=== PATIENT | male | born 1965 | race Caucasian/White ===

== ENCOUNTER 2019-06-01 15:29 | Inpatient (IN) | payer OTHER ==
--- NOTE | 2019-06-01 15:54 | BHS.RME ---
Substance Use & Tx History - Substance Use History Alcohol Substance amount: Beer 10 x 24 ounce, Whiskey: small bottle Frequency of use: Daily Substance route: Oral Date of Last Use: 06/01/19 Opiates (Heroin) Substance amount: 4-5 bags Frequency of use: Daily Substance route: Injection (ex: intravenous or skin popping) Date of Last Use: 06/01/19 Cocaine (Powder) Substance amount: 1-2 bags Frequency of use: Less than 3 times per week Substance route: Inhalation (ex: sniffing or snorting) - Last Treatment Date of last treatment: never here, prior [facility]" Treatment type: Substance Use Disorder (GALDINO) Where was last treatment: Detox Physical/Psych/Mental Status - Behavior General Behavior: Decreased activity Eye Contact: Decreased - Thinking Thought Processes: Loosened - Physical Health Problems Is patient presently having any pain?: Yes (chronic low back pain) Does patient presently have any injuries (include location): No Does patient currently have a fever: No CIWA Nausea/Vomitin-No Nausea/No Vomiting Muscle Tremors: 3 Anxiety: 3 Agitation: 2 Paroxysmal Sweats: 4-Forehead w/Sweat Beads Orientation: 0-Oriented Tacttile Disturbances: 0-None Auditory Disturbances: 2-Mild Harshness/Frighten Visual Disturbances: 1-Very Mild Sensitivity Headache: 0-None Present CIWA-Ar Total Score: 15
[2019-06-01 17:10] VITALS: BMI 29.2
--- NOTE | 2019-06-01 18:18 | HP ---
CIWA Score Nausea/Vomitin-No Nausea/No Vomiting Muscle Tremors: 3 Anxiety: 3 Agitation: 2 Paroxysmal Sweats: 3 (Increased facial moisture) Orientation: 0-Oriented Tacttile Disturbances: 0-None Auditory Disturbances: 0-None Visual Disturbances: 1-Very Mild Sensitivity Headache: 0-None Present CIWA-Ar Total Score: 12 - Admission Criteria OASAS Guidelines: Admission for Medically Managed Detox: Requires at least one of the followin. CIWA greater than 12 2. Seizures within the past 24 hours 3. Delirium tremens within the past 24 hours 4. Hallucinations within the past 24 hours 5. Acute intervention needed for co occurring medical disorder 6. Acute intervention needed for co occurring psychiatric disorder 7. Severe withdrawal that cannot be handled at a lower level of care (continued vomiting, continued diarrhea, abnormal vital signs) requiring intravenous medication and/or fluids 8. Patient presents the following: CIWA greater than 12 Admission Criteria Met: Admission criteria met Admitting History and Physical - Smoking History Smoking history: Current every day smoker Have you smoked in the past 12 months: Yes Aproximately how many cigarettes per day: 20 Admission ROS [facility] Chief Complaint: States here to stop alcohol and heroin". Allergies/Adverse Reactions: Allergies Allergy/AdvReac Type Severity Reaction Status Date / Time No Known Allergies Allergy Verified 06/01/19 16:53 History of Present Illness: 54 yo presents with withdrawal symptoms seeking detox. Utox: + MOP/MTD MOLLY: 0.0 Current Alcohol use x 10 years. 10-15 - 24 oz beers/day; 5 - 1.5 oz bottles/ day. States last drink at 8 AM today. Reviewed and encouraged the importance of having Narcan at home. Current Heroin use 4-5 bags via nasal and IV. States on [facility] MMTP @ Methadone 80 mg/day. States last medicated today. Nicotine use since age 18. Smokes 1 PPD. PMHx: Asthma - denies frequent exacerbation; DM (Metformin, novolog, lantus), chronic LBP, Constipation, PPD+ MHHx: Depression (on meds. Sees a MH provider every 3 months) States used to hear voices years ago. None now. Denies thoughts of harming self or others. SHx: Domiciled. Unemployed. Denies legal problems. Patient Name: Clive Landrum Date: 1965 Address: [id number] [place] [address] Sex: Male Rx Written Rx Dispensed Drug Quantity Days Supply Prescriber Name 05/22/2019 05/23/2019 endocet 10-325 mg tablet 120 30 RosaRemberto prakash MD 04/13/2019 05/13/2019 zolpidem tartrate 10 mg tablet 30 30 Elsa Gruber, [employer] S[employer] MANAGER 04/17/2019 04/20/2019 endocet 10-325 mg tablet 120 30 RosaRemberto sorto MD 04/13/2019 04/13/2019 zolpidem tartrate 10 mg tablet 30 30 Elsa Gruber, HUM[employer] RES[employer] SAFETY MANAGER 03/20/2019 03/21/2019 endocet 10-325 mg tablet 120 30 RosaRemberto sorto MD 01/11/2019 03/13/2019 zolpidem tartrate 10 mg tablet 30 30 FruitmanFelton MD 02/17/2019 02/17/2019 endocet 10-325 mg tablet 120 30 RosaRemberto MD 01/11/2019 02/10/2019 zolpidem tartrate 10 mg tablet 30 30 FruitFelton figueroa MD 01/18/2019 01/19/2019 endocet 10-325 mg tablet 120 30 RosaRemberto MD 01/11/2019 01/11/2019 zolpidem tartrate 10 mg tablet 30 30 FruitFelton figueroa MD 01/04/2019 01/04/2019 endocet 10-325 mg tablet 60 15 RosaRemberto sorto MD 12/21/2018 12/22/2018 endocet 10-325 mg tablet 60 15 RosaRemberto prakash MD 10/05/2018 12/08/2018 zolpidem tartrate 10 mg tablet 30 30 Lolis, Romeeda 12/01/2018 12/01/2018 endocet 10-325 mg tablet 60 15 RosaRemberto sorto MD 11/15/2018 11/16/2018 endocet 10-325 mg tablet 60 15 RosaRemberto sorto MD 10/05/2018 11/08/2018 zolpidem tartrate 10 mg tablet 30 30 Lolis, Romeeda 10/28/2018 10/31/2018 endocet 10-325 mg tablet 60 15 RosaRemberto prakash MD 10/14/2018 10/17/2018 endocet 10-325 mg tablet 60 15 RosaRemberto MD 09/15/2018 10/13/2018 endocet 10-325 mg tablet 60 15 RosaRemberto MD 10/05/2018 10/10/2018 zolpidem tartrate 10 mg tablet 30 30 Lolis, Romeeda 09/29/2018 10/03/2018 endocet 10-325 mg tablet 60 15 RosaRemberto MD 07/13/2018 09/10/2018 zolpidem tartrate 10 mg tablet 30 30 Lolis, Romeeda 09/01/2018 09/02/2018 endocet 10-325 mg tablet 60 15 RosaRemberto MD 08/18/2018 08/19/2018 endocet 10-325 mg tablet 60 15 RosaRemberto MD 07/13/2018 08/12/2018 zolpidem tartrate 10 mg tablet 30 30 Lolis, Romeeda 08/04/2018 08/05/2018 endocet 10-325 mg tablet 60 15 RosaRemberto MD 07/20/2018 07/23/2018 endocet 10-325 mg tablet 60 15 RosaRemberto MD 07/13/2018 07/13/2018 zolpidem tartrate 10 mg tablet 30 30 Lolis, Romeeda 07/08/2018 07/08/2018 endocet 10-325 mg tablet 60 15 RosaRemberto MD 07/08/2018 07/08/2018 zolpidem tartrate 5 mg tablet 30 30 RosaRemberto MD 06/23/2018 06/24/2018 endocet 10-325 mg tablet 60 15 RosaRemberto MD 06/08/2018 06/10/2018 endocet 10-325 mg tablet 60 15 RosaRemberto MD 03/30/2018 06/03/2018 zolpidem tartrate 10 mg tablet 30 30 Felton Cleveland MD Exam Limitations: No Limitations - Ebola screening Have you traveled outside of the country in the last 21 days: No Have you had contact with anyone from an Ebola affected area: No Have you been sick,other than usual withdrawal symptoms: No Do you have a fever: No - Review of Systems Constitutional: Diaphoresis, Changes in sleep (States has insomnia), Weight Stable EENT: reports: Blurred Vision, Dental Problems (No teeth. Denies problems chewing or swollowing) Respiratory: reports: SOB with Exertion (w/ climbing stairs) Cardiac: reports: No Symptoms Reported GI: reports: Blood Streaked Bowels (When pushed hard to have a BM), Constipated (Stool hard and strains w/ BM. States was on meds) : reports: Frequency (3-4 x/night urination. Encouraged to f/u upon discharge. ), Pain (Pain w/ urination) Musculoskeletal: reports: Back Pain (Chronic low back pain "5". Improves w/ heroin. Aware that prescribed endocet will not be given here.) Integumentary: reports: No Symptoms Reported Neuro: reports: No Symptoms reported Endocrine: reports: Increased Thirst Hematology: reports: No Symptoms Reported Psychiatric: reports: Mood/Affect Appropiate, Orientated x3, Depressed (Denies thoughts of harming self or others) Patient History - Patient Medical History Hx Asthma: No Hx Chronic Obstructive Pulmonary Disease (COPD): No Hx Cardiac Disorders: No Hx Hypertension: No Hx Seizures: No Hx Diabetes: No Hx Gastrointestinal Disorders: No Hx Genitourinary Disorders: No Hx Sexually Transmitted Disorders: No Hx Renal Disease (ESRD): No Hx Depression: Yes Hx Suicide Attempt: No Hx Schizophrenia: No - Patient Surgical History Past Surgical History: Yes Hx Neurologic Surgery: No Hx Cataract Extraction: No Hx Cardiac Surgery: No Hx Lung Surgery: No Hx Breast Surgery: No Hx Breast Biopsy: No Hx Abdominal Surgery: No Hx Appendectomy: No Hx Cholecystectomy: No Hx Genitourinary Surgery: No Hx Section: No Hx Orthopedic Surgery: No Other Surgical History: BILATERAL BREAST GLANDULAR SX Anesthesia Reaction: No - PPD History Previous Implant?: Yes Documented Results: Positive w/proof Implanted On Prior R Admission?: No PPD to be Administered?: No - Smoking Cessation Smoking history: Current every day smoker Have you smoked in the past 12 months: Yes Aproximately how many cigarettes per day: 20 Hx Chewing Tobacco Use: No Initiated information on smoking cessation: Yes 'Breaking Loose' booklet given: 06/01/19 - Substance & Tx. History Hx Alcohol Use: Yes Hx Substance Use: Yes Substance Use Type: Alcohol, Heroin Hx Substance Use Treatment: Yes (detox, MMTP) - Substances abused Alcohol Substance route: Oral Frequency: Daily Amount used: liquor- 2 pints, beer- 2 six pack Age of first use: 10 Date of last use: 06/01/19 Heroin Substance route: Inhalation Frequency: Daily Amount used: 5 bags Age of first use: 20 Date of last use: 06/01/19 Admission Physical Exam [facility] - Vital Signs Vital Signs: Vital Signs - 24 hr 06/01/19 16:41 Temperature 96.8 F L Pulse Rate 68 Respiratory 18 Rate Blood Pressure 102/65 - Physical General Appearance: Yes: Nourished, Mild Distress, Tremorous (Mild tremors felt) , Irritable, Sweating (Increased facial moisture), Anxious HEENTM: Yes: EOMI, Hearing grossly Normal, Normocephalic, Normal Voice, YARY ( Pupils = 2 mm), Pharynx Normal (Thickened, whitish saliva), Other (dry mucous membranes) Respiratory: Yes: Lungs Clear (Pulse Ox = 98 %), Normal Breath Sounds, No Respiratory Distress Neck: Yes: No masses,lesions,Nodules, Supple Breast: Yes: Breast Exam Deferred Cardiology: Yes: Regular Rhythm, Regular Rate, S1, S2 Abdominal: Yes: Non Tender, Soft, Increased Bowel Sounds, Protuberent ( Increased abdominal adiposity) Genitourinary: Yes: Nocturia (3-4 x/night urination) Back: Yes: Normal Inspection Musculoskeletal: Yes: full range of Motion, Gait Steady Extremities: Yes: Normal Capillary Refill (periph pulses +), Tremors (Mild tremors felt) Neurological: Yes: inspector integrated circuits II-XII NML intact, Fully Oriented, Alert, Motor Strength 5/5, Normal Response Integumentary: Yes: Normal Color, Warm, Moist (Increased facial moisture.), Track Nichole (Old and track nichole on arms and legs. Newer track nichole on arms w/ increased induration w/o increased erythema and warmth.), Other (Decreased skin turgor) Lymphatic: Yes: Within Normal Limits - Diagnostic (1) Alcohol dependence with withdrawal, uncomplicated Current Visit: Yes Status: Acute (2) Opioid use disorder Current Visit: Yes Status: Chronic Comment: w/ heroin relapse (3) Methadone maintenance therapy patient Current Visit: Yes Status: Chronic (4) Chronic low back pain Current Visit: Yes Status: Chronic Qualifiers: Back pain laterality: midline Sciatica presence: unspecified whether sciatica present Qualified Code(s): M54.5 - Low back pain; G89.29 - Other chronic pain (5) Diabetes mellitus Current Visit: Yes Status: Chronic Qualifiers: Diabetes mellitus type: type 2 Diabetes mellitus long term care social worker insulin use: unspecified [facility] insulin use status Diabetes mellitus complication status : without complication Qualified Code(s): E11.9 - Type 2 diabetes mellitus without complications (6) History of asthma Current Visit: Yes Status: Chronic (7) Overweight (BMI 25.0-29.9) Current Visit: Yes Status: Chronic (8) Nocturia Current Visit: Yes Status: Chronic (9) Track nichole due to intravenous drug abuse Current Visit: Yes Status: Chronic Comment: Old and new track nichole (10) History of positive PPD Current Visit: Yes Status: Chronic Cleared for Admission S - Detox or Rehab [facility] Level of Care: Medically Managed Detox Regimen/Protocol: Librium Claeared for Rehab Admission: No Breathalyzer - Breathalyzer Breathalyzer: 0 Urine Drug Screen - Test Device Lot number: [id number] Expiration date: 03/13/21 - Control Is test valid?: Yes - Results Drug screen NEGATIVE: No Urine drug screen results: MOP-Opiates, MTD-Methadone Inpatient Rehab Admission - Rehab Decision to Admit Inpatient rehab admission?: No
[2019-06-01] MEDS ORDERED: METHOCARBAMOL 500 MG TABLET PO PRN (19:05)
[2019-06-01] MEDS ORDERED: chlordiazePOXIDE HCL 10 MG CAPSULE PO PRN (19:05)
[2019-06-01] MEDS ORDERED: BISMUTH SUBSALICYLATE 524 MG/30 ML UD PO PRN (19:05)
[2019-06-01] MEDS ORDERED: MENTHOL/PHENOL 1 EACH UD MM PRN (19:05)
[2019-06-01] MEDS ORDERED: IBUPROFEN 400 MG TABLET (FP) PO PRN (19:05)
[2019-06-01] MEDS ORDERED: guaiFENesin 200 MG/10 ML 10 ML UNIT-DOSE CUPS PO PRN (19:05)
[2019-06-01] MEDS ORDERED: ACETAMINOPHEN 325 MG TABLET (FP) PO PRN ×2 (19:05)
[2019-06-01] MEDS ORDERED: MAGNESIUM HYDROX 2400MG/30ML ORAL SUSPENSION 30 ML CUP PO PRN (19:05)
[2019-06-01] MEDS ORDERED: MAGNESIUM CITRATE 300 ML BOTTLE PO PRN (19:05)
[2019-06-01] MEDS ORDERED: NICOTINE POLACRILEX 2 MG GUM BUC PRN (19:05)
[2019-06-01] MEDS ORDERED: MAG HYDROX/AL HYDROX/SIMETH 30 ML UNIT-DOSE CUP PO PRN (19:05)
[2019-06-01] MEDS ORDERED: QUEtiapine FUMARATE 50 MG TABLET PO ONE (19:45)
[2019-06-01] MEDS: chlordiazePOXIDE HCL 25 MG CAPSULE PO SCH (20:27)
[2019-06-01] MEDS ORDERED: MELATONIN 5 MG TABLETS PO PRN (22:00)
[2019-06-01] MEDS: THIAMINE HCL 100 MG TABLET (FP) PO SCH (22:31)
[2019-06-01] MEDS: BACITRACIN 0.9 GM PACKET TP SCH (22:33)
[2019-06-01] MEDS: INSULIN (LEVEMIR) 100 UNITS/ML UNITS SQ SCH (22:33)
[2019-06-01] MEDS: INSULIN SLIDING SCALE (NOVOLOG) 1 VIAL SQ SCH (22:34)
[2019-06-01] MEDS ORDERED: INSULIN SLIDING SCALE (NOVOLOG) 1 VIAL SQ ONE (22:49)
[2019-06-02] MEDS: chlordiazePOXIDE HCL 25 MG CAPSULE PO SCH ×3 (06:45→21:12)
[2019-06-02] MEDS: metFORMIN HCL 500 MG TABLET (FP) PO SCH ×2 (06:45→18:01)
[2019-06-02] MEDS: INSULIN SLIDING SCALE (NOVOLOG) 1 VIAL SQ SCH ×4 (08:02→21:13)
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
[2019-06-02 09:47] LABS: HEMATOCRIT 39.1 % (35.4-49); HEMOGLOBIN 13.4 GM/dL (11.7-16.9); MCH 29.6 pg (25.7-33.7); MCHC 34.3 g/dl (32.0-35.9); MEAN CELL VOLUME 86.2 fl (80-96); MEAN PLT VOLUME 9.6 fl (7.5-11.1); PLATELET COUNT 178 K/MM3 (134-434); RBC 4.54 M/mm3 (4.00-5.60); RDW 13.4 % (11.9-15.9); WHITE BLOOD COUNT 5.3 K/mm3 (4.0-10.0)
[2019-06-02 10:14] LABS: ALBUMIN 2.9 g/dl (3.4-5.0); BILIRUBIN,TOTAL 0.3 mg/dL (0.2-1); BLOOD UREA NITROGEN 8.7 mg/dL (7-18); CALCIUM 8.5 mg/dL (8.5-10.1); CREATININE 0.6 mg/dL (0.55-1.3); POTASSIUM 3.9 mmol/L (3.5-5.1); TOT PROT 6.9 g/dl (6.4-8.2)
[2019-06-02] MEDS: PRENATAL VITAMINS W/ FOLIC ACID TABLET (FP) PO SCH (10:35)
[2019-06-02] MEDS: DULoxetine HCL 20 MG CAPSULE.DR PO SCH ×2 (10:35→21:12)
[2019-06-02] MEDS: BACITRACIN 0.9 GM PACKET TP SCH ×2 (10:36→21:12)
[2019-06-02] MEDS: NICOTINE 21 MG/24 HOURS TOPICAL PATCH TD SCH (10:36)
--- NOTE | 2019-06-02 12:12 | EKG ---
Test Reason : Blood Pressure : / mmHG Vent. Rate : 071 BPM Atrial Rate : 071 BPM P-R Int : 164 ms QRS Dur : 094 ms QT Int : 422 ms P-R-T Axes : 073 017 054 degrees QTc Int : 458 ms NORMAL SINUS RHYTHM NO PREVIOUS ECGS AVAILABLE Confirmed by ROSE EDWARD MD ([id number]) on 06/02/2019 12:12:19 PM Referred By: LOVE Confirmed By:ROSE EDWARD MD
[2019-06-02] MEDS ORDERED: METHADONE HCL 40 MG DISPERSABLE TABLET PO ONE (12:24)
--- NOTE | 2019-06-02 14:01 | PN ---
[facility] CIWA - CIWA Score Nausea/Vomitin-Mild Nausea/No Vomiting Muscle Tremors: 2 Anxiety: 2 Agitation: 2 Paroxysmal Sweats: No Perspiration Orientation: 0-Oriented Tacttile Disturbances: 1-Very Mild Itch/Numbness Auditory Disturbances: 0-None Visual Disturbances: 0-None Headache: 2-Mild CIWA-Ar Total Score: 10 S Progress Note (SOAP) Subjective: alert,irritable,anxious,interrupted sleep Objective: 06/02/19 13:57 Vital Signs Temperature 98.1 F 06/02/19 09:20 Pulse Rate 87 06/02/19 09:20 Respiratory Rate 18 06/02/19 09:20 Blood Pressure 113/59 L 06/02/19 09:20 O2 Sat by Pulse Oximetry (%) 06/02/19 13:58 Laboratory Last Values WBC 5.3 K/mm3 (4.0-10.0) 06/02/19 07:25 RBC 4.54 M/mm3 (4.00-5.60) 06/02/19 07:25 Hgb 13.4 GM/dL (11.7-16.9) 06/02/19 07:25 Hct 39.1 % (35.4-49) 06/02/19 07:25 MCV 86.2 fl (80-96) 06/02/19 07:25 MCH 29.6 pg (25.7-33.7) 06/02/19 07:25 MCHC 34.3 g/dl (32.0-35.9) 06/02/19 07:25 RDW 13.4 % (11.9-15.9) 06/02/19 07:25 Plt Count 178 K/MM3 (134-434) 06/02/19 07:25 MPV 9.6 fl (7.5-11.1) 06/02/19 07:25 Sodium 139 mmol/L (136-145) 06/02/19 07:25 Potassium 3.9 mmol/L (3.5-5.1) 06/02/19 07:25 Chloride 105 mmol/L (98-107) 06/02/19 07:25 Carbon Dioxide 28 mmol/L (21-32) 06/02/19 07:25 Anion Gap 7 MMOL/L (8-16) L 06/02/19 07:25 BUN 8.7 mg/dL (7-18) 06/02/19 07:25 Creatinine 0.6 mg/dL (0.55-1.3) 06/02/19 07:25 Est GFR (CKD-EPI)AfAm 132.11 06/02/19 07:25 Est GFR (CKD-EPI)NonAf 113.99 06/02/19 07:25 POC Glucometer 281 UNITS (80-120) 06/02/19 10:41 Random Glucose 267 mg/dL (74-106) H 06/02/19 07:25 Calcium 8.5 mg/dL (8.5-10.1) 06/02/19 07:25 Total Bilirubin 0.3 mg/dL (0.2-1) 06/02/19 07:25 AST 17 U/L (15-37) 06/02/19 07:25 ALT 24 U/L (13-61) 06/02/19 07:25 Alkaline Phosphatase 110 U/L (45-117) 06/02/19 07:25 Total Protein 6.9 g/dl (6.4-8.2) 06/02/19 07:25 Albumin 2.9 g/dl (3.4-5.0) L 06/02/19 07:25 RPR Titer Nonreactive (NONREACTIVE) 06/02/19 07:25 Assessment: 06/02/19 13:58 withdrawal symptom Plan: continue detox librium regimen,bgm monitoring with insulin coverage
[2019-06-02] MEDS ORDERED: INSULIN SLIDING SCALE (NOVOLOG) 1 VIAL SQ ONE (17:14)
[2019-06-02] MEDS: QUEtiapine FUMARATE 100 MG TABLET (FP) PO SCH (21:12)
[2019-06-02] MEDS: INSULIN (LEVEMIR) 100 UNITS/ML UNITS SQ SCH (21:12)
[2019-06-02] MEDS ORDERED: SUVOREXANT 10 MG TABLET PO PRN (22:00)
[2019-06-02] MEDS: THIAMINE HCL 100 MG TABLET (FP) PO SCH (22:28)
[2019-06-03] MEDS: METHADONE HCL 40 MG DISPERSABLE TABLET PO SCH (05:19)
[2019-06-03] MEDS: chlordiazePOXIDE 5 MG CAPSULE PO SCH ×3 (05:19→22:13)
[2019-06-03] MEDS: metFORMIN HCL 500 MG TABLET (FP) PO SCH ×2 (06:57→17:33)
[2019-06-03] MEDS: INSULIN SLIDING SCALE (NOVOLOG) 1 VIAL SQ SCH ×4 (07:50→22:14)
--- NOTE | 2019-06-03 09:56 | PN ---
S CIWA - CIWA Score Nausea/Vomitin-No Nausea/No Vomiting Muscle Tremors: 1-None Visible, but Tolstoy Anxiety: 1-Mildly Anxious Agitation: 1-Slight > Activity Paroxysmal Sweats: 1-Minimal Palms Moist Orientation: 0-Oriented Tacttile Disturbances: 0-None Auditory Disturbances: 0-None Visual Disturbances: 0-None Headache: 1-Very Mild CIWA-Ar Total Score: 5 BHS Progress Note (SOAP) Subjective: pt states he is feeling fine. O: Vital Signs - 24 hr 06/02/19 06/02/19 06/02/19 14:55 17:45 20:25 Temperature 98.1 F 97 F L 99.3 F Pulse Rate 85 82 61 Respiratory 18 18 17 Rate Blood Pressure 127/68 141/65 133/97 06/03/19 06/03/19 06/03/19 00:39 04:17 05:14 Temperature 98.1 F Pulse Rate 65 Respiratory 18 18 17 Rate Blood Pressure 138/65 06/03/19 09:39 Temperature 96.6 F L Pulse Rate 87 Respiratory 17 Rate Blood Pressure 124/58 L Laboratory Tests 06/01/19 06/02/19 06/02/19 22:27 06:39 07:25 WBC 5.3 RBC 4.54 Hgb 13.4 Hct 39.1 MCV 86.2 MCH 29.6 MCHC 34.3 RDW 13.4 Plt Count 178 MPV 9.6 Sodium Potassium Chloride Carbon Dioxide Anion Gap BUN Creatinine Est GFR (CKD-EPI)AfAm Est GFR (CKD-EPI)NonAf POC Glucometer 578 268 Random Glucose Calcium Total Bilirubin AST ALT Alkaline Phosphatase Total Protein Albumin RPR Titer 06/02/19 06/02/19 06/02/19 07:25 07:25 10:41 WBC RBC Hgb Hct MCV MCH MCHC RDW Plt Count MPV Sodium 139 Potassium 3.9 Chloride 105 Carbon Dioxide 28 Anion Gap 7 L BUN 8.7 Creatinine 0.6 Est GFR (CKD-EPI)AfAm 132.11 Est GFR (CKD-EPI)NonAf 113.99 POC Glucometer 281 Random Glucose 267 H Calcium 8.5 Total Bilirubin 0.3 AST 17 ALT 24 Alkaline Phosphatase 110 Total Protein 6.9 Albumin 2.9 L RPR Titer Nonreactive 06/02/19 06/02/19 06/03/19 16:41 20:40 05:18 WBC RBC Hgb Hct MCV MCH MCHC RDW Plt Count MPV Sodium Potassium Chloride Carbon Dioxide Anion Gap BUN Creatinine Est GFR (CKD-EPI)AfAm Est GFR (CKD-EPI)NonAf POC Glucometer 360 951 286 Random Glucose Calcium Total Bilirubin AST ALT Alkaline Phosphatase Total Protein Albumin RPR Titer a/p: OUD - methadone maintenance AUD- alcohol detox protocol DM- SS insulin coverage
[2019-06-03] MEDS: DULoxetine HCL 20 MG CAPSULE.DR PO SCH ×2 (11:36→22:13)
[2019-06-03] MEDS: NICOTINE 21 MG/24 HOURS TOPICAL PATCH TD SCH (11:36)
[2019-06-03] MEDS: PRENATAL VITAMINS W/ FOLIC ACID TABLET (FP) PO SCH (11:36)
[2019-06-03] MEDS: BACITRACIN 0.9 GM PACKET TP SCH ×2 (11:36→22:13)
[2019-06-03] MEDS: THIAMINE HCL 100 MG TABLET (FP) PO SCH (22:13)
[2019-06-03] MEDS: QUEtiapine FUMARATE 100 MG TABLET (FP) PO SCH (22:13)
[2019-06-03] MEDS: INSULIN (LEVEMIR) 100 UNITS/ML UNITS SQ SCH (22:14)
[2019-06-04] MEDS ORDERED: chlordiazePOXIDE HCL 10 MG CAPSULE PO PRN
[2019-06-04] MEDS: METHADONE HCL 40 MG DISPERSABLE TABLET PO SCH (05:18)
[2019-06-04] MEDS: chlordiazePOXIDE HCL 10 MG CAPSULE PO SCH ×3 (05:18→21:39)
[2019-06-04] MEDS: INSULIN SLIDING SCALE (NOVOLOG) 1 VIAL SQ SCH ×4 (07:41→21:34)
[2019-06-04] MEDS: metFORMIN HCL 500 MG TABLET (FP) PO SCH ×2 (07:43→17:22)
[2019-06-04] MEDS: BACITRACIN 0.9 GM PACKET TP SCH ×2 (11:09→23:07)
[2019-06-04] MEDS: NICOTINE 21 MG/24 HOURS TOPICAL PATCH TD SCH (11:09)
[2019-06-04] MEDS: PRENATAL VITAMINS W/ FOLIC ACID TABLET (FP) PO SCH (11:09)
[2019-06-04] MEDS: DULoxetine HCL 20 MG CAPSULE.DR PO SCH ×2 (11:09→21:39)
--- NOTE | 2019-06-04 11:10 | PN ---
S CIWA - CIWA Score Nausea/Vomitin-No Nausea/No Vomiting Muscle Tremors: None Anxiety: 2 Agitation: 3 Paroxysmal Sweats: No Perspiration Orientation: 0-Oriented Tacttile Disturbances: 0-None Auditory Disturbances: 0-None Visual Disturbances: 0-None Headache: 0-None Present CIWA-Ar Total Score: 5 BHS Progress Note (SOAP) Subjective: Patient admitted for alcohol detox. Complains of anxiety, restlessness and constipation. Objective: 06/04/19 11:09 Vital Signs Temperature 97.7 F 06/04/19 08:35 Pulse Rate 67 06/04/19 08:35 Respiratory Rate 18 06/04/19 08:35 Blood Pressure 122/70 06/04/19 08:35 O2 Sat by Pulse Oximetry (%) Laboratory Tests 06/01/19 06/02/19 06/02/19 22:27 06:39 07:25 WBC 5.3 RBC 4.54 Hgb 13.4 Hct 39.1 MCV 86.2 MCH 29.6 MCHC 34.3 RDW 13.4 Plt Count 178 MPV 9.6 Sodium Potassium Chloride Carbon Dioxide Anion Gap BUN Creatinine Est GFR (CKD-EPI)AfAm Est GFR (CKD-EPI)NonAf POC Glucometer 578 268 Random Glucose Calcium Total Bilirubin AST ALT Alkaline Phosphatase Total Protein Albumin RPR Titer 06/02/19 06/02/19 06/02/19 07:25 07:25 10:41 WBC RBC Hgb Hct MCV MCH MCHC RDW Plt Count MPV Sodium 139 Potassium 3.9 Chloride 105 Carbon Dioxide 28 Anion Gap 7 L BUN 8.7 Creatinine 0.6 Est GFR (CKD-EPI)AfAm 132.11 Est GFR (CKD-EPI)NonAf 113.99 POC Glucometer 281 Random Glucose 267 H Calcium 8.5 Total Bilirubin 0.3 AST 17 ALT 24 Alkaline Phosphatase 110 Total Protein 6.9 Albumin 2.9 L RPR Titer Nonreactive 06/02/19 06/02/19 06/03/19 16:41 20:40 05:18 WBC RBC Hgb Hct MCV MCH MCHC RDW Plt Count MPV Sodium Potassium Chloride Carbon Dioxide Anion Gap BUN Creatinine Est GFR (CKD-EPI)AfAm Est GFR (CKD-EPI)NonAf POC Glucometer 360 266 286 Random Glucose Calcium Total Bilirubin AST ALT Alkaline Phosphatase Total Protein Albumin RPR Titer 06/03/19 06/03/19 06/03/19 11:40 16:39 21:49 WBC RBC Hgb Hct MCV MCH MCHC RDW Plt Count MPV Sodium Potassium Chloride Carbon Dioxide Anion Gap BUN Creatinine Est GFR (CKD-EPI)AfAm Est GFR (CKD-EPI)NonAf POC Glucometer 376 356 331 Random Glucose Calcium Total Bilirubin AST ALT Alkaline Phosphatase Total Protein Albumin RPR Titer 06/04/19 05:17 WBC RBC Hgb Hct MCV MCH MCHC RDW Plt Count MPV Sodium Potassium Chloride Carbon Dioxide Anion Gap BUN Creatinine Est GFR (CKD-EPI)AfAm Est GFR (CKD-EPI)NonAf POC Glucometer 247 Random Glucose Calcium Total Bilirubin AST ALT Alkaline Phosphatase Total Protein Albumin RPR Titer PE alert and oriented x 3 skin warm and dry +perrla, eoms intact bl ext full rom, no tremors anxious, pacing in mercer Assessment: 06/04/19 11:10 ETOH withdrawal symptoms Plan: continue detox for d/c in am [facility] as per prn order
[2019-06-04] MEDS: QUEtiapine FUMARATE 100 MG TABLET (FP) PO SCH (21:39)
[2019-06-04] MEDS: THIAMINE HCL 100 MG TABLET (FP) PO SCH (21:40)
[2019-06-04] MEDS: INSULIN (LEVEMIR) 100 UNITS/ML UNITS SQ SCH (21:43)
[2019-06-04 23:23] VITALS: BP 115/50; PULSE 68; TEMP 98.1
[2019-06-05] MEDS ORDERED: chlordiazePOXIDE HCL 10 MG CAPSULE PO ONE (05:00)
[2019-06-05] MEDS: METHADONE HCL 40 MG DISPERSABLE TABLET PO SCH (05:11)
[2019-06-05] MEDS: metFORMIN HCL 500 MG TABLET (FP) PO SCH (06:30)
[2019-06-05] MEDS: INSULIN SLIDING SCALE (NOVOLOG) 1 VIAL SQ SCH ×2 (07:50→11:11)
--- NOTE | 2019-06-05 08:56 | PN ---
[facility] CIWA - CIWA Score Nausea/Vomitin-No Nausea/No Vomiting Muscle Tremors: 1-None Visible, but [place] Anxiety: 1-Mildly Anxious Agitation: 1-Slight > Activity Paroxysmal Sweats: No Perspiration Orientation: 0-Oriented Tacttile Disturbances: 0-None Auditory Disturbances: 0-None Visual Disturbances: 0-None Headache: 0-None Present CIWA-Ar Total Score: 3 BHS Progress Note (SOAP) Subjective: alert,no complaint Objective: 06/05/19 08:53 Vital Signs Temperature 98.1 F 06/04/19 20:24 Pulse Rate 68 06/04/19 20:24 Respiratory Rate 18 06/05/19 03:30 Blood Pressure 115/50 L 06/04/19 20:24 O2 Sat by Pulse Oximetry (%) Laboratory Last Values WBC 5.3 K/mm3 (4.0-10.0) 06/02/19 07:25 RBC 4.54 M/mm3 (4.00-5.60) 06/02/19 07:25 Hgb 13.4 GM/dL (11.7-16.9) 06/02/19 07:25 Hct 39.1 % (35.4-49) 06/02/19 07:25 MCV 86.2 fl (80-96) 06/02/19 07:25 MCH 29.6 pg (25.7-33.7) 06/02/19 07:25 MCHC 34.3 g/dl (32.0-35.9) 06/02/19 07:25 RDW 13.4 % (11.9-15.9) 06/02/19 07:25 Plt Count 178 K/MM3 (134-434) 06/02/19 07:25 MPV 9.6 fl (7.5-11.1) 06/02/19 07:25 Sodium 139 mmol/L (136-145) 06/02/19 07:25 Potassium 3.9 mmol/L (3.5-5.1) 06/02/19 07:25 Chloride 105 mmol/L (98-107) 06/02/19 07:25 Carbon Dioxide 28 mmol/L (21-32) 06/02/19 07:25 Anion Gap 7 MMOL/L (8-16) L 06/02/19 07:25 BUN 8.7 mg/dL (7-18) 06/02/19 07:25 Creatinine 0.6 mg/dL (0.55-1.3) 06/02/19 07:25 Est GFR (CKD-EPI)AfAm 132.11 06/02/19 07:25 Est GFR (CKD-EPI)NonAf 113.99 06/02/19 07:25 POC Glucometer 338 UNITS (80-120) 06/05/19 05:13 Random Glucose 267 mg/dL (74-106) H 06/02/19 07:25 Calcium 8.5 mg/dL (8.5-10.1) 06/02/19 07:25 Total Bilirubin 0.3 mg/dL (0.2-1) 06/02/19 07:25 AST 17 U/L (15-37) 06/02/19 07:25 ALT 24 U/L (13-61) 06/02/19 07:25 Alkaline Phosphatase 110 U/L (45-117) 06/02/19 07:25 Total Protein 6.9 g/dl (6.4-8.2) 06/02/19 07:25 Albumin 2.9 g/dl (3.4-5.0) L 06/02/19 07:25 RPR Titer Nonreactive (NONREACTIVE) 06/02/19 07:25 Assessment: 06/05/19 08:55 detox completed,no withdrawal symptom Plan: discharge today,follow up with after care program as arrangement and medical provider at [facility],has all medications at home
--- NOTE | 2019-06-05 09:02 | DS ---
[facility] Detox Discharge Summary Admission Date: 06/01/19 Discharge Date: 06/05/19 - History Present History: Alcohol Dependence, MMTP Additional Comments: alert,oriented x 3 ambulation on the unit heart normal heart sound lung clear,no wheezing no abdominal pain stable for discharge,follow up with outpatient program at [facility] and medical provider time spending on discharge 30 mins patient has all medications at home Pertinent Past History: iddm mmtp depression - Physical Exam Results Vital Signs: Vital Signs Temperature 98.1 F 06/04/19 20:24 Pulse Rate 68 06/04/19 20:24 Respiratory Rate 18 06/05/19 03:30 Blood Pressure 115/50 L 06/04/19 20:24 O2 Sat by Pulse Oximetry (%) Pertinent Admission Physical Exam Findings: withdrawal signs and symptom Laboratory Last Values WBC 5.3 K/mm3 (4.0-10.0) 06/02/19 07:25 RBC 4.54 M/mm3 (4.00-5.60) 06/02/19 07:25 Hgb 13.4 GM/dL (11.7-16.9) 06/02/19 07:25 Hct 39.1 % (35.4-49) 06/02/19 07:25 MCV 86.2 fl (80-96) 06/02/19 07:25 MCH 29.6 pg (25.7-33.7) 06/02/19 07:25 MCHC 34.3 g/dl (32.0-35.9) 06/02/19 07:25 RDW 13.4 % (11.9-15.9) 06/02/19 07:25 Plt Count 178 K/MM3 (134-434) 06/02/19 07:25 MPV 9.6 fl (7.5-11.1) 06/02/19 07:25 Sodium 139 mmol/L (136-145) 06/02/19 07:25 Potassium 3.9 mmol/L (3.5-5.1) 06/02/19 07:25 Chloride 105 mmol/L (98-107) 06/02/19 07:25 Carbon Dioxide 28 mmol/L (21-32) 06/02/19 07:25 Anion Gap 7 MMOL/L (8-16) L 06/02/19 07:25 BUN 8.7 mg/dL (7-18) 06/02/19 07:25 Creatinine 0.6 mg/dL (0.55-1.3) 06/02/19 07:25 Est GFR (CKD-EPI)AfAm 132.11 06/02/19 07:25 Est GFR (CKD-EPI)NonAf 113.99 06/02/19 07:25 POC Glucometer 338 UNITS (80-120) 06/05/19 05:13 Random Glucose 267 mg/dL (74-106) H 06/02/19 07:25 Calcium 8.5 mg/dL (8.5-10.1) 06/02/19 07:25 Total Bilirubin 0.3 mg/dL (0.2-1) 06/02/19 07:25 AST 17 U/L (15-37) 06/02/19 07:25 ALT 24 U/L (13-61) 06/02/19 07:25 Alkaline Phosphatase 110 U/L (45-117) 06/02/19 07:25 Total Protein 6.9 g/dl (6.4-8.2) 06/02/19 07:25 Albumin 2.9 g/dl (3.4-5.0) L 06/02/19 07:25 RPR Titer Nonreactive (NONREACTIVE) 06/02/19 07:25 - Treatment Hospital Course: Detox Protocol Followed, Detoxed Safely, Responded well, Discharged Condition Good Patient has Accepted a Rehab Referral to: declined - Medication Discharge Medications: Ambulatory Orders Duloxetine HCl [Cymbalta -] 20 mg PO BID 06/01/19 Insulin (LOG) Aspart [NovoLOG -] 15 units SQ BID 06/01/19 Insulin Glargine,Hum.rec.anlog [Lantus Solostar PEN (NF)] 40 units SQ HS Metformin HCl [Glucophage] 500 mg PO BID 06/01/19 Quetiapine Fumarate [Seroquel -] 100 mg PO HS 06/01/19 Zolpidem Tartrate [Ambien] 10 mg PO HS 06/01/19 - Diagnosis (1) Alcohol dependence with withdrawal, uncomplicated Current Visit: Yes Status: Acute (2) Diabetes mellitus Current Visit: Yes Status: Chronic Qualifiers: Diabetes mellitus type: type 2 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
[2019-06-05] MEDS: BACITRACIN 0.9 GM PACKET TP SCH (11:10)
[2019-06-05] MEDS: NICOTINE 21 MG/24 HOURS TOPICAL PATCH TD SCH (11:11)
[2019-06-05] MEDS: PRENATAL VITAMINS W/ FOLIC ACID TABLET (FP) PO SCH (11:11)
[2019-06-05] MEDS: DULoxetine HCL 20 MG CAPSULE.DR PO SCH (11:11)
== END 2019-06-05 10:16 | disposition home or self-care (01) | DRG 773 ==
LOC: YASAS 15:29 → Y6N 19:40
PROVIDERS: ADMIT Allergy & Immunology; ATTEND Allergy & Immunology
PROC: HZ2ZZZZ Detoxification Services for Substance Abuse Treatment (ICD-10-PCS; principal; 2019-06-01)
DX: F10.230 Alcohol dependence with withdrawal, uncomplicated (principal); F11.20 Opioid dependence, uncomplicated; F14.10 Cocaine abuse, uncomplicated; F17.210 Nicotine dependence, cigarettes, uncomplicated; F33.2 Major depressive disorder, recurrent severe without psychotic features; F19.282 Other psychoactive substance dependence with psychoactive substance-induced sleep disorder; F19.24 Other psychoactive substance dependence with psychoactive substance-induced mood disorder; E11.9 Type 2 diabetes mellitus without complications; Z79.4 Long term (current) use of insulin; K59.00 Constipation, unspecified; J45.909 Unspecified asthma, uncomplicated; M54.5 Low back pain; G89.29 Other chronic pain; R76.11 Nonspecific reaction to tuberculin skin test without active tuberculosis; R35.1 Nocturia; E66.9 Obesity, unspecified; Z68.29 Body mass index [BMI] 29.0-29.9, adult
CPT/HCPCS: 36415; 71046-TC-FY; 80053; 82962; 85027; 86593; 93005; 93010

== ENCOUNTER 2019-12-26 13:20 | Inpatient (IN) | payer OTHER ==
--- NOTE | 2019-12-26 13:31 | BHS.RME ---
Substance Use & Tx History - Substance Use History Alcohol Substance amount: 8 beers 24 0z Frequency of use: Daily Substance route: Oral Date of Last Use: 12/26/19 Heroin Substance amount: 3-4 bags Frequency of use: Daily Substance route: Inhalation (ex: sniffing or snorting) Date of Last Use: 12/25/19 Nicotine Substance amount: 20 ciggs Frequency of use: Daily Substance route: Smoking Date of Last Use: 12/26/19 - Last Treatment Date of last treatment: 11/27-12/03/19 completed detox but did not proceed to rehab though it was off Treatment type: Substance Use Disorder (GALDINO) Where was last treatment: Detox CIWA Nausea/Vomitin Muscle Tremors: 3 Anxiety: 3 Agitation: 3 Paroxysmal Sweats: 4-Forehead w/Sweat Beads Orientation: 0-Oriented Tacttile Disturbances: 1-Very Mild Itch/Numbness Auditory Disturbances: 0-None Visual Disturbances: 0-None Headache: 1-Very Mild CIWA-Ar Total Score: 18
--- NOTE | 2019-12-26 15:18 | HP ---
CIWA Score Nausea/Vomitin Muscle Tremors: 3 Anxiety: 3 Agitation: 3 Paroxysmal Sweats: 4-Forehead w/Sweat Beads Orientation: 0-Oriented Tacttile Disturbances: 1-Very Mild Itch/Numbness Auditory Disturbances: 0-None Visual Disturbances: 0-None Headache: 1-Very Mild CIWA-Ar Total Score: 18 - Admission Criteria OASAS Guidelines: Admission for Medically Managed Detox: Requires at least one of the followin. CIWA greater than 12 2. Seizures within the past 24 hours 3. Delirium tremens within the past 24 hours 4. Hallucinations within the past 24 hours 5. Acute intervention needed for co occurring medical disorder 6. Acute intervention needed for co occurring psychiatric disorder 7. Severe withdrawal that cannot be handled at a lower level of care (continued vomiting, continued diarrhea, abnormal vital signs) requiring intravenous medication and/or fluids 8. Admitting History and Physical - Admission Chief Complaint: alcohl and detox History of Present Illness: Patient is a 54 y/o male with a history of DM, anxiety, depression, and HTN who presents for alcohol detox. patient started drink at age 20. patient drinks 5 24 oz beers a day. Patient denies seizures. Endorses hx of blackouts and needing an eye form maker plaster. Last used today. Patient also uses 5-6 bags of heroin. Patient uses every day. Patient uses IV or sniffs it. Last used yesterday. Denies hx of overdose. Patient takes 90 mg of methadone daily through [facility]. Patient smokes 7-8 cigarettes a day. - Substance Use History Alcohol Substance amount: 8 beers 24 0z Frequency of use: Daily Substance route: Oral Date of Last Use: 12/26/19 Heroin Substance amount: 3-4 bags Frequency of use: Daily Substance route: Inhalation (ex: sniffing or snorting) Date of Last Use: 12/25/19 Nicotine Substance amount: 20 ciggs Frequency of use: Daily Substance route: Smoking Date of Last Use: 12/26/19 - Last Treatment Date of last treatment: 11/27-12/03/19 completed detox but did not proceed to rehab though it was off Treatment type: Substance Use Disorder (GALDINO) Where was last treatment: Detox PSHX: gynecomastia, breast reduction Social hx: lives in an apartment in the [place], unemployed, uses SSI Patient meets inpatient criteria for alcohol detox, high CIWA and poor social support. - Smoking History Smoking history: Current every day smoker Have you smoked in the past 12 months: Yes Aproximately how many cigarettes per day: 10 - Alcohol/Substance Use Hx Alcohol Use: Yes Admission ROS S - HPI Allergies/Adverse Reactions: Allergies Allergy/AdvReac Type Severity Reaction Status Date / Time No Known Allergies Allergy Verified 12/26/19 16:33 - Review of Systems Constitutional: Other (denies fever) EENT: denies: Blurred Vision, Tinnitus Respiratory: denies: Cough, Shortness of Breath, Wheezing Cardiac: denies: Chest Pain GI: denies: Nausea, Vomiting : reports: Dysuria Musculoskeletal: reports: Back Pain Neuro: reports: Headache. denies: Tremors Hematology: denies: Anemia Psychiatric: reports: Depressed Patient History - Patient Medical History Hx Asthma: Yes (NO PUMP) Hx Chronic Obstructive Pulmonary Disease (COPD): No Hx Cardiac Disorders: No Hx Hypertension: No Hx Seizures: No Hx Diabetes: Yes (ON MEDS) Hx Gastrointestinal Disorders: No Hx Genitourinary Disorders: No Hx Sexually Transmitted Disorders: No Hx Renal Disease (ESRD): No Hx Depression: Yes Hx Suicide Attempt: No Hx Schizophrenia: No - Patient Surgical History Past Surgical History: Yes Hx Neurologic Surgery: No Hx Cataract Extraction: No Hx Cardiac Surgery: No Hx Lung Surgery: No Hx Breast Surgery: No Hx Breast Biopsy: No Hx Abdominal Surgery: No Hx Appendectomy: No Hx Cholecystectomy: No Hx Genitourinary Surgery: No Hx Section: No Hx Orthopedic Surgery: No Other Surgical History: BILATERAL BREAST GLANDULAR SX Anesthesia Reaction: No - Smoking Cessation Smoking history: Current every day smoker Have you smoked in the past 12 months: Yes Aproximately how many cigarettes per day: 10 Hx Chewing Tobacco Use: No Initiated information on smoking cessation: No - Substances abused Alcohol Substance route: Oral Frequency: Daily Amount used: BEER- 1 SIX PK Age of first use: 22 Date of last use: 12/26/19 Heroin Substance route: Inhalation Frequency: Daily Amount used: 3 BAGS Age of first use: 26 Date of last use: 12/25/19 Admission Physical Exam S - Physical General Appearance: Yes: Nourished, Appropriately Dressed HEENTM: Yes: Normocephalic Respiratory: Yes: Normal Breath Sounds, No Respiratory Distress, No Accessory Muscle Use Breast: Yes: Other, Surgical Scar (b/l breasts) Cardiology: Yes: Regular Rhythm, Regular Rate Abdominal: Yes: Non Tender, Flat, Soft Musculoskeletal: Yes: Within Normal Limits Extremities: Yes: Normal Inspection, Normal Range of Motion Neurological: Yes: Fully Oriented, Alert, Normal Response Integumentary: Yes: Dry - Diagnostic (1) Alcohol dependence with withdrawal, uncomplicated Current Visit: No Status: Acute (2) Nicotine dependence Current Visit: No Status: Acute Qualifiers: Nicotine product type: cigarettes Substance use status: in withdrawal Qualified Code(s): F17.213 - Nicotine dependence, cigarettes, with withdrawal (3) Chronic low back pain Current Visit: No Status: Chronic Qualifiers: Back pain laterality: midline Sciatica presence: unspecified whether sciatica present Qualified Code(s): M54.5 - Low back pain; G89.29 - Other chronic pain (4) Diabetes mellitus Current Visit: No Status: Chronic Qualifiers: Diabetes mellitus type: type 2 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 terminal block assembler insulin use status Diabetes mellitus complication status: without complication Qualified Code(s): E11.9 - Type 2 diabetes mellitus without complications (5) History of depression Current Visit: No Status: Chronic (6) Opioid dependence on agonist therapy Current Visit: No Status: Chronic (7) History of positive PPD Current Visit: No Status: Resolved (8) Positive PPD Current Visit: Yes Status: Acute Cleared for Admission S - Detox or Rehab [facility] Level of Care: Medically Managed Detox Regimen/Protocol: Librium Breathalyzer - Breathalyzer Breathalyzer: 0 Vital Signs - Vital Signs Vital signs refused: No Temperature: 97.2 F Temperature source: Oral Pulse Rate: 86 Respiratory Rate: 12 Blood Pressure: 101/72 BP Location: Left Arm - Height Height: 5 ft 11 in - Weight Weight: 88.904 kg - BMI Body Mass Index (BMI): 27.3 Urine Drug Screen - Test Device Lot number: [id number] Expiration date: 11/20/21 - Control Is test valid?: Yes - Results Drug screen NEGATIVE: No Urine drug screen results: FEN-Fentanyl, MOP-Opiates, OXY-Oxycodone, MTD- Methadone Inpatient Rehab Admission - Rehab Decision to Admit Inpatient rehab admission?: No
[2019-12-26 15:33] VITALS: BMI 27.3
[2019-12-26] MEDS ORDERED: IBUPROFEN 400 MG TABLET (FP) PO PRN (15:33)
[2019-12-26] MEDS ORDERED: METHOCARBAMOL 500 MG TABLET PO PRN (15:33)
[2019-12-26] MEDS ORDERED: MAG HYDROX/AL HYDROX/SIMETH 30 ML UNIT-DOSE CUP PO PRN (15:33)
[2019-12-26] MEDS ORDERED: ACETAMINOPHEN 325 MG TABLET (FP) PO PRN ×2 (15:33)
[2019-12-26] MEDS ORDERED: ONDANSETRON *ODT* 4 MG TABLET SL PRN (15:33)
[2019-12-26] MEDS ORDERED: BISMUTH SUBSALICYLATE 524 MG/30 ML UD PO PRN (15:33)
[2019-12-26] MEDS ORDERED: chlordiazePOXIDE HCL 25 MG CAPSULE PO PRN (15:33)
[2019-12-26] MEDS ORDERED: MAGNESIUM HYDROX 2400MG/30ML ORAL SUSPENSION 30 ML CUP PO PRN (15:33)
[2019-12-26] MEDS ORDERED: MENTHOL/PHENOL 1 EACH UD MM PRN (15:33)
[2019-12-26] MEDS ORDERED: NICOTINE POLACRILEX 2 MG GUM BUC PRN (15:33)
[2019-12-26] MEDS ORDERED: MAGNESIUM CITRATE 300 ML BOTTLE PO PRN (15:33)
--- NOTE | 2019-12-26 16:10 | PN ---
Teaching Attending Note Name of Resident: Linda Marshall ATTENDING PHYSICIAN STATEMENT I saw and evaluated the patient. I reviewed the resident's note and discussed the case with the resident. I agree with the resident's findings and plan as documented. SUBJECTIVE: OBJECTIVE: ASSESSMENT AND PLAN: Patient is a 54 y/o male with a history of DM, anxiety, depression, and HTN who presents for alcohol detox. patient started drink at age 20. patient drinks 5 24 oz beers a day. Patient denies seizures. Endorses hx of blackouts and needing an eye agriculture specialist. Last used today. Patient also uses 5-6 bags of heroin. Patient uses every day. Patient uses IV or sniffs it. Last used yesterday. Denies hx of overdose. Patient takes 90 mg of methadone daily through [facility]. Patient smokes 7-8 cigarettes a day. - Substance Use History Alcohol Substance amount: 8 beers 24 0z Frequency of use: Daily Substance route: Oral Date of Last Use: 12/26/19 Heroin Substance amount: 3-4 bags Frequency of use: Daily Substance route: Inhalation (ex: sniffing or snorting) Date of Last Use: 12/25/19 Nicotine Substance amount: 20 ciggs Frequency of use: Daily Substance route: Smoking Date of Last Use: 12/26/19 Imp 1. Alcohol withdrawal uncomplicated Plan 1. Librium protocol 2. Methadone maintenance
[2019-12-26 17:25] LABS: HEMOGLOBIN 12.6 GM/dL (11.7-16.9); MCHC 33.1 g/dl (32.0-35.9); MEAN CELL VOLUME 84.6 fl (80-96); MEAN PLT VOLUME 10.1 fl (7.5-11.1); PLATELET COUNT 189 K/MM3 (134-434); RBC 4.49 M/mm3 (4.00-5.60); RDW 14.1 % (11.9-15.9); WHITE BLOOD COUNT 6.3 K/mm3 (4.0-10.0)
[2019-12-26 17:29] LABS: ALBUMIN 2.6 g/dl (3.4-5.0); BILIRUBIN,TOTAL 0.4 mg/dL (0.2-1); BLOOD UREA NITROGEN 9.5 mg/dL (7-18); CALCIUM 8.9 mg/dL (8.5-10.1); CREATININE 0.8 mg/dL (0.55-1.3); POTASSIUM 4.6 mmol/L (3.5-5.1); TOT PROT 7.4 g/dl (6.4-8.2)
[2019-12-26] MEDS: PRENATAL VITAMINS W/ FOLIC ACID TABLET (FP) PO SCH (17:48)
[2019-12-26] MEDS: hydrOXYzine PAMOATE 25 MG CAPSULE (FP) PO SCH ×2 (17:49→22:42)
[2019-12-26] MEDS: chlordiazePOXIDE HCL 25 MG CAPSULE PO SCH ×2 (17:49→22:38)
[2019-12-26] MEDS: NICOTINE 14 MG/24 HOURS TOPICAL PATCH TD SCH (17:50)
[2019-12-26] MEDS ORDERED: INSULIN (NOVOLOG) ASPART 100 UNITS/ML 10ML VIAL SQ ONE (19:14)
[2019-12-26] MEDS: NYSTATIN 100,000 UNIT/GM TOPICAL CREAM 15 GM TUBE TP SCH (20:24)
[2019-12-26] MEDS: INSULIN (LEVEMIR) 100 UNITS/ML UNITS SQ SCH (22:38)
[2019-12-26] MEDS: THIAMINE HCL 100 MG TABLET (FP) PO SCH (22:38)
[2019-12-26] MEDS: Insulin (LOG) Aspart 100 UNITS/ML VIAL SQ SCH (22:41)
[2019-12-26] MEDS: INSULIN SLIDING SCALE (NOVOLOG) 1 VIAL SQ SCH (22:41)
[2019-12-26] MEDS: MELATONIN 5 MG TABLETS PO SCH (22:41)
[2019-12-27] MEDS: NYSTATIN 100,000 UNIT/GM TOPICAL CREAM 15 GM TUBE TP SCH ×4 (03:43→17:07)
[2019-12-27] MEDS: chlordiazePOXIDE HCL 25 MG CAPSULE PO SCH ×4 (05:33→22:02)
[2019-12-27] MEDS: hydrOXYzine PAMOATE 25 MG CAPSULE (FP) PO SCH ×5 (05:33→22:01)
[2019-12-27] MEDS: Insulin (LOG) Aspart 100 UNITS/ML VIAL SQ SCH ×2 (08:01→17:03)
[2019-12-27] MEDS: INSULIN SLIDING SCALE (NOVOLOG) 1 VIAL SQ SCH ×3 (08:03→17:09)
[2019-12-27] MEDS ORDERED: METHADONE 80 MG, METHADONE 10 MG PO ONE (09:30)
[2019-12-27] MEDS ORDERED: METHADONE HCL 40 MG DISPERSABLE TABLET ONE (09:37)
[2019-12-27] MEDS ORDERED: METHADONE HCL 10 MG TABLET ONE (09:37)
[2019-12-27] MEDS ORDERED: METHADONE HCL 10 MG TABLET PO ONE (10:00)
[2019-12-27] MEDS: LISINOPRIL 10 MG TABLET (FP) PO SCH (10:08)
[2019-12-27] MEDS: PRENATAL VITAMINS W/ FOLIC ACID TABLET (FP) PO SCH (10:08)
[2019-12-27] MEDS: NICOTINE 14 MG/24 HOURS TOPICAL PATCH TD SCH (10:09)
--- NOTE | 2019-12-27 12:42 | CONSULT ---
[facility] Psychiatric Consult - Data Date of interview: 12/27/19 Admission source: [facility] Identifying data: Readmission to [facility] at [address] [place] [address] for this 54 y/o male, self-referred for detoxification treatment. GALDINO issues : heroin, cocaine, alcohol, nicotine. Patient is , father of six, domiciled, unemployed and supported on SSI benefits. Substance Abuse History: Discussed with the patient. GALDINO profile as follows : Smoking history: Current every day smoker. Have you smoked in the past 12 months: Yes. Aproximately how many cigarettes per day: 10. Hx Chewing Tobacco Use: No. Initiated information on smoking cessation: No. - Substances abused. Alcohol. Substance route: Oral. Frequency: Daily. Amount used: BEER- 1 SIX PK. Age of first use: 22. Date of last use: 12/26/19. Heroin. Substance route: Inhalation. Frequency: Daily. Amount used: 3 BAGS. Age of first use: 26. Date of last use: 12/25/19 Medical History: Medical profile is remarkable for bronchial asthma, non-insulin dependent diabetes mellitus, chronic lumbar pain and history of treatment for positive PPD. No known allergies. Psychiatric History: History of one psychiatric hospitalization at [facility]. As per records ([facility]), the patient has had more hospitalizations (in [facility] and other facilities in [facility]). He is reportedly diagnosed with MDD (since age 26). Mr Landrum is still seeing a psychiatrist at [facility], in the [place] (managed with duloxetine 20 mg/bid + seroquel 100 mg/hs + zolpidem 10 mg/hs). Patient admits to a history of two suicide attempts (hanging : age 28 + overdose with pills : age 42). Physical/Sexual Abuse/Trauma History: Patient denies. Additional Comment: Urine drug screen results: FEN-Fentanyl, MOP-Opiates, OXY- Oxycodone, MTD-Methadone. Noted. Mental Status Exam - Mental Status Exam Alert and Oriented to: Time, Place, Person Cognitive Function: Good Patient Appearance: Well Groomed Mood: Hopeful Affect: Appropriate, Normal Range Patient Behavior: Fatigued, Appropriate, Cooperative Speech Pattern: Clear, Appropriate Voice Loudness: Normal Thought Process: Intact, Goal Oriented Thought Disorder: Not Present Hallucinations: Denies Suicidal Ideation: Denies Homicidal Ideation: Denies Insight/Judgement: Poor Sleep: Poorly, Difficulty falling asleep Appetite: Good Gait/Station: Normal Psychiatric Findings - Problem List ([place] 1, 2,3) (1) Alcohol dependence with withdrawal, uncomplicated Current Visit: Yes Status: Acute (2) Opioid dependence on agonist therapy Current Visit: Yes Status: Chronic (3) Nicotine dependence Current Visit: Yes Status: Chronic Qualifiers: Nicotine product type: cigarettes Substance use status: in withdrawal Qualified Code(s): F17.213 - Nicotine dependence, cigarettes, with withdrawal (4) History of depression Current Visit: Yes Status: Chronic (5) Insomnia Current Visit: Yes Status: Chronic - Initial Treatment Plan Initial Treatment Plan: Psychoeducation. Sleep hygiene. Detoxification in progress. Resumed at patient's request : duloxetine 20 mg po bid + seroquel 100 mg po hs. Side effecets/benefits discussed with the patient. Consent (verbal) granted to MD. Mejia.
--- NOTE | 2019-12-27 14:03 | PN ---
[facility] CIWA - CIWA Score Nausea/Vomitin-Mild Nausea/No Vomiting Muscle Tremors: 4-Moderate,w/Arms Extend Anxiety: 4-Mod. 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 call [phone] that mr reza is taking metformin and insulin before lunch and dinner insulin 40units at bed time adjusting bgm before lunch before dinner before bed time Objective: 12/27/19 14:22 Vital Signs - 24 hr 12/26/19 12/26/19 12/26/19 16:33 17:22 17:24 Temperature 97.2 F L 97.0 F L 97.2 F L Pulse Rate 86 80 86 Respiratory 12 18 12 Rate Blood Pressure 101/72 102/69 101/72 O2 Sat by Pulse 96 Oximetry (%) 12/26/19 12/27/19 12/27/19 20:57 06:29 08:57 Temperature 97.3 F L 97.4 F L 97.5 F L Pulse Rate 70 66 66 Respiratory 20 18 18 Rate Blood Pressure 104/70 113/74 113/63 O2 Sat by Pulse 95 98 Oximetry (%) 12/27/19 08:58 Temperature 97.5 F L Pulse Rate 66 Respiratory 18 Rate Blood Pressure 113/63 O2 Sat by Pulse Oximetry (%) Laboratory Tests 12/26/19 12/26/19 12/26/19 15:30 15:30 15:30 WBC 6.3 RBC 4.49 Hgb 12.6 Hct 38.0 MCV 84.6 MCH 28.0 MCHC 33.1 RDW 14.1 Plt Count 189 MPV 10.1 Sodium 134 L Potassium 4.6 Chloride 98 Carbon Dioxide 28 Anion Gap 8 BUN 9.5 Creatinine 0.8 Est GFR (CKD-EPI)AfAm 117.38 Est GFR (CKD-EPI)NonAf 101.27 POC Glucometer Random Glucose 466 H* Calcium 8.9 Total Bilirubin 0.4 AST 15 ALT 19 Alkaline Phosphatase 136 H Total Protein 7.4 Albumin 2.6 L Syphilis Serology Non-reactive 12/26/19 12/26/19 12/27/19 17:47 22:36 06:23 WBC RBC Hgb Hct MCV MCH MCHC RDW Plt Count MPV Sodium Potassium Chloride Carbon Dioxide Anion Gap BUN Creatinine Est GFR (CKD-EPI)AfAm Est GFR (CKD-EPI)NonAf POC Glucometer 369 350 317 Random Glucose Calcium Total Bilirubin AST ALT Alkaline Phosphatase Total Protein Albumin Syphilis Serology 12/27/19 14:23 covid pending 12/27/19 14:25 [id number] 13.4 health teaching on risks of eyes kidney neuron damage due to hyperglycemia Assessment: 12/27/19 14:27 alcohol withdrawal uncontrolled insulin dependent diabetes Plan: librium regiment
[2019-12-27 17:08] LABS: EPITHELIAL CELLS 14.7 /hpf
[2019-12-27] MEDS ORDERED: INSULIN SLIDING SCALE (NOVOLOG) 1 VIAL SQ SCH (22:00)
[2019-12-27] MEDS: THIAMINE HCL 100 MG TABLET (FP) PO SCH (22:01)
[2019-12-27] MEDS: QUEtiapine FUMARATE 100 MG TABLET (FP) PO SCH (22:01)
[2019-12-27] MEDS: MELATONIN 5 MG TABLETS PO SCH (22:01)
[2019-12-27] MEDS: INSULIN (LEVEMIR) 100 UNITS/ML UNITS SQ SCH (22:04)
[2019-12-28] MEDS ORDERED: METHADONE HCL 10 MG TABLET ONE (05:07)
[2019-12-28] MEDS ORDERED: METHADONE HCL 40 MG DISPERSABLE TABLET ONE (05:08)
[2019-12-28] MEDS: NYSTATIN 100,000 UNIT/GM TOPICAL CREAM 15 GM TUBE TP SCH ×4 (05:32→19:20)
[2019-12-28] MEDS: hydrOXYzine PAMOATE 25 MG CAPSULE (FP) PO SCH ×5 (05:33→22:17)
[2019-12-28] MEDS: chlordiazePOXIDE HCL 25 MG CAPSULE PO SCH ×4 (05:33→22:17)
[2019-12-28] MEDS: METHADONE 80 MG, METHADONE 10 MG PO SCH (05:33)
[2019-12-28] MEDS ORDERED: METHADONE HCL 10 MG TABLET PO SCH (06:00)
[2019-12-28] MEDS: Insulin (LOG) Aspart 100 UNITS/ML VIAL SQ SCH (07:01)
[2019-12-28] MEDS: INSULIN SLIDING SCALE (NOVOLOG) 1 VIAL SQ SCH (07:01)
[2019-12-28] MEDS: DULoxetine HCL 20 MG CAPSULE.DR PO SCH (10:28)
[2019-12-28] MEDS: PRENATAL VITAMINS W/ FOLIC ACID TABLET (FP) PO SCH (10:28)
[2019-12-28] MEDS: NICOTINE 14 MG/24 HOURS TOPICAL PATCH TD SCH (10:28)
[2019-12-28] MEDS: LISINOPRIL 10 MG TABLET (FP) PO SCH (10:28)
[2019-12-28] MEDS ORDERED: INSULIN SLIDING SCALE (NOVOLOG) 1 VIAL SQ ONE (11:22)
[2019-12-28] MEDS: INSULIN (NOVOLOG) ASPART 100 UNITS/ML 10ML VIAL SQ SCH ×3 (11:23→22:19)
--- NOTE | 2019-12-28 14:41 | PN ---
S CIWA - CIWA Score Nausea/Vomitin-Mild Nausea/No Vomiting Muscle Tremors: 3 Anxiety: 3 Agitation: 2 Paroxysmal Sweats: No Perspiration Orientation: 0-Oriented Tacttile Disturbances: 1-Very Mild Itch/Numbness Auditory Disturbances: 0-None Visual Disturbances: 0-None Headache: 2-Mild CIWA-Ar Total Score: 12 BHS Progress Note (SOAP) Subjective: alert,irritable,anxious,interrupted sleep,tremor,pain in the body and back Objective: 12/28/19 14:42 Vital Signs Temperature 97.8 F 12/28/19 12:50 Pulse Rate 62 12/28/19 12:50 Respiratory Rate 18 12/28/19 12:50 Blood Pressure 98/59 L 12/28/19 12:50 O2 Sat by Pulse Oximetry (%) 98 12/28/19 12:50 Assessment: 12/28/19 14:43 withdrawal symptom Plan: continue detox librium regimen,bgm monitoring achs with insulin sliding scale,metfomin 850 mgs po bid,levemir 40 units hs, hb a1c,eligibility examiner consultation for teaching
[2019-12-28] MEDS: QUEtiapine FUMARATE 100 MG TABLET (FP) PO SCH (22:17)
[2019-12-28] MEDS: THIAMINE HCL 100 MG TABLET (FP) PO SCH (22:17)
[2019-12-28] MEDS: MELATONIN 5 MG TABLETS PO SCH (22:17)
[2019-12-28] MEDS: INSULIN (LEVEMIR) 100 UNITS/ML UNITS SQ SCH (22:21)
[2019-12-29] MEDS ORDERED: chlordiazePOXIDE HCL 10 MG CAPSULE PO PRN
[2019-12-29] MEDS ORDERED: METHADONE HCL 10 MG TABLET ONE (04:00)
[2019-12-29] MEDS ORDERED: METHADONE HCL 40 MG DISPERSABLE TABLET ONE (04:00)
[2019-12-29] MEDS: chlordiazePOXIDE HCL 10 MG CAPSULE PO SCH ×4 (06:14→22:16)
[2019-12-29] MEDS: hydrOXYzine PAMOATE 25 MG CAPSULE (FP) PO SCH ×5 (06:14→22:15)
[2019-12-29] MEDS: METHADONE 80 MG, METHADONE 10 MG PO SCH (06:14)
[2019-12-29] MEDS: NYSTATIN 100,000 UNIT/GM TOPICAL CREAM 15 GM TUBE TP SCH ×5 (06:19→23:30)
[2019-12-29] MEDS: INSULIN (NOVOLOG) ASPART 100 UNITS/ML 10ML VIAL SQ SCH ×4 (07:41→21:26)
[2019-12-29] MEDS ORDERED: INSULIN SLIDING SCALE (NOVOLOG) 1 VIAL SQ ONE ×2 (07:44→11:59)
--- NOTE | 2019-12-29 09:12 | PN ---
S CIWA - CIWA Score Nausea/Vomitin-No Nausea/No Vomiting Muscle Tremors: None Anxiety: 1-Mildly Anxious Agitation: 1-Slight > Activity Paroxysmal Sweats: No Perspiration Orientation: 1-Uncertain about Date Tacttile Disturbances: 0-None Auditory Disturbances: 0-None Visual Disturbances: 0-None Headache: 0-None Present CIWA-Ar Total Score: 3 BHS Progress Note (SOAP) Subjective: No complaints Objective: 12/29/19 09:07 PE Gnl: WDWN, in no distress MS: nl mentation Motor: moves limbs well Coord: nl, has cane at bedside for ambulation Laboratory Tests 12/26/19 12/26/19 12/26/19 15:30 15:30 15:30 WBC 6.3 RBC 4.49 Hgb 12.6 Hct 38.0 MCV 84.6 MCH 28.0 MCHC 33.1 RDW 14.1 Plt Count 189 MPV 10.1 Sodium 134 L Potassium 4.6 Chloride 98 Carbon Dioxide 28 Anion Gap 8 BUN 9.5 Creatinine 0.8 Est GFR (CKD-EPI)AfAm 117.38 Est GFR (CKD-EPI)NonAf 101.27 POC Glucometer Random Glucose 466 H* Calcium 8.9 Total Bilirubin 0.4 AST 15 ALT 19 Alkaline Phosphatase 136 H Total Protein 7.4 Albumin 2.6 L Urine Color Urine Appearance Urine pH Urine Protein Urine Glucose (UA) Urine Ketones Urine Blood Urine Nitrite Urine Bilirubin Urine Urobilinogen Ur Leukocyte Esterase Urine RBC Urine WBC Ur Transition Epith Cell Urine Bacteria Syphilis Serology Non-reactive COVID-19 (ELI) 12/26/19 12/26/19 12/26/19 16:50 17:47 22:36 WBC RBC Hgb Hct MCV MCH MCHC RDW Plt Count MPV Sodium Potassium Chloride Carbon Dioxide Anion Gap BUN Creatinine Est GFR (CKD-EPI)AfAm Est GFR (CKD-EPI)NonAf POC Glucometer 369 350 Random Glucose Calcium Total Bilirubin AST ALT Alkaline Phosphatase Total Protein Albumin Urine Color Urine Appearance Urine pH Urine Protein Urine Glucose (UA) Urine Ketones Urine Blood Urine Nitrite Urine Bilirubin Urine Urobilinogen Ur Leukocyte Esterase Urine RBC Urine WBC Ur Transition Epith Cell Urine Bacteria Syphilis Serology COVID-19 (ELI) Not detected 12/27/19 12/27/19 12/27/19 06:23 13:19 16:53 WBC RBC Hgb Hct MCV MCH MCHC RDW Plt Count MPV Sodium Potassium Chloride Carbon Dioxide Anion Gap BUN Creatinine Est GFR (CKD-EPI)AfAm Est GFR (CKD-EPI)NonAf POC Glucometer 317 436 Random Glucose Calcium Total Bilirubin AST ALT Alkaline Phosphatase Total Protein Albumin Urine Color Yellow Urine Appearance Hazy Urine pH 5.0 Urine Protein Negative Urine Glucose (UA) 1000 mg/dl Urine Ketones Negative Urine Blood Negative Urine Nitrite Positive Urine Bilirubin Negative Urine Urobilinogen 0.2 Ur Leukocyte Esterase Negative Urine RBC 18.5 Urine WBC 39.9 Ur Transition Epith Cell 14.7 Urine Bacteria 50633.4 Syphilis Serology COVID-19 (ELI) 12/27/19 12/28/19 12/28/19 21:02 05:37 11:18 WBC RBC Hgb Hct MCV MCH MCHC RDW Plt Count MPV Sodium Potassium Chloride Carbon Dioxide Anion Gap BUN Creatinine Est GFR (CKD-EPI)AfAm Est GFR (CKD-EPI)NonAf POC Glucometer [phone] Random Glucose Calcium Total Bilirubin AST ALT Alkaline Phosphatase Total Protein Albumin Urine Color Urine Appearance Urine pH Urine Protein Urine Glucose (UA) Urine Ketones Urine Blood Urine Nitrite Urine Bilirubin Urine Urobilinogen Ur Leukocyte Esterase Urine RBC Urine WBC Ur Transition Epith Cell Urine Bacteria Syphilis Serology COVID-19 (ELI) 12/28/19 12/28/19 12/29/19 16:38 21:32 06:18 WBC RBC Hgb Hct MCV MCH MCHC RDW Plt Count MPV Sodium Potassium Chloride Carbon Dioxide Anion Gap BUN Creatinine Est GFR (CKD-EPI)AfAm Est GFR (CKD-EPI)NonAf POC Glucometer 348 485 340 Random Glucose Calcium Total Bilirubin AST ALT Alkaline Phosphatase Total Protein Albumin Urine Color Urine Appearance Urine pH Urine Protein Urine Glucose (UA) Urine Ketones Urine Blood Urine Nitrite Urine Bilirubin Urine Urobilinogen Ur Leukocyte Esterase Urine RBC Urine WBC Ur Transition Epith Cell Urine Bacteria Syphilis Serology COVID-19 (ELI) Home Medication List Medication Instructions Recorded Confirmed Type Duloxetine HCl [Cymbalta -] 20 mg PO BID 06/01/19 12/26/19 History Insulin (LOG) Aspart [NovoLOG -] 15 units SQ BID 06/01/19 12/26/19 History Insulin Glargine,Hum.rec.anlog 40 units SQ HS 06/01/19 12/26/19 History [Lantus Solostar PEN -] Quetiapine Fumarate [Seroquel -] 100 mg PO HS 06/01/19 12/26/19 History Zolpidem Tartrate [Ambien] 10 mg PO HS 06/01/19 12/26/19 History metFORMIN HCL [Glucophage -] 850 mg PO BIDAC 11/28/19 12/26/19 History Lisinopril 10 mg PO DAILY 12/26/19 12/26/19 History Active Medications Generic Name Dose Route Start Last Admin Trade Name Freq PRN Reason Stop Dose Admin Acetaminophen 650 mg 12/26/19 15:33 Tylenol - PO Q6H PRN PAIN LEVEL 4 - 6 Acetaminophen 650 mg 12/26/19 15:33 Tylenol - PO Q6H PRN FEVER Al Hydroxide/Mg Hydroxide 30 ml 12/26/19 15:33 Mylanta Oral Suspension - PO Q6H PRN DYSPEPSIA Bismuth Subsalicylate 524 mg 12/26/19 15:33 Pepto-Bismol - PO Q1H PRN DIARRHEA Chlordiazepoxide HCl 10 mg 12/29/19 05:00 12/29/19 06:14 Librium - PO 12/29/19 23:01 10 mg [id number] CORBY Administration Chlordiazepoxide HCl 10 mg 12/30/19 05:00 Librium - PO 12/30/19 17:01 Q12H CORBY Chlordiazepoxide HCl 10 mg 12/29/19 00:00 Librium - PO 12/30/19 00:00 Q4H PRN WITHDRAWAL(CONT SUBST) Chlordiazepoxide HCl 10 mg 12/31/19 05:00 Librium - PO 12/31/19 05:01 ONCE@0500 ONE Duloxetine HCl 20 mg 12/28/19 10:00 12/28/19 10:28 Cymbalta - PO 20 mg DAILY CORBY Administration Eucalyptus/Menthol/Phenol/Sorbitol 1 each 12/26/19 15:33 Cepastat Lozenge - MM 01/01/20 15:33 Q4H PRN SORE THROAT Hydroxyzine Pamoate 25 mg 12/26/19 18:00 12/29/19 06:14 Vistaril - PO 01/01/20 15:33 25 mg Q4HWA CORBY Administration Ibuprofen 400 mg 12/26/19 15:33 Motrin - PO Q6H PRN PAIN LEVEL 1 - 3 Insulin Aspart 0 units 12/28/19 11:00 12/29/19 07:41 Novolog Vial SQ 8 units ACHS CORBY Administration Protocol Insulin Detemir 40 units 12/26/19 22:00 12/28/19 22:21 Levemir Vial SQ 40 units HS CORBY Administration Lisinopril 10 mg 12/27/19 10:00 12/28/19 10:28 Prinivil PO Not Given DAILY CORBY Magnesium Citrate 300 ml 12/26/19 15:33 Citroma - PO Q48H PRN CONSTIPATION Magnesium Hydroxide 30 ml 12/26/19 15:33 Milk Of Magnesia - PO PRN PRN CONSTIPATION Melatonin 5 mg 12/26/19 22:00 12/28/19 22:17 Melatonin PO 5 mg HS CORBY Administration Metformin HCl 850 mg 12/28/19 16:30 12/29/19 06:14 Glucophage - PO 850 mg BIDAC CORBY Administration Methadone HCl 80 mg/ Methadone 90 mg 12/28/19 06:00 12/29/19 06:14 HCl 10 mg PO 01/03/20 06:01 90 mg DAILY@0600 CORBY Administration Methocarbamol 500 mg 12/26/19 15:33 12/27/19 10:08 Robaxin - PO 01/01/20 15:33 500 mg Q6H PRN Administration MUSCLE SPASMS Nicotine 14 mg 12/26/19 17:00 12/28/19 10:28 Nicoderm Patch - TD 14 mg DAILY CORBY Administration Nicotine Polacrilex 2 mg 12/26/19 15:33 Nicorette Gum - BUC Q2H PRN NICOTINE REPLACEMENT RX Nystatin 1 applic 12/26/19 18:00 12/29/19 06:20 Mycostatin Cream - TP 1 applic Q6HPO CORBY Administration Ondansetron HCl 4 mg 12/26/19 15:33 Zofran Odt - SL Q8H PRN Nausea/Vomiting Multivit/Folic Acid/Iron 1 tab 12/26/19 15:45 12/28/19 10:28 Vitamins (Sjr) - PO 1 tab DAILY CORBY Administration Quetiapine Fumarate 100 mg 12/27/19 22:00 12/28/19 22:17 Seroquel - PO 100 mg HS CORBY Administration Thiamine HCl 100 mg 12/26/19 22:00 12/28/19 22:17 Vitamin B1 - PO 100 mg HS CORBY Administration Vital Signs Temperature 97.5 F L 12/29/19 07:05 Pulse Rate 64 12/29/19 07:05 Respiratory Rate 20 12/29/19 07:05 Blood Pressure 94/65 12/29/19 07:05 O2 Sat by Pulse Oximetry (%) 99 12/29/19 07:05 Assessment: 12/29/19 09:10 1. Alcohol withdrawal uncomplicated 2. DM Plan: 1. Librium detox protocol, projected completion on 12/30 2. Pt on Metformin, Levemir, sliding scale with elevated glucose, HgA1c drawn today, will continue to monitor
[2019-12-29] MEDS: NICOTINE 14 MG/24 HOURS TOPICAL PATCH TD SCH (10:49)
[2019-12-29] MEDS: DULoxetine HCL 20 MG CAPSULE.DR PO SCH (10:49)
[2019-12-29] MEDS: PRENATAL VITAMINS W/ FOLIC ACID TABLET (FP) PO SCH (10:49)
[2019-12-29] MEDS: LISINOPRIL 10 MG TABLET (FP) PO SCH (10:50)
[2019-12-29] MEDS: QUEtiapine FUMARATE 100 MG TABLET (FP) PO SCH (22:15)
[2019-12-29] MEDS: THIAMINE HCL 100 MG TABLET (FP) PO SCH (22:15)
[2019-12-29] MEDS: MELATONIN 5 MG TABLETS PO SCH (22:15)
[2019-12-29] MEDS: INSULIN (LEVEMIR) 100 UNITS/ML UNITS SQ SCH (22:17)
[2019-12-29 22:56] VITALS: TEMP 97.1
[2019-12-30] MEDS ORDERED: METHADONE HCL 10 MG TABLET ONE (04:37)
[2019-12-30] MEDS ORDERED: METHADONE HCL 40 MG DISPERSABLE TABLET ONE (04:37)
[2019-12-30] MEDS ORDERED: chlordiazePOXIDE HCL 10 MG CAPSULE PO SCH (05:00)
[2019-12-30] MEDS: hydrOXYzine PAMOATE 25 MG CAPSULE (FP) PO SCH (05:52)
[2019-12-30] MEDS: METHADONE 80 MG, METHADONE 10 MG PO SCH (05:52)
[2019-12-30] MEDS: INSULIN (NOVOLOG) ASPART 100 UNITS/ML 10ML VIAL SQ SCH (07:09)
[2019-12-30] MEDS: NYSTATIN 100,000 UNIT/GM TOPICAL CREAM 15 GM TUBE TP SCH (07:09)
[2019-12-30] MEDS ORDERED: INSULIN SLIDING SCALE (NOVOLOG) 1 VIAL SQ ONE (08:38)
[2019-12-30 09:25] VITALS: BP 100/64; PULSE 89
--- NOTE | 2019-12-30 11:51 | DS ---
[facility] Detox Discharge Summary Admission Date: 12/26/19 Discharge Date: 12/30/19 - History Present History: Alcohol Dependence, Opioid Dependence, MMTP Additional Comments: Pt is medically cleared and discharged today. Pt completed the detox protocol. Pt is encouraged to follow-up with an outpatient CD program and also to follow- up with his pmd which he verbalized understanding. Pt reports that he has enough refills on his home meds, no prescriptions given at this time. Pt is AOX3, in no acute respiratory distress, Full ROM, and ambulatory. Pertinent Past History: h/o DM, HTN, alcohol, and heroin use disorder. - Physical Exam Results Vital Signs: Vital Signs Temperature 97.1 F L 12/30/19 08:52 Pulse Rate 89 12/30/19 08:52 Respiratory Rate 18 12/30/19 08:52 Blood Pressure 100/64 12/30/19 08:52 O2 Sat by Pulse Oximetry (%) 97 12/30/19 08:19 Vital Signs 12/30/19 12/30/19 08:19 08:52 Temperature 97.1 F L 97.1 F L Pulse Rate 60 89 Respiratory 16 18 Rate Blood Pressure 102/68 100/64 O2 Sat by Pulse 97 Oximetry (%) Laboratory Last Values WBC 6.3 K/mm3 (4.0-10.0) 12/26/19 15:30 RBC 4.49 M/mm3 (4.00-5.60) 12/26/19 15:30 Hgb 12.6 GM/dL (11.7-16.9) 12/26/19 15:30 Hct 38.0 % (35.4-49) 12/26/19 15:30 MCV 84.6 fl (80-96) 12/26/19 15:30 MCH 28.0 pg (25.7-33.7) 12/26/19 15:30 MCHC 33.1 g/dl (32.0-35.9) 12/26/19 15:30 RDW 14.1 % (11.9-15.9) 12/26/19 15:30 Plt Count 189 K/MM3 (134-434) 12/26/19 15:30 MPV 10.1 fl (7.5-11.1) 12/26/19 15:30 Sodium 134 mmol/L (136-145) L 12/26/19 15:30 Potassium 4.6 mmol/L (3.5-5.1) 12/26/19 15:30 Chloride 98 mmol/L (98-107) 12/26/19 15:30 Carbon Dioxide 28 mmol/L (21-32) 12/26/19 15:30 Anion Gap 8 MMOL/L (8-16) 12/26/19 15:30 BUN 9.5 mg/dL (7-18) 12/26/19 15:30 Creatinine 0.8 mg/dL (0.55-1.3) 12/26/19 15:30 Est GFR (CKD-EPI)AfAm 117.38 12/26/19 15:30 Est GFR (CKD-EPI)NonAf 101.27 12/26/19 15:30 POC Glucometer 266 UNITS (80-120) 12/30/19 05:51 Random Glucose 466 mg/dL (74-106) H* 12/26/19 15:30 Hemoglobin A1c % 11.9 % (4.2-6.3) H 12/29/19 08:47 Calcium 8.9 mg/dL (8.5-10.1) 12/26/19 15:30 Total Bilirubin 0.4 mg/dL (0.2-1) 12/26/19 15:30 AST 15 U/L (15-37) 12/26/19 15:30 ALT 19 U/L (13-61) 12/26/19 15:30 Alkaline Phosphatase 136 U/L (45-117) H 12/26/19 15:30 Total Protein 7.4 g/dl (6.4-8.2) 12/26/19 15:30 Albumin 2.6 g/dl (3.4-5.0) L 12/26/19 15:30 Urine Color Yellow 12/27/19 13:19 Urine Appearance Hazy 12/27/19 13:19 Urine pH 5.0 (4.5-8) 12/27/19 13:19 Urine Protein Negative (NEGATIVE) 12/27/19 13:19 Urine Glucose (UA) 1000 mg/dl (NEGATIVE) 12/27/19 13:19 Urine Ketones Negative (NEGATIVE) 12/27/19 13:19 Urine Blood Negative (NEGATIVE) 12/27/19 13:19 Urine Nitrite Positive (NEGATIVE) 12/27/19 13:19 Urine Bilirubin Negative (NEGATIVE) 12/27/19 13:19 Urine Urobilinogen 0.2 (0.2-1.0) 12/27/19 13:19 Ur Leukocyte Esterase Negative (NEGATIVE) 12/27/19 13:19 Urine RBC 18.5 /hpf (0-4) 12/27/19 13:19 Urine WBC 39.9 (NEGATIVE) 12/27/19 13:19 Ur Transition Epith Cell 14.7 /hpf 12/27/19 13:19 Urine Bacteria 95206.4 /hpf (NEGATIVE) 12/27/19 13:19 Syphilis Serology Non-reactive (NONREACTIVE) 12/26/19 15:30 COVID-19 (ELI) Not detected (Not Detected) 12/26/19 16:50 Labs noted. Pertinent Admission Physical Exam Findings: withdrawal symptoms. - Treatment Hospital Course: Detox Protocol Followed, Detoxed Safely, Responded well, Discharged Condition Good - Medication Discharge Medications: Ambulatory Orders Duloxetine HCl [Cymbalta -] 20 mg PO BID 06/01/19 Insulin (LOG) Aspart [NovoLOG -] 15 units SQ BID 06/01/19 Insulin Glargine,Hum.rec.anlog [Lantus Solostar PEN -] 40 units SQ HS 06/01/19 Quetiapine Fumarate [Seroquel -] 100 mg PO HS 06/01/19 Zolpidem Tartrate [Ambien] 10 mg PO HS 06/01/19 metFORMIN HCL [Glucophage -] 850 mg PO BIDAC 11/28/19 Lisinopril 10 mg PO DAILY 12/26/19 - Diagnosis (1) Alcohol dependence with withdrawal, uncomplicated Status: Acute (2) Diabetes mellitus Status: Chronic Qualifiers: Diabetes mellitus type: type 2 Diabetes mellitus snf insulin use: unspecified snf insulin use status Diabetes mellitus complication status: without complication Qualified Code(s): E11.9 - Type 2 diabetes me llitus without complications (3) Opioid dependence on agonist therapy Status: Chronic (4) Opioid use disorder Status: Chronic (5) Alcohol use disorder Status: Chronic - AMA Did Patient Leave Against Medical Advice: No
[2019-12-31] MEDS ORDERED: chlordiazePOXIDE HCL 10 MG CAPSULE PO ONE (05:00)
== END 2019-12-30 10:16 | disposition home or self-care (01) | DRG 773 ==
LOC: YASAS 13:20 → Y3N 16:33
PROVIDERS: ADMIT Allergy & Immunology; ATTEND Allergy & Immunology
PROC: HZ2ZZZZ Detoxification Services for Substance Abuse Treatment (ICD-10-PCS; principal; 2019-12-26)
DX: F10.230 Alcohol dependence with withdrawal, uncomplicated (principal); F11.20 Opioid dependence, uncomplicated; F17.210 Nicotine dependence, cigarettes, uncomplicated; F41.9 Anxiety disorder, unspecified; F32.9 Major depressive disorder, single episode, unspecified; I10 Essential (primary) hypertension; J45.909 Unspecified asthma, uncomplicated; E11.9 Type 2 diabetes mellitus without complications; Z79.4 Long term (current) use of insulin; G47.00 Insomnia, unspecified; M54.5 Low back pain; G89.29 Other chronic pain; R76.11 Nonspecific reaction to tuberculin skin test without active tuberculosis
CPT/HCPCS: 36415; 80053; 81003; 81015; 82962; 83036; 85027; 86780; U0003

== ENCOUNTER 2020-02-29 09:47 | Inpatient (IN) | payer OTHER ==
[2020-02-29 11:05] VITALS: BMI 27.8
[2020-02-29] MEDS ORDERED: ONDANSETRON *ODT* 4 MG TABLET SL PRN (11:58)
[2020-02-29] MEDS ORDERED: MAG HYDROX/AL HYDROX/SIMETH 30 ML UNIT-DOSE CUP PO PRN (11:58)
[2020-02-29] MEDS ORDERED: MAGNESIUM HYDROX 2400MG/30ML ORAL SUSPENSION 30 ML CUP PO PRN (11:58)
[2020-02-29] MEDS ORDERED: NICOTINE POLACRILEX 2 MG GUM BUC PRN (11:58)
[2020-02-29] MEDS ORDERED: ACETAMINOPHEN 325 MG TABLET (FP) PO PRN ×2 (11:58)
[2020-02-29] MEDS ORDERED: MAGNESIUM CITRATE 300 ML BOTTLE PO PRN (11:58)
[2020-02-29] MEDS ORDERED: IBUPROFEN 400 MG TABLET (FP) PO PRN (11:58)
[2020-02-29] MEDS ORDERED: chlordiazePOXIDE HCL 25 MG CAPSULE PO PRN (11:58)
[2020-02-29] MEDS ORDERED: BISMUTH SUBSALICYLATE 262 MG/15 ML BTL PO PRN (11:58)
[2020-02-29] MEDS ORDERED: MENTHOL/PHENOL 1 EACH UD MM PRN (11:58)
[2020-02-29] MEDS ORDERED: METHOCARBAMOL 500 MG TABLET PO PRN (11:58)
[2020-02-29] MEDS ORDERED: INSULIN (NOVOLOG) ASPART 100 UNITS/ML 10ML VIAL SQ ONE (12:00)
[2020-02-29] MEDS: hydrOXYzine PAMOATE 25 MG CAPSULE (FP) PO SCH ×3 (13:05→22:02)
[2020-02-29] MEDS: LISINOPRIL 10 MG TABLET PO SCH (13:05)
[2020-02-29] MEDS: NICOTINE 14 MG/24 HOURS TOPICAL PATCH TD SCH (13:07)
[2020-02-29 13:25] LABS: HEMATOCRIT 41.7 % (35.4-49); MCH 28.1 pg (25.7-33.7); MCHC 33.5 g/dl (32.0-35.9); MEAN PLT VOLUME 9.6 fl (7.5-11.1); PLATELET COUNT 162 K/MM3 (134-434); RBC 4.96 M/mm3 (4.00-5.60); RDW 15.3 % (11.9-15.9); WHITE BLOOD COUNT 6.9 K/mm3 (4.0-10.0)
[2020-02-29 13:26] LABS: POTASSIUM 4.2 mmol/L (3.5-5.1)
[2020-02-29 13:37] LABS: ALBUMIN 3.3 g/dl (3.4-5.0); BLOOD UREA NITROGEN 11.3 mg/dL (7-18); CALCIUM 8.7 mg/dL (8.5-10.1)
[2020-02-29 13:41] LABS: CREATININE 0.9 mg/dL (0.55-1.3)
[2020-02-29 13:42] LABS: BILIRUBIN,TOTAL 0.7 mg/dL (0.2-1); TOT PROT 7.9 g/dl (6.4-8.2)
[2020-02-29 14:22] LABS: HIV INTERPRETATION NEGATIVE (NEGATIVE)
[2020-02-29] MEDS ORDERED: metFORMIN HCL 500 MG TABLET (FP) PO SCH (16:30)
[2020-02-29] MEDS: INSULIN SLIDING SCALE (NOVOLOG) 1 VIAL SQ SCH ×2 (16:50→21:11)
[2020-02-29] MEDS: chlordiazePOXIDE HCL 25 MG CAPSULE PO SCH ×2 (17:29→22:01)
[2020-02-29] MEDS: Insulin (LOG) Aspart 100 UNITS/ML VIAL SQ SCH (17:32)
[2020-02-29] MEDS ORDERED: INSULIN (LEVEMIR) 100 UNITS/ML UNITS SQ ONE (22:00)
[2020-02-29] MEDS: DULoxetine HCL 20 MG CAPSULE.DR PO SCH (22:01)
[2020-02-29] MEDS: QUEtiapine FUMARATE 100 MG TABLET (FP) PO SCH (22:02)
[2020-02-29] MEDS: MELATONIN 5 MG TABLETS PO SCH (22:02)
[2020-02-29] MEDS: THIAMINE HCL 100 MG TABLET (FP) PO SCH (22:02)
[2020-03-01] MEDS: chlordiazePOXIDE HCL 25 MG CAPSULE PO SCH ×4 (05:59→22:09)
[2020-03-01] MEDS: hydrOXYzine PAMOATE 25 MG CAPSULE (FP) PO SCH ×5 (06:00→22:09)
[2020-03-01] MEDS: INSULIN SLIDING SCALE (NOVOLOG) 1 VIAL SQ SCH ×4 (06:39→22:04)
[2020-03-01] MEDS: Insulin (LOG) Aspart 100 UNITS/ML VIAL SQ SCH ×2 (06:40→17:26)
[2020-03-01] MEDS ORDERED: METHADONE HCL 10 MG TABLET PO ONE (08:48)
[2020-03-01] MEDS ORDERED: METHADONE 80 MG, METHADONE 10 MG PO ONE (09:15)
[2020-03-01] MEDS ORDERED: METHADONE HCL 40 MG DISPERSABLE TABLET ONE (09:27)
[2020-03-01] MEDS ORDERED: METHADONE HCL 10 MG TABLET ONE (09:27)
[2020-03-01] MEDS ORDERED: PRENATAL VITAMINS W/ FOLIC ACID TABLET (FP) PO SCH (10:00)
[2020-03-01] MEDS: LISINOPRIL 10 MG TABLET PO SCH (10:02)
[2020-03-01] MEDS: NICOTINE 14 MG/24 HOURS TOPICAL PATCH TD SCH (10:02)
[2020-03-01] MEDS: DULoxetine HCL 20 MG CAPSULE.DR PO SCH ×2 (10:27→22:10)
[2020-03-01] MEDS ORDERED: INSULIN (LEVEMIR) 100 UNITS/ML UNITS SQ SCH (22:00)
[2020-03-01] MEDS: THIAMINE HCL 100 MG TABLET (FP) PO SCH (22:09)
[2020-03-01] MEDS: MELATONIN 5 MG TABLETS PO SCH (22:09)
[2020-03-01] MEDS: QUEtiapine FUMARATE 100 MG TABLET (FP) PO SCH (22:09)
[2020-03-02] MEDS ORDERED: METHADONE HCL 10 MG TABLET ONE (04:08)
[2020-03-02] MEDS ORDERED: METHADONE HCL 40 MG DISPERSABLE TABLET ONE (04:08)
[2020-03-02] MEDS ORDERED: chlordiazePOXIDE HCL 25 MG CAPSULE PO SCH (05:00)
[2020-03-02] MEDS ORDERED: INSULIN SLIDING SCALE (NOVOLOG) 1 VIAL SQ ONE (05:23)
[2020-03-02] MEDS: hydrOXYzine PAMOATE 25 MG CAPSULE (FP) PO SCH (05:25)
[2020-03-02] MEDS ORDERED: METHADONE HCL 10 MG TABLET PO SCH (06:00)
[2020-03-02] MEDS ORDERED: METHADONE 80 MG, METHADONE 10 MG PO SCH (06:00)
[2020-03-02] MEDS: INSULIN SLIDING SCALE (NOVOLOG) 1 VIAL SQ SCH (07:08)
[2020-03-02] MEDS: Insulin (LOG) Aspart 100 UNITS/ML VIAL SQ SCH (07:09)
[2020-03-02 09:49] VITALS: BP 110/67; PULSE 86; TEMP 97.1
[2020-03-03] MEDS ORDERED: chlordiazePOXIDE HCL 10 MG CAPSULE PO PRN
[2020-03-03] MEDS ORDERED: chlordiazePOXIDE HCL 10 MG CAPSULE PO SCH (05:00)
[2020-03-04] MEDS ORDERED: chlordiazePOXIDE HCL 10 MG CAPSULE PO SCH (05:00)
[2020-03-05] MEDS ORDERED: chlordiazePOXIDE HCL 10 MG CAPSULE PO ONE (05:00)
== END 2020-03-02 09:44 | disposition left against medical advice (07) | DRG 770 ==
LOC: YASAS 09:47 → Y3N 11:41
PROVIDERS: ADMIT Allergy & Immunology; ATTEND Allergy & Immunology
PROC: HZ2ZZZZ Detoxification Services for Substance Abuse Treatment (ICD-10-PCS; principal; 2020-02-29)
DX: F10.230 Alcohol dependence with withdrawal, uncomplicated (principal); F11.20 Opioid dependence, uncomplicated; F17.213 Nicotine dependence, cigarettes, with withdrawal; F32.9 Major depressive disorder, single episode, unspecified; I10 Essential (primary) hypertension; E11.65 Type 2 diabetes mellitus with hyperglycemia; Z79.4 Long term (current) use of insulin; G62.9 Polyneuropathy, unspecified; J45.909 Unspecified asthma, uncomplicated; M54.5 Low back pain; G89.29 Other chronic pain; R76.11 Nonspecific reaction to tuberculin skin test without active tuberculosis; Z91.14 Patient's other noncompliance with medication regimen; Z98.890 Other specified postprocedural states
CPT/HCPCS: 36415; 80053; 82962; 85027; 86780; 87389; C9803; U0003

== ENCOUNTER 2020-05-04 09:40 | Inpatient (IN) | payer OTHER ==
[2020-05-04] MEDS ORDERED: MENTHOL/PHENOL 1 EACH UD MM PRN (10:51)
[2020-05-04] MEDS ORDERED: MAGNESIUM CITRATE 300 ML BOTTLE PO PRN (10:51)
[2020-05-04] MEDS ORDERED: NICOTINE POLACRILEX 2 MG GUM BUC PRN (10:51)
[2020-05-04] MEDS ORDERED: BISMUTH SUBSALICYLATE 524 MG/30 ML UD PO PRN (10:51)
[2020-05-04] MEDS ORDERED: MAGNESIUM HYDROX 2400MG/30ML ORAL SUSPENSION 30 ML CUP PO PRN (10:51)
[2020-05-04] MEDS ORDERED: chlordiazePOXIDE HCL 25 MG CAPSULE PO PRN (10:51)
[2020-05-04] MEDS ORDERED: MAG HYDROX/AL HYDROX/SIMETH 30 ML UNIT-DOSE CUP PO PRN (10:51)
[2020-05-04] MEDS ORDERED: METHOCARBAMOL 500 MG TABLET PO PRN (10:51)
[2020-05-04] MEDS ORDERED: ACETAMINOPHEN 325 MG TABLET (FP) PO PRN ×2 (10:51)
[2020-05-04] MEDS ORDERED: chlordiazePOXIDE HCL 25 MG CAPSULE PO ONE (10:51)
[2020-05-04] MEDS ORDERED: ONDANSETRON *ODT* 4 MG TABLET SL PRN (10:51)
[2020-05-04] MEDS ORDERED: IBUPROFEN 400 MG TABLET (FP) PO PRN (10:51)
[2020-05-04] MEDS ORDERED: ONDANSETRON *ODT* 4 MG TABLET ONE (10:55)
[2020-05-04 10:58] VITALS: BMI 27.8
[2020-05-04] MEDS ORDERED: DULoxetine HCL 20 MG CAPSULE.DR PO ONE (12:00)
[2020-05-04] MEDS: TRIMETHOBENZAMIDE HCL 200MG/2ML INJ IM PRN (12:31)
[2020-05-04] MEDS: hydrOXYzine PAMOATE 25 MG CAPSULE (FP) PO SCH ×3 (14:16→22:33)
[2020-05-04] MEDS: LIDOCAINE 5% TOPICAL PATCH TP SCH (14:16)
[2020-05-04] MEDS ORDERED: INSULIN SLIDING SCALE (NOVOLOG) 1 VIAL SQ SCH (16:30)
[2020-05-04] MEDS: chlordiazePOXIDE HCL 25 MG CAPSULE PO SCH ×2 (18:12→22:57)
[2020-05-04] MEDS: metFORMIN HCL 500 MG TABLET (FP) PO SCH (18:12)
[2020-05-04] MEDS: INSULIN SLIDING SCALE (NOVOLOG) 1 VIAL SQ SCH ×2 (18:16→22:51)
[2020-05-04] MEDS ORDERED: QUEtiapine FUMARATE 100 MG TABLET (FP) PO ONE (22:00)
[2020-05-04] MEDS: INSULIN (LEVEMIR) 100 UNITS/ML UNITS SQ SCH (22:31)
[2020-05-04] MEDS: MELATONIN 5 MG TABLETS PO SCH (22:32)
[2020-05-04] MEDS: LIDOCAINE PATCH REMOVAL MC SCH (22:32)
[2020-05-04] MEDS: Insulin (LOG) Aspart 100 UNITS/ML VIAL SQ SCH (22:33)
[2020-05-04] MEDS: THIAMINE HCL 100 MG TABLET (FP) PO SCH (22:56)
[2020-05-05] MEDS: TRIMETHOBENZAMIDE HCL 200MG/2ML INJ IM PRN (02:08)
[2020-05-05] MEDS: chlordiazePOXIDE HCL 25 MG CAPSULE PO SCH ×4 (06:46→23:03)
[2020-05-05] MEDS: hydrOXYzine PAMOATE 25 MG CAPSULE (FP) PO SCH (06:47)
[2020-05-05] MEDS: INSULIN SLIDING SCALE (NOVOLOG) 1 VIAL SQ SCH ×4 (06:50→23:04)
[2020-05-05] MEDS: metFORMIN HCL 500 MG TABLET (FP) PO SCH ×2 (06:51→17:41)
[2020-05-05] MEDS ORDERED: METHADONE HCL 10 MG TABLET PO ONE (08:59)
[2020-05-05] MEDS ORDERED: hydrOXYzine PAMOATE 25 MG CAPSULE (FP) PO PRN (09:04)
[2020-05-05] MEDS ORDERED: METHADONE 80 MG, METHADONE 10 MG PO ONE (09:15)
[2020-05-05] MEDS ORDERED: METHADONE HCL 10 MG TABLET ONE (09:34)
[2020-05-05] MEDS ORDERED: METHADONE HCL 40 MG DISPERSABLE TABLET ONE (09:34)
[2020-05-05] MEDS ORDERED: LISINOPRIL 10 MG TABLET PO SCH (10:00)
[2020-05-05] MEDS ORDERED: PRENATAL VITAMINS W/ FOLIC ACID TABLET (FP) PO SCH (10:00)
[2020-05-05] MEDS: LIDOCAINE 5% TOPICAL PATCH TP SCH (10:24)
[2020-05-05] MEDS: Insulin (LOG) Aspart 100 UNITS/ML VIAL SQ SCH ×2 (10:24→23:03)
[2020-05-05 10:41] LABS: POTASSIUM 4.1 mmol/L (3.5-5.1)
[2020-05-05 10:48] LABS: HEMATOCRIT 44.5 % (35.4-49); HEMOGLOBIN 15.2 GM/dL (11.7-16.9); MCH 28.7 pg (25.7-33.7); MCHC 34.1 g/dl (32.0-35.9); MEAN CELL VOLUME 84.4 fl (80-96); MEAN PLT VOLUME 10.3 fl (7.5-11.1); PLATELET COUNT 167 K/MM3 (134-434); RBC 5.27 M/mm3 (4.00-5.60); WHITE BLOOD COUNT 7.2 K/mm3 (4.0-10.0)
[2020-05-05 10:52] LABS: ALBUMIN 3.6 g/dl (3.4-5.0); CALCIUM 9.1 mg/dL (8.5-10.1)
[2020-05-05 10:53] LABS: BILIRUBIN,TOTAL 0.5 mg/dL (0.2-1); BLOOD UREA NITROGEN 12.7 mg/dL (7-18); TOT PROT 7.9 g/dl (6.4-8.2)
[2020-05-05 12:01] LABS: HIV INTERPRETATION NEGATIVE (NEGATIVE)
[2020-05-05 13:59] VITALS: BP 87/64; PULSE 119; TEMP 97.7
[2020-05-05] MEDS ORDERED: MASKS NR ONE (15:07)
[2020-05-05] MEDS: LIDOCAINE PATCH REMOVAL MC SCH (23:03)
[2020-05-05] MEDS: MELATONIN 5 MG TABLETS PO SCH (23:03)
[2020-05-05] MEDS: INSULIN (LEVEMIR) 100 UNITS/ML UNITS SQ SCH (23:03)
[2020-05-05] MEDS: THIAMINE HCL 100 MG TABLET (FP) PO SCH (23:04)
[2020-05-06] MEDS ORDERED: chlordiazePOXIDE HCL 25 MG CAPSULE PO SCH (05:00)
[2020-05-07] MEDS ORDERED: chlordiazePOXIDE HCL 10 MG CAPSULE PO PRN
[2020-05-07] MEDS ORDERED: chlordiazePOXIDE HCL 10 MG CAPSULE PO SCH (05:00)
[2020-05-08] MEDS ORDERED: chlordiazePOXIDE HCL 10 MG CAPSULE PO SCH (05:00)
[2020-05-09] MEDS ORDERED: chlordiazePOXIDE HCL 10 MG CAPSULE PO ONE (05:00)
== END 2020-05-05 23:50 | disposition short-term general hospital (02) | DRG 773 ==
LOC: YASAS 09:40 → Y3N 10:53
PROVIDERS: ADMIT Allergy & Immunology; ATTEND Allergy & Immunology
PROC: HZ2ZZZZ Detoxification Services for Substance Abuse Treatment (ICD-10-PCS; principal; 2020-05-04)
DX: F10.230 Alcohol dependence with withdrawal, uncomplicated (principal); F11.20 Opioid dependence, uncomplicated; F13.20 Sedative, hypnotic or anxiolytic dependence, uncomplicated; F17.210 Nicotine dependence, cigarettes, uncomplicated; F32.9 Major depressive disorder, single episode, unspecified; E11.65 Type 2 diabetes mellitus with hyperglycemia; Z79.4 Long term (current) use of insulin; I10 Essential (primary) hypertension; G62.9 Polyneuropathy, unspecified; R00.0 Tachycardia, unspecified; M54.5 Low back pain; G89.29 Other chronic pain; R76.11 Nonspecific reaction to tuberculin skin test without active tuberculosis; Z91.5 Personal history of self-harm
CPT/HCPCS: 36415; 80053; 82962; 85027; 86780; 87389; C9803; Q0162; U0003

== ENCOUNTER 2020-05-05 15:22 | Inpatient (IN) | payer OTHER ==
[2020-05-05] MEDS ORDERED: SODIUM CHLORIDE 2,722 ML IV ONE (16:04)
[2020-05-05 16:25] LABS: BASO % 0.1 % (0-2.0); HEMATOCRIT 51.9 % (35.4-49); HEMOGLOBIN 17.2 GM/dL (11.7-16.9); LYMPH % 5.3 % (8-40); MCH 28.1 pg (25.7-33.7); MCHC 33.2 g/dl (32.0-35.9); MEAN CELL VOLUME 84.6 fl (80-96); MEAN PLT VOLUME 11.1 fl (7.5-11.1); MONO % 6.2 % (3.8-10.2); NEUT % 88.4 % (42.8-82.8); PLATELET COUNT 88 K/MM3 (134-434); RBC 6.13 M/mm3 (4.00-5.60); RDW 15.1 % (11.9-15.9); WHITE BLOOD COUNT 25.2 K/mm3 (4.0-10.0)
[2020-05-05 16:27] LABS: VENOUS BASE EXCESS -1.6 mmol/L (-2-2); VENOUS O2 SATURATION 32.4 % (70-80); VENOUS PCO2 55.6 mmHg (38-52); VENOUS PH 7.294 (7.310-7.410)
[2020-05-05 16:33] LABS: INR 1.45 (0.83-1.09); PROTHROMBIN TIME (PATIENT) 17.4 SEC (9.7-13.0)
[2020-05-05 16:36] LABS: ACTIVATED PTT 39.3 SECONDS (25.2-36.5)
[2020-05-05 16:40] LABS: CALCIUM 10.2 mg/dL (8.5-10.1)
[2020-05-05 16:41] LABS: ALBUMIN 3.6 g/dl (3.4-5.0)
[2020-05-05 16:44] LABS: CREATININE 2.9 mg/dL (0.55-1.3)
[2020-05-05 16:45] LABS: BILIRUBIN,TOTAL 0.8 mg/dL (0.2-1)
[2020-05-05 16:55] LABS: BLOOD UREA NITROGEN 40.9 mg/dL (7-18)
[2020-05-05 16:56] LABS: POTASSIUM 2.8 mmol/L (3.5-5.1)
[2020-05-05] MEDS ORDERED: ACETAMINOPHEN 1000 MG/100 ML VIAL (NON FORMULARY) IVPB ONE (17:31)
[2020-05-05] MEDS ORDERED: POTASSIUM CHLORIDE TABS 20 MEQ TABLET.ER (FP) PO ONE ×2 (17:32→17:33)
[2020-05-05] MEDS ORDERED: ACETAMINOPHEN INJECTION 100 ML IVPB ONE (17:32)
[2020-05-05 17:39] LABS: ANISOCYTOSIS 1+; MACROCYTOSIS 0; PLATELET ESTIMATE DECREASED
[2020-05-05 20:30] LABS: POTASSIUM 4.4 mmol/L (3.5-5.1)
[2020-05-05 20:31] LABS: BLOOD UREA NITROGEN 45.7 mg/dL (7-18); CALCIUM 7.8 mg/dL (8.5-10.1)
[2020-05-05 20:35] LABS: CREATININE 2.6 mg/dL (0.55-1.3)
[2020-05-05] MEDS ORDERED: CEFTRIAXONE 1 GM in DEXTROSE 5%-WATER - 100 ML IVPB ONE (20:57)
[2020-05-05] MEDS ORDERED: SODIUM CHLORIDE 0.9% 500 ML INFUS.BAG IV ONE ×2 (20:59→23:19)
[2020-05-05] MEDS ORDERED: CEFTRIAXONE 1 GM/50 ML BAG ONE (21:05)
[2020-05-05 21:06] LABS: BASO % 0.2 % (0-2.0); EOS % 0.1 % (0-4.5); HEMATOCRIT 49.7 % (35.4-49); HEMOGLOBIN 16.4 GM/dL (11.7-16.9); LYMPH % 10.3 % (8-40); MCH 28.2 pg (25.7-33.7); MEAN CELL VOLUME 85.4 fl (80-96); MEAN PLT VOLUME 11.3 fl (7.5-11.1); MONO % 3.5 % (3.8-10.2); NEUT % 85.9 % (42.8-82.8); PLATELET COUNT 47 K/MM3 (134-434); RBC 5.82 M/mm3 (4.00-5.60); RDW 15.4 % (11.9-15.9); WHITE BLOOD COUNT 4.3 K/mm3 (4.0-10.0)
[2020-05-05] MEDS ORDERED: IBUPROFEN 800 MG/8 ML IJ IVPB ONE ×2 (21:34→22:30)
[2020-05-05] MEDS ORDERED: ACETAMINOPHEN 650 MG SUPP.RECT ONE (21:35)
[2020-05-05] MEDS ORDERED: MIDAZOLAM HCL 2 MG/2 ML SINGLE DOSE VIAL ONE ×3 (21:46→23:48)
[2020-05-05] MEDS: MIDAZOLAM HCL 2 MG/2 ML SINGLE DOSE VIAL IVPUSH ONE (22:05)
[2020-05-05] MEDS ORDERED: PIPERACILLIN/TAZOB 3.375 GM 3.375 GM in DEXTROSE 5%-WATER - 50 ML IVPB ONE (22:14)
[2020-05-05] MEDS ORDERED: VANCOMYCIN 1 GM in D5W (PRE-DOCKED) 1,000 MG/250 ML IVPB ONE (22:14)
[2020-05-05] MEDS ORDERED: VANCOMYCIN 1 GRAM (PRE-DOCKED) 1,000 MG/250 ML BAG IVPB ONE (22:15)
[2020-05-05] MEDS ORDERED: PIPERACILLIN/TAZOB 3.375 GM 3.375 GM/50 ML BAG IVPB ONE (22:15)
[2020-05-05 22:22] LABS: ANISOCYTOSIS 1+; MACROCYTOSIS 0; PLATELET ESTIMATE DECREASED
[2020-05-05] MEDS ORDERED: MIDAZOLAM HCL 2 MG/2 ML SINGLE DOSE VIAL IVPUSH ONE ×2 (22:31→23:21)
[2020-05-05 22:34] LABS: ARTERIAL BLD GAS O2 SATURATION 99.2 mmHg (95-98); ARTERIAL BLOOD GAS BASE EXCESS -7.4 mmol/L (-2-2); ARTERIAL BLOOD GAS PO2 174.3 mmHg (80-100); ARTERIAL BLOOD GAS pH 7.416 (7.350-7.450)
[2020-05-05 22:35] LABS: ALLENS TEST POSITIVE
[2020-05-05] MEDS ORDERED: ACETAMINOPHEN 650 MG SUPP.RECT PR ONE (23:19)
[2020-05-05] MEDS ORDERED: MAGNESIUM SULF 50% (8.12 MEQ/2 ML-1 GM VIAL) IVPB ONE (23:58)
[2020-05-06] MEDS ORDERED: MAGNESIUM SULFATE IN WATER 2 GM/50 ML IVPB IVPB ONE (00:01)
[2020-05-06] MEDS ORDERED: NOREPINEPHRINE BITARTRATE 4 MG/4 ML ML IV ONE (00:01)
[2020-05-06 00:04] LABS: EPI CELLS 25 /uL (0-25.1); HYALINE CASTS 27 /uL (0-3.1); URINE APPEARANCE TURBID; URINE BILIRUBIN NEGATIVE (NEGATIVE); URINE COLOR DK YELLOW; URINE GLUCOSE (UA) TRACE (NEGATIVE); URINE KETONE TRACE (NEGATIVE); URINE LEUK ESTERASE 1+ (NEGATIVE); URINE NITRITE NEGATIVE (NEGATIVE); URINE PROTEIN 3+ (NEGATIVE); URINE RBC 57 /uL (0-23.9); URINE WBC 673 /uL (0-25.8)
[2020-05-06] MEDS: NOREPINEPHRINE D5W PREMIX 16,000 MCG/500 ML BAG IVPB SCH ×2 (00:10→17:21)
[2020-05-06] MEDS: MIDAZOLAM HCL 2 MG/2 ML SINGLE DOSE VIAL IVPUSH ONE (00:20)
[2020-05-06] MEDS ORDERED: TRIPLE LUMEN FLUSH 4 ML ML IVPUSH PRN (00:22)
[2020-05-06] MEDS ORDERED: ACETAMINOPHEN 325 MG TABLET (FP) PO PRN (00:22)
[2020-05-06 00:29] LABS: URINE BACTERIA 900.9 /uL (0-1359)
[2020-05-06] MEDS ORDERED: SODIUM CHLORIDE 1,000 ML IV SCH (00:30)
[2020-05-06] MEDS ORDERED: HYDROCORTISONE SOD SUCCINATE 100 MG/2 ML VIAL IVPUSH ONE (00:36)
[2020-05-06] MEDS ORDERED: HYDROCORTISONE SOD SUCCINATE 100 MG/2 ML VIAL ONE (00:38)
[2020-05-06] MEDS ORDERED: MIDAZOLAM HCL 2 MG/2 ML SINGLE DOSE VIAL IVPUSH PRN (00:42)
[2020-05-06] MEDS ORDERED: TRIMETHOBENZAMIDE HCL 300 MG CAPSULE PO PRN (00:47)
[2020-05-06] MEDS ORDERED: MIDAZOLAM HCL 2 MG/2 ML SINGLE DOSE VIAL IVPUSH ONE ×4 (01:00→07:53)
[2020-05-06] MEDS ORDERED: MIDAZOLAM HCL 2 MG/2 ML SINGLE DOSE VIAL ONE (01:09)
[2020-05-06] MEDS ORDERED: ALBUTEROL SO4 HFA INHALER IH PRN (01:57)
[2020-05-06] MEDS ORDERED: MAGNESIUM SULF 50% (8.12 MEQ/2 ML-1 GM VIAL) IVPB ONE (02:14)
[2020-05-06 02:27] LABS: HEMATOCRIT 36.9 % (35.4-49); HEMOGLOBIN 12.3 GM/dL (11.7-16.9); MCH 28.6 pg (25.7-33.7); MCHC 33.4 g/dl (32.0-35.9); MEAN CELL VOLUME 85.6 fl (80-96); RBC 4.31 M/mm3 (4.00-5.60); RDW 15.2 % (11.9-15.9); WHITE BLOOD COUNT 8.9 K/mm3 (4.0-10.0)
[2020-05-06 02:32] LABS: PLATELET COUNT 19 K/MM3 (134-434)
[2020-05-06] MEDS ORDERED: VASOPRESSIN 20 UNITS/ML VIAL IV ONE (02:38)
[2020-05-06 02:53] LABS: CHLORIDE 110 mmol/L (98-107); SODIUM 144 mmol/L (136-145)
[2020-05-06 02:55] LABS: ALBUMIN 1.9 g/dl (3.4-5.0); BLOOD UREA NITROGEN 49.3 mg/dL (7-18); CO2 18 mmol/L (21-32); GLUCOSE,RANDOM 219 mg/dL (74-106); MAGNESIUM 1.7 mg/dL (1.8-2.4)
[2020-05-06 02:58] LABS: CREATININE 2.8 mg/dL (0.55-1.3); PHOSPHOROUS 2.1 mg/dL (2.5-4.9); SGOT/AST 21 U/L (15-37); SGPT/ALT 13 U/L (13-61)
[2020-05-06 03:00] LABS: BILIRUBIN,TOTAL 0.7 mg/dL (0.2-1); LDH 278 U/L (87-246)
[2020-05-06 03:00] LABS: COCAINE, UR NEGATIVE ng/ml (CUTOFF=300); PHENCYCLIDINE,URINE NEGATIVE ng/ml (CUTOFF=25); URINE AMPHETAMINES NEGATIVE ng/ml (CUTOFF=500); URINE BARBITURATES NEGATIVE ng/ml (CUTOFF=200)
[2020-05-06 03:01] LABS: ALK PHOS 133 U/L (45-117)
[2020-05-06 03:02] LABS: METHADONE, UR POSITIVE ng/ml (CUTOFF=300); OPIATES, URI POSITIVE ng/ml (CUTOFF=300); URINE BENZODIAZEPINES POSITIVE ng/ml (CUTOFF=200)
[2020-05-06] MEDS: SODIUM CHLORIDE 0.9% 1000 ML INFUS.BAG IV ONE ×2 (03:10→03:23)
[2020-05-06] MEDS: VASOPRESSIN 40 UNITS in SODIUM CHLORIDE 98 ML IVPB SCH (03:15)
[2020-05-06 03:18] LABS: ANION GAP 16 MMOL/L (8-16); TOT PROT 4.8 g/dl (6.4-8.2)
[2020-05-06 03:20] LABS: POTASSIUM 2.7 mmol/L (3.5-5.1)
[2020-05-06] MEDS: KCL 10 MEQ IVPB 10 MEQ/100 ML INFUS.BAG IVPB SCH ×3 (03:30→06:30)
[2020-05-06] MEDS ORDERED: POTASSIUM PHOSPHATE 30 MM in SODIUM CHLORIDE 250 ML IVPB ONE (05:30)
[2020-05-06] MEDS ORDERED: HEPARIN NA (PORCINE) 5,000 UNITS/ML 1ML VIAL SQ SCH (06:00)
[2020-05-06] MEDS ORDERED: PIPERACILLIN/TAZOB 2.25 GM 2.25 GM in DEXTROSE 5%-WATER - 50 ML IVPB SCH ×2 (06:15→10:15)
[2020-05-06] MEDS ORDERED: PIPERACILLIN/TAZOB 4.5 GM 4.5 GM in DEXTROSE 5%-WATER 100 ML IVPB SCH (06:15)
[2020-05-06] MEDS ORDERED: SODIUM CHLORIDE 1,000 ML IV STA (06:29)
[2020-05-06] MEDS ORDERED: PIPERACILLIN/TAZOBACTAM 2.25 GM VIAL IVPB ONE ×2 (06:31→10:05)
[2020-05-06] MEDS ORDERED: DEXTROSE 5%-WATER - 50 ML IVPB ONE ×2 (06:31→10:05)
[2020-05-06] MEDS: INSULIN SLIDING SCALE (NOVOLOG) 1 VIAL SQ SCH ×4 (06:33→21:32)
[2020-05-06 07:48] LABS: POTASSIUM 3.5 mmol/L (3.5-5.1)
[2020-05-06 07:50] LABS: BLOOD UREA NITROGEN 53.1 mg/dL (7-18)
[2020-05-06 07:51] LABS: ALBUMIN 1.8 g/dl (3.4-5.0); MAGNESIUM 2.5 mg/dL (1.8-2.4)
[2020-05-06 07:55] LABS: PHOSPHOROUS 3.4 mg/dL (2.5-4.9)
[2020-05-06 07:56] LABS: BILIRUBIN,TOTAL 0.5 mg/dL (0.2-1); TOT PROT 4.9 g/dl (6.4-8.2)
[2020-05-06 08:16] LABS: BASO % 0.2 % (0-2.0); EOS % 0.2 % (0-4.5); HEMATOCRIT 36.6 % (35.4-49); HEMOGLOBIN 12.1 GM/dL (11.7-16.9); LYMPH % 5.5 % (8-40); MCH 28.4 pg (25.7-33.7); MEAN PLT VOLUME 10.4 fl (7.5-11.1); MONO % 2.9 % (3.8-10.2); NEUT % 91.2 % (42.8-82.8); RBC 4.26 M/mm3 (4.00-5.60); RDW 15.2 % (11.9-15.9); WHITE BLOOD COUNT 11.6 K/mm3 (4.0-10.0)
[2020-05-06 08:22] LABS: PLATELET COUNT 14 K/MM3 (134-434)
[2020-05-06 08:33] LABS: CALCIUM 6.6 mg/dL (8.5-10.1)
[2020-05-06 09:17] LABS: INR 1.91 (0.83-1.09)
[2020-05-06 09:20] LABS: ACTIVATED PTT 37.8 SECONDS (25.2-36.5)
[2020-05-06] MEDS ORDERED: CEFTRIAXONE 1 GM in DEXTROSE 5%-WATER - 50 ML IVPB SCH (10:00)
[2020-05-06 10:03] LABS: HIV INTERPRETATION NEGATIVE (NEGATIVE)
[2020-05-06] MEDS: morphine SULFATE 4 MG/ML VIAL IVPUSH PRN (10:09)
[2020-05-06] MEDS: SODIUM CHLORIDE 1,000 ML IV SCH (10:14)
[2020-05-06] MEDS ORDERED: THIAMINE HCL 200 MG/2 ML VIAL IVPB ONE (10:22)
[2020-05-06] MEDS ORDERED: PHYTONADIONE 10 MG/1 ML AMP IVPB ONE (10:49)
[2020-05-06] MEDS ORDERED: METHADONE HCL 10 MG TABLET PO ONE (11:00)
[2020-05-06] MEDS: HYDROCORTISONE SOD SUCCINATE 100 MG/2 ML VIAL IVPB SCH ×2 (11:30→18:20)
[2020-05-06] MEDS ORDERED: METHADONE HCL 40 MG DISPERSABLE TABLET ONE (12:12)
[2020-05-06] MEDS ORDERED: METHADONE HCL 5 MG TABLET ONE (12:12)
[2020-05-06] MEDS ORDERED: METHADONE 40 MG, METHADONE 5 MG PO ONE (12:15)
[2020-05-06] MEDS ORDERED: chlordiazePOXIDE HCL 25 MG CAPSULE PO PRN (12:59)
[2020-05-06 13:03] LABS: ANISOCYTOSIS 0; MACROCYTOSIS 0; PLATELET ESTIMATE DECREASED
[2020-05-06] MEDS: chlordiazePOXIDE HCL 25 MG CAPSULE PO SCH ×4 (13:45→22:48)
[2020-05-06] MEDS ORDERED: LORazepam 2 MG/ML SDV VIAL IVPUSH ONE (14:00)
[2020-05-06] MEDS: MUPIROCIN 2% TOPICAL OINTMENT FOR DECOLONIZATION NS SCH ×2 (14:23→21:32)
[2020-05-06] MEDS ORDERED: MEROPENEM 1 GM VIAL (RESTRICTED TO ID) IVPB ONE (15:22)
[2020-05-06] MEDS ORDERED: DEXTROSE 5%-WATER 100 ML IVPB ONE (15:22)
[2020-05-06] MEDS: MEROPENEM 1 GM in DEXTROSE 5%-WATER 100 ML IVPB SCH (15:25)
[2020-05-06 17:31] LABS: POTASSIUM 4.7 mmol/L (3.5-5.1)
[2020-05-06 17:35] LABS: BLOOD UREA NITROGEN 52.7 mg/dL (7-18)
[2020-05-06 17:38] LABS: CREATININE 2.7 mg/dL (0.55-1.3)
[2020-05-06 19:55] LABS: CALCIUM 6.7 mg/dL (8.5-10.1)
[2020-05-06] MEDS: CHLORHEXIDINE GLUCONATE 4% CLEANSER FOR DECOLONIZATION TP SCH (21:32)
[2020-05-06] MEDS: THIAMINE HCL 100 MG TABLET (FP) PO SCH (21:33)
[2020-05-06] MEDS: LORazepam 2 MG/ML SDV VIAL IVPUSH PRN (21:39)
[2020-05-07] MEDS: NOREPINEPHRINE D5W PREMIX 16,000 MCG/500 ML BAG IVPB SCH ×2 (01:25→23:50)
[2020-05-07] MEDS ORDERED: MEROPENEM 1 GM VIAL (RESTRICTED TO ID) IVPB ONE ×3 (01:28→22:26)
[2020-05-07] MEDS ORDERED: DEXTROSE 5%-WATER 100 ML IVPB ONE ×3 (01:29→22:26)
[2020-05-07] MEDS: VASOPRESSIN 40 UNITS in SODIUM CHLORIDE 98 ML IVPB SCH (02:35)
[2020-05-07] MEDS: HYDROCORTISONE SOD SUCCINATE 100 MG/2 ML VIAL IVPB SCH ×3 (02:35→18:23)
[2020-05-07] MEDS: MEROPENEM 1 GM in DEXTROSE 5%-WATER 100 ML IVPB SCH ×2 (02:35→16:06)
[2020-05-07] MEDS: LORazepam 2 MG/ML SDV VIAL IVPUSH PRN (05:38)
[2020-05-07] MEDS: chlordiazePOXIDE HCL 25 MG CAPSULE PO SCH ×4 (05:39→22:27)
[2020-05-07] MEDS: INSULIN SLIDING SCALE (NOVOLOG) 1 VIAL SQ SCH ×4 (06:14→22:28)
[2020-05-07 06:53] LABS: HEMATOCRIT 36.4 % (35.4-49); HEMOGLOBIN 12.2 GM/dL (11.7-16.9); MCH 28.3 pg (25.7-33.7); MCHC 33.4 g/dl (32.0-35.9); MEAN CELL VOLUME 84.6 fl (80-96); MEAN PLT VOLUME 10.7 fl (7.5-11.1); RDW 16.2 % (11.9-15.9); WHITE BLOOD COUNT 23.6 K/mm3 (4.0-10.0)
[2020-05-07 07:03] LABS: INR 1.77 (0.83-1.09); PROTHROMBIN TIME (PATIENT) 21.4 SEC (9.7-13.0)
[2020-05-07 07:05] LABS: ACTIVATED PTT 39.3 SECONDS (25.2-36.5)
[2020-05-07 07:10] LABS: PLATELET COUNT 9 K/MM3 (134-434)
[2020-05-07 07:38] LABS: ALLENS TEST POSITIVE; ARTERIAL BLD GAS O2 SATURATION 89.5 mmHg (95-98); ARTERIAL BLOOD GAS BASE EXCESS -8.3 mmol/L (-2-2); ARTERIAL BLOOD GAS PO2 57.2 mmHg (80-100); ARTERIAL BLOOD GAS pH 7.367 (7.350-7.450)
[2020-05-07 08:47] LABS: ALBUMIN 1.8 g/dl (3.4-5.0); BLOOD UREA NITROGEN 58.7 mg/dL (7-18); CREATININE 2.5 mg/dL (0.55-1.3); MAGNESIUM 2.7 mg/dL (1.8-2.4); POTASSIUM 4.5 mmol/L (3.5-5.1); TOT PROT 5.2 g/dl (6.4-8.2)
[2020-05-07 08:49] LABS: CALCIUM 6.4 mg/dL (8.5-10.1)
[2020-05-07] MEDS: morphine SULFATE 4 MG/ML VIAL IVPUSH PRN (08:53)
[2020-05-07] MEDS ORDERED: LORazepam 2 MG/ML SDV VIAL IVPB ONE (09:28)
[2020-05-07] MEDS: THIAMINE HCL 100 MG TABLET (FP) PO SCH ×2 (09:32→22:28)
[2020-05-07] MEDS: MUPIROCIN 2% TOPICAL OINTMENT FOR DECOLONIZATION NS SCH ×2 (09:32→22:27)
[2020-05-07] MEDS ORDERED: RAPID SEQUENCE INTUBATION KIT NR ONE (11:49)
[2020-05-07] MEDS ORDERED: PROPOFOL 1,000,000 MCG/100 ML VIAL ONE (11:50)
[2020-05-07] MEDS ORDERED: MIDAZOLAM 100 MG in SODIUM CHLORIDE 100 ML IVPB SCH (12:00)
[2020-05-07] MEDS: PROPOFOL 1,000,000 MCG/100 ML VIAL IVPB SCH (12:28)
[2020-05-07] MEDS: SODIUM CHLORIDE 1,000 ML IV SCH (12:29)
[2020-05-07] MEDS ORDERED: ETOMIDATE 20 MG/10 ML AMPUL IVPUSH ONE (12:32)
[2020-05-07] MEDS ORDERED: SUCCINYLCHOLINE CHLORIDE 200 MG/10 ML VIAL IVPUSH ONE (12:32)
[2020-05-07] MEDS ORDERED: MIDAZOLAM 100 MG/100 ML MG IVPB ONE (12:42)
[2020-05-07] MEDS ORDERED: ACETAMINOPHEN INJECTION 100 ML IVPB ONE (14:26)
[2020-05-07 16:59] LABS: ALLENS TEST POSITIVE; ARTERIAL BLD GAS O2 SATURATION 98.3 mmHg (95-98); ARTERIAL BLOOD GAS BASE EXCESS -6.4 mmol/L (-2-2); ARTERIAL BLOOD GAS PO2 141.4 mmHg (80-100)
[2020-05-07 17:00] LABS: VENT MODE A/C
[2020-05-07 17:01] LABS: VENT RATE 20
[2020-05-07] MEDS ORDERED: ACETAMINOPHEN 1000 MG/100 ML VIAL (NON FORMULARY) IVPB PRN (17:34)
[2020-05-07 18:41] LABS: HEMATOCRIT 34.6 % (35.4-49); HEMOGLOBIN 11.2 GM/dL (11.7-16.9); MCH 27.5 pg (25.7-33.7); MCHC 32.5 g/dl (32.0-35.9); MEAN CELL VOLUME 84.9 fl (80-96); RBC 4.08 M/mm3 (4.00-5.60); RDW 16.1 % (11.9-15.9); WHITE BLOOD COUNT 22.5 K/mm3 (4.0-10.0)
[2020-05-07 18:54] LABS: PLATELET COUNT 35 K/MM3 (134-434)
[2020-05-07 22:04] LABS: ARTERIAL BLD GAS O2 SATURATION 99.5 mmHg (95-98); ARTERIAL BLOOD GAS BASE EXCESS -0.9 mmol/L (-2-2); ARTERIAL BLOOD GAS PO2 238.5 mmHg (80-100); ARTERIAL BLOOD GAS pH 7.369 (7.350-7.450)
[2020-05-07 22:09] LABS: ALLENS TEST POSITIVE
[2020-05-07 22:10] LABS: VENT MODE A/C; VENT RATE 24
[2020-05-07] MEDS: CHLORHEXIDINE GLUCONATE 4% CLEANSER FOR DECOLONIZATION TP SCH (22:28)
[2020-05-07 23:13] LABS: BASO % 0.2 % (0-2.0); EOS % 0.8 % (0-4.5); HEMATOCRIT 32.6 % (35.4-49); HEMOGLOBIN 10.7 GM/dL (11.7-16.9); LYMPH % 3.3 % (8-40); MCH 27.7 pg (25.7-33.7); MCHC 32.8 g/dl (32.0-35.9); MEAN CELL VOLUME 84.5 fl (80-96); MEAN PLT VOLUME 8.6 fl (7.5-11.1); MONO % 5.7 % (3.8-10.2); RBC 3.86 M/mm3 (4.00-5.60); RDW 16.2 % (11.9-15.9); WHITE BLOOD COUNT 20.7 K/mm3 (4.0-10.0)
[2020-05-07 23:25] LABS: PLATELET COUNT 34 K/MM3 (134-434)
[2020-05-08] MEDS: HYDROCORTISONE SOD SUCCINATE 100 MG/2 ML VIAL IVPB SCH ×3 (01:16→18:27)
[2020-05-08 01:41] LABS: PLATELET ESTIMATE DECREASED; SMUDGE CELLS FEW
[2020-05-08] MEDS: MEROPENEM 1 GM in DEXTROSE 5%-WATER 100 ML IVPB SCH ×2 (02:11→15:43)
[2020-05-08] MEDS: chlordiazePOXIDE HCL 10 MG CAPSULE PO SCH ×4 (05:40→23:00)
[2020-05-08] MEDS: VASOPRESSIN 40 UNITS in SODIUM CHLORIDE 98 ML IVPB SCH ×2 (05:41)
[2020-05-08] MEDS: INSULIN SLIDING SCALE (NOVOLOG) 1 VIAL SQ SCH ×4 (06:17→21:29)
[2020-05-08 07:15] LABS: HEMATOCRIT 33.6 % (35.4-49); HEMOGLOBIN 11.3 GM/dL (11.7-16.9); MCH 28.3 pg (25.7-33.7); MCHC 33.5 g/dl (32.0-35.9); MEAN CELL VOLUME 84.3 fl (80-96); MEAN PLT VOLUME 9.9 fl (7.5-11.1); RBC 3.98 M/mm3 (4.00-5.60); RDW 16.3 % (11.9-15.9); WHITE BLOOD COUNT 20.5 K/mm3 (4.0-10.0)
[2020-05-08 07:37] LABS: PLATELET COUNT 32 K/MM3 (134-434)
[2020-05-08 07:38] LABS: POTASSIUM 4.5 mmol/L (3.5-5.1)
[2020-05-08 07:51] LABS: ALBUMIN 1.9 g/dl (3.4-5.0); BLOOD UREA NITROGEN 71.2 mg/dL (7-18); MAGNESIUM 3.2 mg/dL (1.8-2.4)
[2020-05-08 07:54] LABS: CREATININE 2.4 mg/dL (0.55-1.3); PHOSPHOROUS 2.9 mg/dL (2.5-4.9)
[2020-05-08 07:55] LABS: BILIRUBIN,TOTAL 1.3 mg/dL (0.2-1); TOT PROT 5.4 g/dl (6.4-8.2)
[2020-05-08] MEDS ORDERED: MIDAZOLAM 100 MG/100 ML MG IVPB ONE (08:50)
[2020-05-08] MEDS: MUPIROCIN 2% TOPICAL OINTMENT FOR DECOLONIZATION NS SCH ×2 (09:43→21:29)
[2020-05-08] MEDS: SODIUM CHLORIDE 1,000 ML IV SCH (09:43)
[2020-05-08] MEDS: THIAMINE HCL 100 MG TABLET (FP) PO SCH (09:44)
[2020-05-08] MEDS ORDERED: PANTOPRAZOLE SODIUM 40 MG VIAL IVPUSH SCH (10:15)
[2020-05-08] MEDS ORDERED: DEXTROSE 5%-WATER - 1,000 ML IV SCH (12:30)
[2020-05-08] MEDS ORDERED: MEROPENEM 1 GM VIAL (RESTRICTED TO ID) IVPB ONE ×2 (15:16→21:24)
[2020-05-08] MEDS ORDERED: DEXTROSE 5%-WATER 100 ML IVPB ONE ×2 (15:16→21:25)
[2020-05-08] MEDS ORDERED: FOLIC ACID INJECTION - 1 MG, THIAMINE HCL 100 MG, MULTIVIT INJECTION ADULT 10 ML in SOD... IVPB ONE (15:20)
[2020-05-08] MEDS: PROPOFOL 1,000,000 MCG/100 ML VIAL IVPB SCH (15:47)
[2020-05-08] MEDS: THIAMINE HCL 200 MG/2 ML VIAL IVPB SCH (16:26)
[2020-05-08] MEDS: ACETAMINOPHEN 1000 MG/100 ML VIAL (NON FORMULARY) IVPB PRN ×2 (18:26→18:28)
[2020-05-08] MEDS: CHLORHEXIDINE GLUCONATE 4% CLEANSER FOR DECOLONIZATION TP SCH (21:29)
[2020-05-08] MEDS: PANTOPRAZOLE SODIUM 40 MG VIAL IVPUSH SCH (21:30)
[2020-05-08] MEDS ORDERED: INSULIN (LEVEMIR) 100 UNITS/ML UNITS SQ SCH (22:00)
[2020-05-08 23:24] LABS: HEMATOCRIT 32.5 % (35.4-49); HEMOGLOBIN 10.7 GM/dL (11.7-16.9); MCH 27.9 pg (25.7-33.7); MCHC 32.8 g/dl (32.0-35.9); MEAN PLT VOLUME 10.5 fl (7.5-11.1); PLATELET COUNT 40 K/MM3 (134-434); RBC 3.83 M/mm3 (4.00-5.60); RDW 16.2 % (11.9-15.9); WHITE BLOOD COUNT 17.4 K/mm3 (4.0-10.0)
[2020-05-08] MEDS ORDERED: NOREPINEPHRINE BITARTRATE 4 MG/4 ML ML IV ONE (23:29)
[2020-05-09] MEDS: NOREPINEPHRINE D5W PREMIX 16,000 MCG/500 ML BAG IVPB SCH
[2020-05-09] MEDS ORDERED: chlordiazePOXIDE HCL 10 MG CAPSULE PO PRN
[2020-05-09] MEDS: VASOPRESSIN 40 UNITS in SODIUM CHLORIDE 98 ML IVPB SCH (02:39)
[2020-05-09] MEDS: MEROPENEM 1 GM in DEXTROSE 5%-WATER 100 ML IVPB SCH ×2 (02:41→15:59)
[2020-05-09] MEDS: HYDROCORTISONE SOD SUCCINATE 100 MG/2 ML VIAL IVPB SCH ×3 (02:41→17:55)
[2020-05-09] MEDS: chlordiazePOXIDE HCL 10 MG CAPSULE PO SCH ×2 (06:09→16:18)
[2020-05-09] MEDS: INSULIN SLIDING SCALE (NOVOLOG) 1 VIAL SQ SCH ×4 (06:11→21:43)
[2020-05-09 07:11] LABS: BASO % 0.2 % (0-2.0); HEMATOCRIT 32.8 % (35.4-49); HEMOGLOBIN 10.9 GM/dL (11.7-16.9); LYMPH % 4.3 % (8-40); MCH 28.1 pg (25.7-33.7); MCHC 33.3 g/dl (32.0-35.9); MEAN CELL VOLUME 84.5 fl (80-96); MEAN PLT VOLUME 10.4 fl (7.5-11.1); MONO % 7.5 % (3.8-10.2); RBC 3.88 M/mm3 (4.00-5.60); RDW 16.1 % (11.9-15.9); WHITE BLOOD COUNT 17.8 K/mm3 (4.0-10.0)
[2020-05-09 07:17] LABS: INR 1.18 (0.83-1.09); PROTHROMBIN TIME (PATIENT) 14.4 SEC (9.7-13.0)
[2020-05-09 07:18] LABS: ACTIVATED PTT 25.9 SECONDS (25.2-36.5)
[2020-05-09 07:25] LABS: POTASSIUM 3.5 mmol/L (3.5-5.1)
[2020-05-09 07:32] LABS: ALBUMIN 1.9 g/dl (3.4-5.0); BLOOD UREA NITROGEN 67.3 mg/dL (7-18); CALCIUM 7.4 mg/dL (8.5-10.1)
[2020-05-09 07:35] LABS: CREATININE 1.8 mg/dL (0.55-1.3); PHOSPHOROUS 2.7 mg/dL (2.5-4.9)
[2020-05-09 07:36] LABS: BILIRUBIN,TOTAL 1.5 mg/dL (0.2-1); TOT PROT 5.5 g/dl (6.4-8.2)
[2020-05-09] MEDS: LORazepam 2 MG/ML SDV VIAL IVPUSH PRN (08:00)
[2020-05-09] MEDS ORDERED: MIDAZOLAM 100 MG/100 ML MG IVPB ONE ×2 (08:07→13:56)
[2020-05-09] MEDS: MIDAZOLAM IN 0.9 % SOD.CHLORID 100 MG/100 ML PLAST..BAG IVPB SCH ×2 (08:10→14:10)
[2020-05-09 08:35] LABS: PLATELET COUNT 36 K/MM3 (134-434)
[2020-05-09] MEDS: METOPROLOL TARTRATE 5 MG/5 ML VIAL IVPUSH PRN ×2 (08:40→21:45)
[2020-05-09] MEDS: PROPOFOL 1,000,000 MCG/100 ML VIAL IVPB SCH ×3 (08:43→20:45)
[2020-05-09] MEDS ORDERED: METOPROLOL TARTRATE 5 MG/5 ML VIAL IVPUSH ONE (08:45)
[2020-05-09 09:42] LABS: ANISOCYTOSIS 2+; MACROCYTOSIS 0; PLATELET ESTIMATE DECREASED
[2020-05-09] MEDS ORDERED: INSULIN (LEVEMIR) 100 UNITS/ML UNITS SQ SCH (09:55)
[2020-05-09] MEDS ORDERED: LACTATED RINGERS SOLUTION 1,000 ML/1,000 ML INFUS.BAG IV SCH (10:00)
[2020-05-09] MEDS ORDERED: METOPROLOL TARTRATE 25 MG TABLET (FP) PO SCH (10:00)
[2020-05-09] MEDS: MUPIROCIN 2% TOPICAL OINTMENT FOR DECOLONIZATION NS SCH ×2 (10:06→21:38)
[2020-05-09] MEDS: PANTOPRAZOLE SODIUM 40 MG VIAL IVPUSH SCH ×2 (10:09→21:43)
[2020-05-09] MEDS: THIAMINE HCL 200 MG/2 ML VIAL IVPB SCH (10:10)
[2020-05-09] MEDS: INSULIN (LEVEMIR) 100 UNITS/ML UNITS SQ SCH ×2 (10:10→21:41)
[2020-05-09] MEDS ORDERED: AMIODARONE IN DEXTROSE,ISO-OSM 360 MG/200 ML BAG IVPB ONE (12:50)
[2020-05-09] MEDS: ACETAMINOPHEN 1000 MG/100 ML VIAL (NON FORMULARY) IVPB PRN ×2 (13:04→18:05)
[2020-05-09] MEDS ORDERED: AMIODARONE IN DEXTROSE,ISO-OSM 150 MG/100 ML BAG IVPB ONE (13:06)
[2020-05-09] MEDS ORDERED: DEXTROSE 5%-WATER 100 ML IVPB ONE (15:53)
[2020-05-09] MEDS ORDERED: MEROPENEM 1 GM VIAL (RESTRICTED TO ID) IVPB ONE (15:53)
[2020-05-09] MEDS ORDERED: PT OWN MED DRAWER 7, Y5N ONE (15:55)
[2020-05-09] MEDS: AMINO ACIDS 4.25%/D5W 1,000 ML IV SCH (16:17)
[2020-05-09] MEDS ORDERED: DEXTROSE 5%-WATER - 1,000 ML IV SCH (18:00)
[2020-05-09] MEDS: AMIODARONE IN DEXTROSE,ISO-OSM 360 MG/200 ML BAG IVPB SCH (19:25)
[2020-05-09] MEDS: CHLORHEXIDINE GLUCONATE 4% CLEANSER FOR DECOLONIZATION TP SCH (21:38)
[2020-05-10] MEDS ORDERED: MIDAZOLAM 100 MG/100 ML MG IVPB ONE ×3 (00:49→12:58)
[2020-05-10] MEDS: MIDAZOLAM IN 0.9 % SOD.CHLORID 100 MG/100 ML PLAST..BAG IVPB SCH ×2 (01:00→09:37)
[2020-05-10] MEDS ORDERED: DEXTROSE 5%-WATER 100 ML IVPB ONE ×2 (01:22→14:18)
[2020-05-10] MEDS ORDERED: MEROPENEM 1 GM VIAL (RESTRICTED TO ID) IVPB ONE ×2 (01:22→14:17)
[2020-05-10] MEDS: HYDROCORTISONE SOD SUCCINATE 100 MG/2 ML VIAL IVPB SCH ×3 (01:25→17:36)
[2020-05-10] MEDS ORDERED: METOPROLOL TARTRATE 5 MG/5 ML VIAL IVPUSH ONE (01:41)
[2020-05-10] MEDS: VASOPRESSIN 40 UNITS in SODIUM CHLORIDE 98 ML IVPB SCH (02:30)
[2020-05-10] MEDS: MEROPENEM 1 GM in DEXTROSE 5%-WATER 100 ML IVPB SCH ×2 (02:30→14:20)
[2020-05-10] MEDS: ACETAMINOPHEN 1000 MG/100 ML VIAL (NON FORMULARY) IVPB PRN ×2 (03:00→09:10)
[2020-05-10] MEDS ORDERED: chlordiazePOXIDE HCL 10 MG CAPSULE PO ONE (05:00)
[2020-05-10] MEDS: NOREPINEPHRINE D5W PREMIX 16,000 MCG/500 ML BAG IVPB SCH (06:22)
[2020-05-10] MEDS ORDERED: diazePAM CARPU-JECT 10 MG/2 ML DISP.SYRIN IVPUSH ONE (06:24)
[2020-05-10] MEDS: INSULIN (LEVEMIR) 100 UNITS/ML UNITS SQ SCH ×2 (06:25→21:58)
[2020-05-10] MEDS: INSULIN SLIDING SCALE (NOVOLOG) 1 VIAL SQ SCH ×5 (06:25→21:59)
[2020-05-10] MEDS: METOPROLOL TARTRATE 5 MG/5 ML VIAL IVPUSH PRN (06:31)
[2020-05-10] MEDS: PROPOFOL 1,000,000 MCG/100 ML VIAL IVPB SCH ×4 (06:50→20:55)
[2020-05-10] MEDS: AMIODARONE IN DEXTROSE,ISO-OSM 360 MG/200 ML BAG IVPB SCH ×2 (06:51→21:00)
[2020-05-10 07:03] LABS: BASO % 0.2 % (0-2.0); HEMATOCRIT 36.8 % (35.4-49); HEMOGLOBIN 12.1 GM/dL (11.7-16.9); LYMPH % 4.7 % (8-40); MCH 28.1 pg (25.7-33.7); MCHC 32.8 g/dl (32.0-35.9); MEAN CELL VOLUME 85.6 fl (80-96); MEAN PLT VOLUME 12.2 fl (7.5-11.1); MONO % 9.4 % (3.8-10.2); NEUT % 85.7 % (42.8-82.8); PLATELET COUNT 69 K/MM3 (134-434); RDW 16.1 % (11.9-15.9); WHITE BLOOD COUNT 19.4 K/mm3 (4.0-10.0)
[2020-05-10 07:16] LABS: INR 1.17 (0.83-1.09); PROTHROMBIN TIME (PATIENT) 14.1 SEC (9.7-13.0)
[2020-05-10 07:17] LABS: ACTIVATED PTT 27.6 SECONDS (25.2-36.5)
[2020-05-10 07:23] LABS: POTASSIUM 3.7 mmol/L (3.5-5.1)
[2020-05-10 07:28] LABS: ALBUMIN 1.8 g/dl (3.4-5.0); CALCIUM 7.2 mg/dL (8.5-10.1)
[2020-05-10 07:29] LABS: BLOOD UREA NITROGEN 66.9 mg/dL (7-18); MAGNESIUM 2.9 mg/dL (1.8-2.4)
[2020-05-10 07:31] LABS: CREATININE 1.8 mg/dL (0.55-1.3); PHOSPHOROUS 3.9 mg/dL (2.5-4.9)
[2020-05-10 07:33] LABS: BILIRUBIN,TOTAL 1.1 mg/dL (0.2-1); TOT PROT 5.8 g/dl (6.4-8.2)
[2020-05-10] MEDS: THIAMINE HCL 200 MG/2 ML VIAL IVPB SCH (09:10)
[2020-05-10] MEDS: PANTOPRAZOLE SODIUM 40 MG VIAL IVPUSH SCH ×2 (09:10→22:02)
[2020-05-10] MEDS: MUPIROCIN 2% TOPICAL OINTMENT FOR DECOLONIZATION NS SCH ×2 (09:12→21:57)
[2020-05-10] MEDS: AMINO ACIDS 4.25%/D5W 1,000 ML IV SCH (09:36)
[2020-05-10 10:55] LABS: ANISOCYTOSIS 1+; MACROCYTOSIS 0; PLATELET ESTIMATE DECREASED
[2020-05-10] MEDS ORDERED: SODIUM CHLORIDE 0.45% 1,000 ML IV SCH (12:00)
[2020-05-10] MEDS: CHLORHEXIDINE GLUCONATE 4% CLEANSER FOR DECOLONIZATION TP SCH (21:57)
[2020-05-10] MEDS ORDERED: INSULIN (LEVEMIR) 100 UNITS/ML UNITS SQ SCH ×2 (22:00)
[2020-05-11] MEDS: HYDROCORTISONE SOD SUCCINATE 100 MG/2 ML VIAL IVPB SCH ×2 (03:32→09:24)
[2020-05-11] MEDS: VASOPRESSIN 40 UNITS in SODIUM CHLORIDE 98 ML IVPB SCH (03:32)
[2020-05-11] MEDS: NOREPINEPHRINE D5W PREMIX 16,000 MCG/500 ML BAG IVPB SCH (03:33)
[2020-05-11] MEDS: MEROPENEM 1 GM in DEXTROSE 5%-WATER 100 ML IVPB SCH (03:33)
[2020-05-11] MEDS ORDERED: MEROPENEM 1 GM VIAL (RESTRICTED TO ID) IVPB ONE (03:35)
[2020-05-11] MEDS ORDERED: DEXTROSE 5%-WATER 100 ML IVPB ONE (03:35)
[2020-05-11] MEDS: INSULIN (LEVEMIR) 100 UNITS/ML UNITS SQ SCH ×2 (06:19→22:26)
[2020-05-11] MEDS: INSULIN SLIDING SCALE (NOVOLOG) 1 VIAL SQ SCH ×4 (06:20→22:26)
[2020-05-11] MEDS ORDERED: MIDAZOLAM 100 MG/100 ML MG IVPB ONE ×2 (07:31→18:02)
[2020-05-11 07:39] LABS: BASO % 0.1 % (0-2.0); EOS % 0.1 % (0-4.5); HEMOGLOBIN 12.1 GM/dL (11.7-16.9); LYMPH % 3.1 % (8-40); MCH 27.9 pg (25.7-33.7); MCHC 32.7 g/dl (32.0-35.9); MEAN CELL VOLUME 85.3 fl (80-96); MEAN PLT VOLUME 11.7 fl (7.5-11.1); MONO % 5.4 % (3.8-10.2); NEUT % 91.3 % (42.8-82.8); PLATELET COUNT 68 K/MM3 (134-434); RBC 4.34 M/mm3 (4.00-5.60); RDW 15.8 % (11.9-15.9); WHITE BLOOD COUNT 24.4 K/mm3 (4.0-10.0)
[2020-05-11 07:49] LABS: INR 1.16 (0.83-1.09); PROTHROMBIN TIME (PATIENT) 14.2 SEC (9.7-13.0)
[2020-05-11 07:50] LABS: ACTIVATED PTT 25.8 SECONDS (25.2-36.5)
[2020-05-11 08:28] LABS: POTASSIUM 3.4 mmol/L (3.5-5.1)
[2020-05-11] MEDS: PANTOPRAZOLE SODIUM 40 MG VIAL IVPUSH SCH ×2 (09:00→22:23)
[2020-05-11] MEDS: MIDAZOLAM IN 0.9 % SOD.CHLORID 100 MG/100 ML PLAST..BAG IVPB SCH ×2 (09:01→20:41)
[2020-05-11] MEDS: THIAMINE HCL 200 MG/2 ML VIAL IVPB SCH (09:01)
[2020-05-11 09:04] LABS: CALCIUM 7.4 mg/dL (8.5-10.1)
[2020-05-11 09:05] LABS: ALBUMIN 1.7 g/dl (3.4-5.0); MAGNESIUM 2.8 mg/dL (1.8-2.4)
[2020-05-11 09:08] LABS: CREATININE 1.7 mg/dL (0.55-1.3); PHOSPHOROUS 3.7 mg/dL (2.5-4.9)
[2020-05-11 09:09] LABS: BILIRUBIN,TOTAL 0.8 mg/dL (0.2-1); TOT PROT 5.6 g/dl (6.4-8.2)
[2020-05-11] MEDS ORDERED: CEFTRIAXONE 2 GM-D5W BAG 2 GM/50 ML BAG IVPB SCH (10:15)
[2020-05-11] MEDS: POTASSIUM CHLORIDE ORAL LIQUID 20 MEQ/15 ML PO SCH ×2 (10:52→22:23)
[2020-05-11] MEDS: PROPOFOL 1,000,000 MCG/100 ML VIAL IVPB SCH ×2 (12:00→20:42)
[2020-05-11] MEDS ORDERED: PT OWN MED DRAWER 7, Y5N ONE (14:55)
[2020-05-11 15:14] LABS: ANISOCYTOSIS 1+; MACROCYTOSIS 1+; PLATELET ESTIMATE DECREASED
[2020-05-11] MEDS: chlordiazePOXIDE HCL 25 MG CAPSULE PO SCH (17:03)
[2020-05-11] MEDS: ACETAMINOPHEN 1000 MG/100 ML VIAL (NON FORMULARY) IVPB PRN (20:42)
[2020-05-11] MEDS: AMIODARONE IN DEXTROSE,ISO-OSM 360 MG/200 ML BAG IVPB SCH (21:18)
[2020-05-11] MEDS: CHLORHEXIDINE GLUCONATE 4% CLEANSER FOR DECOLONIZATION TP SCH (22:23)
[2020-05-12] MEDS: chlordiazePOXIDE HCL 25 MG CAPSULE PO SCH ×5 (02:50→23:54)
[2020-05-12] MEDS: PROPOFOL 1,000,000 MCG/100 ML VIAL IVPB SCH ×5 (03:16→23:02)
[2020-05-12] MEDS ORDERED: MIDAZOLAM 100 MG/100 ML MG IVPB ONE ×3 (05:02→21:20)
[2020-05-12] MEDS: INSULIN (LEVEMIR) 100 UNITS/ML UNITS SQ SCH ×2 (06:35→23:51)
[2020-05-12] MEDS: MIDAZOLAM IN 0.9 % SOD.CHLORID 100 MG/100 ML PLAST..BAG IVPB SCH ×3 (06:35→23:03)
[2020-05-12] MEDS: INSULIN SLIDING SCALE (NOVOLOG) 1 VIAL SQ SCH ×4 (06:36→23:52)
[2020-05-12 07:14] LABS: BASO % 0.1 % (0-2.0); EOS % 1.1 % (0-4.5); HEMATOCRIT 35.5 % (35.4-49); HEMOGLOBIN 11.6 GM/dL (11.7-16.9); LYMPH % 4.9 % (8-40); MCHC 32.7 g/dl (32.0-35.9); MEAN CELL VOLUME 85.7 fl (80-96); MEAN PLT VOLUME 11.9 fl (7.5-11.1); MONO % 3.9 % (3.8-10.2); PLATELET COUNT 93 K/MM3 (134-434); RBC 4.15 M/mm3 (4.00-5.60); RDW 16.2 % (11.9-15.9); WHITE BLOOD COUNT 23.2 K/mm3 (4.0-10.0)
[2020-05-12 07:25] LABS: INR 1.17 (0.83-1.09); PROTHROMBIN TIME (PATIENT) 14.3 SEC (9.7-13.0)
[2020-05-12 07:27] LABS: ACTIVATED PTT 26.5 SECONDS (25.2-36.5)
[2020-05-12 07:39] LABS: POTASSIUM 3.8 mmol/L (3.5-5.1)
[2020-05-12 07:46] LABS: ALBUMIN 1.6 g/dl (3.4-5.0); BLOOD UREA NITROGEN 77.3 mg/dL (7-18); CALCIUM 7.1 mg/dL (8.5-10.1); MAGNESIUM 2.6 mg/dL (1.8-2.4)
[2020-05-12 07:50] LABS: CREATININE 1.5 mg/dL (0.55-1.3); PHOSPHOROUS 3.7 mg/dL (2.5-4.9)
[2020-05-12 07:51] LABS: BILIRUBIN,TOTAL 0.9 mg/dL (0.2-1); TOT PROT 5.5 g/dl (6.4-8.2)
[2020-05-12] MEDS ORDERED: DEXTROSE 5%-WATER 100 ML IVPB ONE (09:00)
[2020-05-12] MEDS: PANTOPRAZOLE SODIUM 40 MG VIAL IVPUSH SCH ×2 (09:05→23:53)
[2020-05-12] MEDS: CEFTRIAXONE 2 GM in DEXTROSE 5%-WATER 2 GM/100 ML BAG IVPB SCH (09:05)
[2020-05-12] MEDS: THIAMINE HCL 200 MG/2 ML VIAL IVPB SCH (09:06)
[2020-05-12 09:45] LABS: ANISOCYTOSIS 1+; MACROCYTOSIS 1+; PLATELET ESTIMATE DECREASED
[2020-05-12] MEDS ORDERED: CASPOFUNGIN ACETATE 70 MG in SODIUM CHLORIDE 250 ML IVPB ONE (10:00)
[2020-05-12] MEDS ORDERED: VECURONIUM BROMIDE 10 MG/10 ML VIAL ONE (10:35)
[2020-05-12] MEDS ORDERED: ROCURONIUM BROMIDE 50 MG/5 ML VIAL IV ONE (10:35)
[2020-05-12] MEDS ORDERED: VECURONIUM BROMIDE 50 MG/50 ML VIAL IVPUSH ONE (10:43)
[2020-05-12] MEDS ORDERED: NOREPINEPHRINE BITARTRATE 4 MG/4 ML ML IV ONE (11:03)
[2020-05-12] MEDS: NOREPINEPHRINE BITARTRATE 16,000 MCG in SODIUM CHLORIDE 484 ML IV SCH (11:14)
[2020-05-12] MEDS ORDERED: PT OWN MED DRAWER 7, Y5N ONE (11:35)
[2020-05-12 12:38] LABS: ARTERIAL BLD GAS O2 SATURATION 96.4 mmHg (95-98); ARTERIAL BLOOD GAS BASE EXCESS -3.6 mmol/L (-2-2); ARTERIAL BLOOD GAS PO2 93.4 mmHg (80-100); ARTERIAL BLOOD GAS pH 7.298 (7.350-7.450)
[2020-05-12 12:40] LABS: ALLENS TEST POSITIVE; VENT MODE A/C; VENT RATE 24
[2020-05-12] MEDS: AMIODARONE HCL 200 MG TABLET PO SCH ×2 (14:20→23:52)
[2020-05-12] MEDS ORDERED: LIDOCAINE HCL 1%, 10 MG/ML (20ML VIAL) ONE (14:31)
[2020-05-12] MEDS: ACETAMINOPHEN 1000 MG/100 ML VIAL (NON FORMULARY) IVPB PRN (18:00)
[2020-05-12] MEDS: VECURONIUM BROMIDE 100 MG/100 ML BAG IVPB SCH (20:30)
[2020-05-12] MEDS: CHLORHEXIDINE GLUCONATE 4% CLEANSER FOR DECOLONIZATION TP SCH (23:01)
[2020-05-13] MEDS ORDERED: MIDAZOLAM HCL 2 MG/2 ML SINGLE DOSE VIAL ONE (02:30)
[2020-05-13] MEDS: PROPOFOL 1,000,000 MCG/100 ML VIAL IVPB SCH ×5 (04:39→23:45)
[2020-05-13] MEDS: VECURONIUM BROMIDE 100 MG/100 ML BAG IVPB SCH ×2 (06:05→15:18)
[2020-05-13] MEDS: chlordiazePOXIDE HCL 25 MG CAPSULE PO SCH ×2 (06:05→15:04)
[2020-05-13] MEDS: INSULIN (LEVEMIR) 100 UNITS/ML UNITS SQ SCH ×2 (06:06→21:02)
[2020-05-13] MEDS: MIDAZOLAM IN 0.9 % SOD.CHLORID 100 MG/100 ML PLAST..BAG IVPB SCH ×3 (06:06→18:23)
[2020-05-13] MEDS: INSULIN SLIDING SCALE (NOVOLOG) 1 VIAL SQ SCH ×4 (06:16→21:02)
[2020-05-13] MEDS ORDERED: MIDAZOLAM 100 MG/100 ML MG IVPB ONE ×2 (06:18→18:02)
[2020-05-13 06:31] LABS: ARTERIAL BLD GAS O2 SATURATION 97.8 mmHg (95-98); ARTERIAL BLOOD GAS BASE EXCESS -0.8 mmol/L (-2-2); ARTERIAL BLOOD GAS PO2 110.6 mmHg (80-100); ARTERIAL BLOOD GAS pH 7.354 (7.350-7.450)
[2020-05-13 06:32] LABS: VENT MODE A/C; VENT RATE 24
[2020-05-13 07:25] LABS: BASO % 0.2 % (0-2.0); HEMATOCRIT 33.9 % (35.4-49); HEMOGLOBIN 11.1 GM/dL (11.7-16.9); LYMPH % 5.3 % (8-40); MCH 28.2 pg (25.7-33.7); MCHC 32.8 g/dl (32.0-35.9); MEAN CELL VOLUME 85.9 fl (80-96); MEAN PLT VOLUME 10.9 fl (7.5-11.1); MONO % 3.9 % (3.8-10.2); NEUT % 89.6 % (42.8-82.8); PLATELET COUNT 95 K/MM3 (134-434); RBC 3.95 M/mm3 (4.00-5.60); RDW 16.2 % (11.9-15.9); WHITE BLOOD COUNT 19.2 K/mm3 (4.0-10.0)
[2020-05-13 07:35] LABS: INR 1.25 (0.83-1.09); PROTHROMBIN TIME (PATIENT) 15.3 SEC (9.7-13.0)
[2020-05-13 07:36] LABS: ACTIVATED PTT 27.5 SECONDS (25.2-36.5)
[2020-05-13 07:50] LABS: POTASSIUM 4.3 mmol/L (3.5-5.1)
[2020-05-13 07:53] LABS: ALBUMIN 1.6 g/dl (3.4-5.0); CALCIUM 7.2 mg/dL (8.5-10.1)
[2020-05-13 07:54] LABS: BLOOD UREA NITROGEN 61.4 mg/dL (7-18); MAGNESIUM 2.5 mg/dL (1.8-2.4)
[2020-05-13 07:56] LABS: CREATININE 1.3 mg/dL (0.55-1.3)
[2020-05-13 07:57] LABS: PHOSPHOROUS 3.9 mg/dL (2.5-4.9)
[2020-05-13 07:58] LABS: BILIRUBIN,TOTAL 0.8 mg/dL (0.2-1); TOT PROT 5.4 g/dl (6.4-8.2)
[2020-05-13] MEDS ORDERED: OCULAR LUBRICANT OPHTHALMIC OINTMENT 7 GM TUBE OU PRN (08:01)
[2020-05-13] MEDS ORDERED: NOREPINEPHRINE D5W PREMIX 16,000 MCG/500 ML BAG IVPB ONE (08:14)
[2020-05-13] MEDS ORDERED: DEXTROSE 5%-WATER 100 ML IVPB ONE (09:22)
[2020-05-13] MEDS: CEFTRIAXONE 2 GM in DEXTROSE 5%-WATER 2 GM/100 ML BAG IVPB SCH (09:29)
[2020-05-13] MEDS: PANTOPRAZOLE SODIUM 40 MG VIAL IVPUSH SCH ×2 (09:30→21:00)
[2020-05-13] MEDS: AMIODARONE HCL 200 MG TABLET PO SCH ×2 (09:30→21:03)
[2020-05-13] MEDS: THIAMINE HCL 200 MG/2 ML VIAL IVPB SCH (09:47)
[2020-05-13] MEDS: NOREPINEPHRINE BITARTRATE 16,000 MCG in SODIUM CHLORIDE 484 ML IV SCH (15:06)
[2020-05-13] MEDS: HEPARIN NA (PORCINE) 5,000 UNITS/ML 1ML VIAL SQ SCH ×2 (15:18→21:03)
[2020-05-13] MEDS: ACETAMINOPHEN 1000 MG/100 ML VIAL (NON FORMULARY) IVPB PRN (15:53)
[2020-05-13] MEDS: CASPOFUNGIN ACETATE 50 MG in SODIUM CHLORIDE 250 ML IVPB SCH (19:52)
[2020-05-13] MEDS: CHLORHEXIDINE GLUCONATE 4% CLEANSER FOR DECOLONIZATION TP SCH (21:03)
[2020-05-14] MEDS: ACETAMINOPHEN 1000 MG/100 ML VIAL (NON FORMULARY) IVPB PRN (00:20)
[2020-05-14] MEDS ORDERED: MIDAZOLAM 100 MG/100 ML MG IVPB ONE ×3 (01:32→23:48)
[2020-05-14] MEDS: PROPOFOL 1,000,000 MCG/100 ML VIAL IVPB SCH ×2 (01:35→22:37)
[2020-05-14] MEDS: MIDAZOLAM IN 0.9 % SOD.CHLORID 100 MG/100 ML PLAST..BAG IVPB SCH (01:35)
[2020-05-14] MEDS: INSULIN SLIDING SCALE (NOVOLOG) 1 VIAL SQ SCH ×4 (06:25→22:41)
[2020-05-14] MEDS: INSULIN (LEVEMIR) 100 UNITS/ML UNITS SQ SCH ×2 (06:26→22:41)
[2020-05-14] MEDS: HEPARIN NA (PORCINE) 5,000 UNITS/ML 1ML VIAL SQ SCH ×3 (06:29→22:40)
[2020-05-14 07:06] LABS: HEMATOCRIT 31.5 % (35.4-49); HEMOGLOBIN 10.1 GM/dL (11.7-16.9); MCH 27.7 pg (25.7-33.7); MCHC 31.9 g/dl (32.0-35.9); MEAN CELL VOLUME 86.9 fl (80-96); MEAN PLT VOLUME 10.5 fl (7.5-11.1); PLATELET COUNT 112 K/MM3 (134-434); RBC 3.63 M/mm3 (4.00-5.60); RDW 16.1 % (11.9-15.9); WHITE BLOOD COUNT 19.9 K/mm3 (4.0-10.0)
[2020-05-14 07:21] LABS: POTASSIUM 4.1 mmol/L (3.5-5.1)
[2020-05-14 07:31] LABS: ALBUMIN 1.4 g/dl (3.4-5.0); BLOOD UREA NITROGEN 43.5 mg/dL (7-18)
[2020-05-14 07:32] LABS: MAGNESIUM 2.1 mg/dL (1.8-2.4)
[2020-05-14 07:34] LABS: CREATININE 1.1 mg/dL (0.55-1.3); PHOSPHOROUS 2.7 mg/dL (2.5-4.9)
[2020-05-14 07:35] LABS: BILIRUBIN,TOTAL 0.7 mg/dL (0.2-1)
[2020-05-14 07:36] LABS: TOT PROT 5.2 g/dl (6.4-8.2)
[2020-05-14] MEDS ORDERED: DEXTROSE 5%-WATER 100 ML IVPB ONE (08:22)
[2020-05-14] MEDS: AMIODARONE HCL 200 MG TABLET PO SCH ×2 (09:35→22:40)
[2020-05-14] MEDS: CEFTRIAXONE 2 GM in DEXTROSE 5%-WATER 2 GM/100 ML BAG IVPB SCH (09:35)
[2020-05-14] MEDS: PANTOPRAZOLE SODIUM 40 MG VIAL IVPUSH SCH ×2 (09:35→22:40)
[2020-05-14] MEDS: THIAMINE HCL 200 MG/2 ML VIAL IVPB SCH (09:35)
[2020-05-14] MEDS ORDERED: CASPOFUNGIN ACETATE 50 MG in SODIUM CHLORIDE 250 ML IVPB SCH (10:00)
[2020-05-14] MEDS ORDERED: PROPOFOL 1,000,000 MCG/100 ML VIAL ONE (13:46)
[2020-05-14] MEDS: CASPOFUNGIN ACETATE 50 MG in SODIUM CHLORIDE 250 ML IVPB SCH (17:15)
[2020-05-14] MEDS ORDERED: NOREPINEPHRINE D5W PREMIX 16,000 MCG/500 ML BAG IVPB ONE (19:04)
[2020-05-14] MEDS: NOREPINEPHRINE BITARTRATE 16,000 MCG in SODIUM CHLORIDE 484 ML IV SCH (22:36)
[2020-05-14] MEDS: VECURONIUM BROMIDE 100 MG/100 ML BAG IVPB SCH (22:37)
[2020-05-14] MEDS: CHLORHEXIDINE GLUCONATE 4% CLEANSER FOR DECOLONIZATION TP SCH (22:37)
[2020-05-15] MEDS: PROPOFOL 1,000,000 MCG/100 ML VIAL IVPB SCH ×3 (01:45→14:55)
[2020-05-15] MEDS: MIDAZOLAM IN 0.9 % SOD.CHLORID 100 MG/100 ML PLAST..BAG IVPB SCH (01:50)
[2020-05-15] MEDS: HEPARIN NA (PORCINE) 5,000 UNITS/ML 1ML VIAL SQ SCH ×3 (06:24→21:58)
[2020-05-15] MEDS: INSULIN (LEVEMIR) 100 UNITS/ML UNITS SQ SCH ×2 (06:25→21:58)
[2020-05-15] MEDS: INSULIN SLIDING SCALE (NOVOLOG) 1 VIAL SQ SCH ×4 (06:26→22:04)
[2020-05-15 06:41] LABS: HEMATOCRIT 30.8 % (35.4-49); HEMOGLOBIN 10.1 GM/dL (11.7-16.9); MCH 28.4 pg (25.7-33.7); MCHC 32.9 g/dl (32.0-35.9); MEAN CELL VOLUME 86.2 fl (80-96); MEAN PLT VOLUME 10.5 fl (7.5-11.1); PLATELET COUNT 164 K/MM3 (134-434); RBC 3.58 M/mm3 (4.00-5.60); WHITE BLOOD COUNT 19.7 K/mm3 (4.0-10.0)
[2020-05-15 06:42] LABS: INR 1.45 (0.83-1.09); PROTHROMBIN TIME (PATIENT) 17.7 SEC (9.7-13.0)
[2020-05-15 06:44] LABS: ACTIVATED PTT 31.4 SECONDS (25.2-36.5)
[2020-05-15 06:52] LABS: ALBUMIN 1.4 g/dl (3.4-5.0); BLOOD UREA NITROGEN 38.8 mg/dL (7-18); POTASSIUM 4.1 mmol/L (3.5-5.1)
[2020-05-15 06:56] LABS: CREATININE 1.1 mg/dL (0.55-1.3); PHOSPHOROUS 2.4 mg/dL (2.5-4.9)
[2020-05-15 06:57] LABS: BILIRUBIN,TOTAL 0.4 mg/dL (0.2-1); TOT PROT 5.6 g/dl (6.4-8.2)
[2020-05-15 07:36] LABS: CALCIUM 6.8 mg/dL (8.5-10.1)
[2020-05-15] MEDS ORDERED: NAPH,MB-DB/K PH,MBDB POWDER PACKET PO ONE ×2 (08:10→15:00)
[2020-05-15] MEDS: PANTOPRAZOLE SODIUM 40 MG VIAL IVPUSH SCH ×2 (10:00→21:58)
[2020-05-15] MEDS: AMIODARONE HCL 200 MG TABLET PO SCH ×2 (10:00→21:39)
[2020-05-15] MEDS ORDERED: DEXTROSE 5%-WATER 100 ML IVPB ONE ×2 (10:04→19:37)
[2020-05-15] MEDS ORDERED: MIDAZOLAM 100 MG/100 ML MG IVPB ONE ×2 (10:08→20:00)
[2020-05-15] MEDS ORDERED: SODIUM CHLORIDE 1,000 ML IV SCH (10:15)
[2020-05-15] MEDS: THIAMINE HCL 200 MG/2 ML VIAL IVPB SCH (10:56)
[2020-05-15] MEDS: CEFTRIAXONE 2 GM in DEXTROSE 5%-WATER 2 GM/100 ML BAG IVPB SCH (10:56)
[2020-05-15] MEDS ORDERED: IBUPROFEN 800 MG/8 ML IJ IVPB ONE (13:45)
[2020-05-15] MEDS: NOREPINEPHRINE BITARTRATE 16,000 MCG in SODIUM CHLORIDE 484 ML IV SCH (16:55)
[2020-05-15] MEDS: VECURONIUM BROMIDE 100 MG/100 ML BAG IVPB SCH (16:55)
[2020-05-15] MEDS: CASPOFUNGIN ACETATE 50 MG in SODIUM CHLORIDE 250 ML IVPB SCH (18:08)
[2020-05-15] MEDS ORDERED: PIPERACILLIN/TAZOB 4.5 GM 4.5 GM in DEXTROSE 5%-WATER 100 ML IVPB SCH (19:00)
[2020-05-15] MEDS: MEROPENEM 1 GM in DEXTROSE 5%-WATER 100 ML IVPB SCH (19:32)
[2020-05-15] MEDS: VANCOMYCIN 1,000 MG in DEXTROSE 5%-WATER - 250 ML IVPB SCH (19:35)
[2020-05-15] MEDS ORDERED: MEROPENEM 1 GM VIAL (RESTRICTED TO ID) IVPB ONE (19:37)
[2020-05-15] MEDS ORDERED: PT OWN MED DRAWER 7, Y5N ONE (19:38)
[2020-05-15] MEDS: CHLORHEXIDINE GLUCONATE 4% CLEANSER FOR DECOLONIZATION TP SCH (21:45)
[2020-05-15] MEDS: VASOPRESSIN 40 UNITS in SODIUM CHLORIDE 98 ML IVPB SCH (21:57)
[2020-05-15] MEDS: ACETAMINOPHEN 1000 MG/100 ML VIAL (NON FORMULARY) IVPB PRN (22:10)
[2020-05-16] MEDS ORDERED: DEXTROSE 5%-WATER 100 ML IVPB ONE ×3 (01:09→16:47)
[2020-05-16] MEDS ORDERED: MEROPENEM 1 GM VIAL (RESTRICTED TO ID) IVPB ONE ×3 (01:09→16:47)
[2020-05-16] MEDS: MEROPENEM 1 GM in DEXTROSE 5%-WATER 100 ML IVPB SCH ×3 (01:18→17:06)
[2020-05-16] MEDS ORDERED: MIDAZOLAM 100 MG/100 ML MG IVPB ONE ×2 (02:49→17:30)
[2020-05-16] MEDS: HEPARIN NA (PORCINE) 5,000 UNITS/ML 1ML VIAL SQ SCH ×3 (05:27→21:26)
[2020-05-16] MEDS: VANCOMYCIN 1,000 MG in DEXTROSE 5%-WATER - 250 ML IVPB SCH ×2 (06:00→19:00)
[2020-05-16] MEDS: INSULIN (LEVEMIR) 100 UNITS/ML UNITS SQ SCH ×2 (06:01→21:23)
[2020-05-16] MEDS ORDERED: NOREPINEPHRINE D5W PREMIX 16,000 MCG/500 ML BAG IVPB ONE (06:37)
[2020-05-16] MEDS: INSULIN SLIDING SCALE (NOVOLOG) 1 VIAL SQ SCH ×4 (06:43→21:20)
[2020-05-16 07:15] LABS: BASO % 0.2 % (0-2.0); EOS % 0.8 % (0-4.5); HEMATOCRIT 30.1 % (35.4-49); HEMOGLOBIN 9.6 GM/dL (11.7-16.9); LYMPH % 4.4 % (8-40); MCH 27.6 pg (25.7-33.7); MCHC 31.8 g/dl (32.0-35.9); MEAN CELL VOLUME 86.6 fl (80-96); MEAN PLT VOLUME 10.6 fl (7.5-11.1); MONO % 4.4 % (3.8-10.2); NEUT % 90.2 % (42.8-82.8); PLATELET COUNT 174 K/MM3 (134-434); RBC 3.48 M/mm3 (4.00-5.60); RDW 15.6 % (11.9-15.9); WHITE BLOOD COUNT 16.1 K/mm3 (4.0-10.0)
[2020-05-16 07:36] LABS: POTASSIUM 4.5 mmol/L (3.5-5.1)
[2020-05-16 07:47] LABS: ALBUMIN 1.3 g/dl (3.4-5.0); BLOOD UREA NITROGEN 32.4 mg/dL (7-18)
[2020-05-16 07:50] LABS: PHOSPHOROUS 2.8 mg/dL (2.5-4.9)
[2020-05-16 07:52] LABS: BILIRUBIN,TOTAL 0.9 mg/dL (0.2-1); TOT PROT 5.5 g/dl (6.4-8.2)
[2020-05-16] MEDS: PROPOFOL 1,000,000 MCG/100 ML VIAL IVPB SCH ×4 (08:00→22:59)
[2020-05-16] MEDS: VECURONIUM BROMIDE 100 MG/100 ML BAG IVPB SCH ×2 (08:00→22:59)
[2020-05-16 08:01] LABS: CALCIUM 6.4 mg/dL (8.5-10.1)
[2020-05-16] MEDS: PANTOPRAZOLE SODIUM 40 MG VIAL IVPUSH SCH ×2 (11:00→21:25)
[2020-05-16] MEDS: AMIODARONE HCL 200 MG TABLET PO SCH (11:00)
[2020-05-16] MEDS: THIAMINE HCL 200 MG/2 ML VIAL IVPB SCH (11:32)
[2020-05-16] MEDS: ACETAMINOPHEN 1000 MG/100 ML VIAL (NON FORMULARY) IVPB PRN (12:30)
[2020-05-16] MEDS: VASOPRESSIN 40 UNITS in SODIUM CHLORIDE 98 ML IVPB SCH (14:04)
[2020-05-16] MEDS ORDERED: SODIUM CHLORIDE 0.45% 1,000 ML IV SCH (15:45)
[2020-05-16] MEDS: AMINO ACIDS/PROTEIN HYDROLYS 30 ML LIQUID.PKT PO SCH (16:45)
[2020-05-16] MEDS ORDERED: PT OWN MED DRAWER 7, Y5N ONE (16:49)
[2020-05-16] MEDS: CASPOFUNGIN ACETATE 50 MG in SODIUM CHLORIDE 250 ML IVPB SCH (17:06)
[2020-05-16] MEDS: MIDAZOLAM IN 0.9 % SOD.CHLORID 100 MG/100 ML PLAST..BAG IVPB SCH (17:30)
[2020-05-16] MEDS: NOREPINEPHRINE BITARTRATE 16,000 MCG in SODIUM CHLORIDE 484 ML IV SCH ×2 (21:17→22:59)
[2020-05-16] MEDS: CHLORHEXIDINE GLUCONATE 4% CLEANSER FOR DECOLONIZATION TP SCH (21:18)
[2020-05-16] MEDS: AMIODARONE HCL 200 MG TABLET NGT SCH (21:26)
[2020-05-17] MEDS ORDERED: MEROPENEM 1 GM VIAL (RESTRICTED TO ID) IVPB ONE ×3 (00:37→18:42)
[2020-05-17] MEDS ORDERED: DEXTROSE 5%-WATER 100 ML IVPB ONE ×3 (00:37→18:43)
[2020-05-17] MEDS ORDERED: MIDAZOLAM 100 MG/100 ML MG IVPB ONE ×3 (00:38→21:33)
[2020-05-17] MEDS: PROPOFOL 1,000,000 MCG/100 ML VIAL IVPB SCH ×5 (00:45→21:40)
[2020-05-17] MEDS: VASOPRESSIN 40 UNITS in SODIUM CHLORIDE 98 ML IVPB SCH ×2 (00:45→13:53)
[2020-05-17] MEDS: NOREPINEPHRINE BITARTRATE 16,000 MCG in SODIUM CHLORIDE 484 ML IV SCH ×2 (00:45→13:49)
[2020-05-17] MEDS: MIDAZOLAM IN 0.9 % SOD.CHLORID 100 MG/100 ML PLAST..BAG IVPB SCH ×4 (00:57→21:39)
[2020-05-17] MEDS: MEROPENEM 1 GM in DEXTROSE 5%-WATER 100 ML IVPB SCH ×3 (01:00→18:45)
[2020-05-17] MEDS: HEPARIN NA (PORCINE) 5,000 UNITS/ML 1ML VIAL SQ SCH ×3 (06:10→21:38)
[2020-05-17] MEDS: INSULIN SLIDING SCALE (NOVOLOG) 1 VIAL SQ SCH ×4 (06:10→21:38)
[2020-05-17] MEDS: INSULIN (LEVEMIR) 100 UNITS/ML UNITS SQ SCH ×2 (06:10→21:39)
[2020-05-17] MEDS: VANCOMYCIN 1,000 MG in DEXTROSE 5%-WATER - 250 ML IVPB SCH ×2 (06:11→20:15)
[2020-05-17 07:37] LABS: POTASSIUM 4.3 mmol/L (3.5-5.1)
[2020-05-17 07:39] LABS: BASO % 0.4 % (0-2.0); EOS % 0.6 % (0-4.5); HEMATOCRIT 25.9 % (35.4-49); HEMOGLOBIN 8.5 GM/dL (11.7-16.9); MCH 28.2 pg (25.7-33.7); MCHC 32.9 g/dl (32.0-35.9); MEAN CELL VOLUME 85.6 fl (80-96); MEAN PLT VOLUME 10.1 fl (7.5-11.1); MONO % 5.2 % (3.8-10.2); NEUT % 87.8 % (42.8-82.8); PLATELET COUNT 153 K/MM3 (134-434); RBC 3.02 M/mm3 (4.00-5.60); WHITE BLOOD COUNT 12.2 K/mm3 (4.0-10.0)
[2020-05-17 07:49] LABS: ALBUMIN 1.2 g/dl (3.4-5.0); BLOOD UREA NITROGEN 26.2 mg/dL (7-18); MAGNESIUM 1.7 mg/dL (1.8-2.4)
[2020-05-17 07:52] LABS: CREATININE 0.8 mg/dL (0.55-1.3); PHOSPHOROUS 2.7 mg/dL (2.5-4.9)
[2020-05-17 07:54] LABS: BILIRUBIN,TOTAL 0.5 mg/dL (0.2-1); TOT PROT 5.2 g/dl (6.4-8.2)
[2020-05-17] MEDS ORDERED: PT OWN MED DRAWER 7, Y5N ONE ×3 (07:57→20:26)
[2020-05-17 08:03] LABS: CALCIUM 6.3 mg/dL (8.5-10.1)
[2020-05-17] MEDS: AMINO ACIDS/PROTEIN HYDROLYS 30 ML LIQUID.PKT PO SCH ×2 (08:55→21:39)
[2020-05-17] MEDS: PANTOPRAZOLE SODIUM 40 MG VIAL IVPUSH SCH ×2 (09:27→21:38)
[2020-05-17] MEDS: AMIODARONE HCL 200 MG TABLET NGT SCH ×2 (09:27→21:38)
[2020-05-17] MEDS: THIAMINE HCL 200 MG/2 ML VIAL IVPB SCH (09:27)
[2020-05-17] MEDS: VECURONIUM BROMIDE 100 MG/100 ML BAG IVPB SCH (13:51)
[2020-05-17] MEDS: CASPOFUNGIN ACETATE 50 MG in SODIUM CHLORIDE 250 ML IVPB SCH (19:25)
[2020-05-17] MEDS: CHLORHEXIDINE GLUCONATE 4% CLEANSER FOR DECOLONIZATION TP SCH (21:40)
[2020-05-18] MEDS ORDERED: DEXTROSE 5%-WATER 100 ML IVPB ONE ×4 (00:46→20:17)
[2020-05-18] MEDS ORDERED: MEROPENEM 1 GM VIAL (RESTRICTED TO ID) IVPB ONE ×4 (00:46→20:17)
[2020-05-18] MEDS: PROPOFOL 1,000,000 MCG/100 ML VIAL IVPB SCH ×3 (01:51→22:17)
[2020-05-18] MEDS: MEROPENEM 1 GM in DEXTROSE 5%-WATER 100 ML IVPB SCH ×3 (02:00→17:40)
[2020-05-18] MEDS: INSULIN SLIDING SCALE (NOVOLOG) 1 VIAL SQ SCH ×4 (06:48→22:38)
[2020-05-18] MEDS: INSULIN (LEVEMIR) 100 UNITS/ML UNITS SQ SCH (06:48)
[2020-05-18] MEDS: HEPARIN NA (PORCINE) 5,000 UNITS/ML 1ML VIAL SQ SCH ×3 (06:52→22:15)
[2020-05-18] MEDS: VANCOMYCIN 1,000 MG in DEXTROSE 5%-WATER - 250 ML IVPB SCH ×2 (06:54→19:00)
[2020-05-18 07:30] LABS: BASO % 0.2 % (0-2.0); EOS % 0.8 % (0-4.5); HEMATOCRIT 25.3 % (35.4-49); HEMOGLOBIN 8.4 GM/dL (11.7-16.9); LYMPH % 6.5 % (8-40); MCH 28.2 pg (25.7-33.7); MCHC 33.4 g/dl (32.0-35.9); MEAN CELL VOLUME 84.5 fl (80-96); MEAN PLT VOLUME 10.1 fl (7.5-11.1); NEUT % 87.5 % (42.8-82.8); PLATELET COUNT 184 K/MM3 (134-434); RBC 2.99 M/mm3 (4.00-5.60); RDW 14.5 % (11.9-15.9); WHITE BLOOD COUNT 11.1 K/mm3 (4.0-10.0)
[2020-05-18 07:35] LABS: POTASSIUM 3.8 mmol/L (3.5-5.1)
[2020-05-18 07:44] LABS: ALBUMIN 1.2 g/dl (3.4-5.0)
[2020-05-18 07:45] LABS: BLOOD UREA NITROGEN 22.6 mg/dL (7-18); MAGNESIUM 1.9 mg/dL (1.8-2.4)
[2020-05-18 07:48] LABS: CREATININE 0.8 mg/dL (0.55-1.3); PHOSPHOROUS 3.5 mg/dL (2.5-4.9)
[2020-05-18 07:49] LABS: BILIRUBIN,TOTAL 0.4 mg/dL (0.2-1); TOT PROT 5.6 g/dl (6.4-8.2)
[2020-05-18] MEDS: PANTOPRAZOLE SODIUM 40 MG VIAL IVPUSH SCH ×2 (09:33→22:16)
[2020-05-18] MEDS: AMINO ACIDS/PROTEIN HYDROLYS 30 ML LIQUID.PKT PO SCH ×2 (09:33→17:36)
[2020-05-18] MEDS: AMIODARONE HCL 200 MG TABLET NGT SCH ×2 (09:34→22:15)
[2020-05-18] MEDS: THIAMINE HCL 200 MG/2 ML VIAL IVPB SCH (09:34)
[2020-05-18] MEDS: DEXMEDETOMIDINE IN 0.9 % NACL 400 MCG/100 ML VIAL IVPB SCH (12:49)
[2020-05-18] MEDS: NOREPINEPHRINE BITARTRATE 16,000 MCG in SODIUM CHLORIDE 484 ML IV SCH (12:49)
[2020-05-18] MEDS ORDERED: PT OWN MED DRAWER 7, Y5N ONE (17:28)
[2020-05-18] MEDS: CASPOFUNGIN ACETATE 50 MG in SODIUM CHLORIDE 250 ML IVPB SCH (17:36)
[2020-05-18] MEDS: CHLORHEXIDINE GLUCONATE 4% CLEANSER FOR DECOLONIZATION TP SCH (21:28)
[2020-05-18] MEDS: VECURONIUM BROMIDE 100 MG/100 ML BAG IVPB SCH (22:38)
[2020-05-19] MEDS ORDERED: DEXTROSE 5%-WATER 100 ML IVPB ONE ×3 (00:16→16:20)
[2020-05-19] MEDS ORDERED: MEROPENEM 1 GM VIAL (RESTRICTED TO ID) IVPB ONE ×3 (00:16→16:19)
[2020-05-19] MEDS: PROPOFOL 1,000,000 MCG/100 ML VIAL IVPB SCH ×3 (00:30→14:14)
[2020-05-19] MEDS: MEROPENEM 1 GM in DEXTROSE 5%-WATER 100 ML IVPB SCH ×3 (01:56→18:28)
[2020-05-19] MEDS: INSULIN SLIDING SCALE (NOVOLOG) 1 VIAL SQ SCH ×4 (06:27→22:06)
[2020-05-19] MEDS: HEPARIN NA (PORCINE) 5,000 UNITS/ML 1ML VIAL SQ SCH ×3 (06:27→22:07)
[2020-05-19] MEDS: VANCOMYCIN 1,000 MG in DEXTROSE 5%-WATER - 250 ML IVPB SCH ×2 (06:28→19:14)
[2020-05-19 07:35] LABS: HEMATOCRIT 24.4 % (35.4-49); HEMOGLOBIN 8.2 GM/dL (11.7-16.9); MCH 28.6 pg (25.7-33.7); MCHC 33.5 g/dl (32.0-35.9); MEAN CELL VOLUME 85.4 fl (80-96); MEAN PLT VOLUME 9.6 fl (7.5-11.1); PLATELET COUNT 221 K/MM3 (134-434); RBC 2.85 M/mm3 (4.00-5.60); RDW 14.6 % (11.9-15.9); WHITE BLOOD COUNT 10.7 K/mm3 (4.0-10.0)
[2020-05-19 08:06] LABS: POTASSIUM 4.2 mmol/L (3.5-5.1)
[2020-05-19 08:09] LABS: ALBUMIN 1.2 g/dl (3.4-5.0); BLOOD UREA NITROGEN 19.9 mg/dL (7-18)
[2020-05-19 08:12] LABS: CREATININE 0.8 mg/dL (0.55-1.3); PHOSPHOROUS 3.3 mg/dL (2.5-4.9)
[2020-05-19 08:14] LABS: BILIRUBIN,TOTAL 0.4 mg/dL (0.2-1); TOT PROT 5.6 g/dl (6.4-8.2)
[2020-05-19 08:22] LABS: CALCIUM 6.9 mg/dL (8.5-10.1)
[2020-05-19] MEDS: AMIODARONE HCL 200 MG TABLET NGT SCH ×2 (09:27→22:06)
[2020-05-19] MEDS: AMINO ACIDS/PROTEIN HYDROLYS 30 ML LIQUID.PKT PO SCH ×2 (09:27→16:47)
[2020-05-19] MEDS: PANTOPRAZOLE SODIUM 40 MG VIAL IVPUSH SCH ×2 (09:27→22:06)
[2020-05-19] MEDS: THIAMINE HCL 200 MG/2 ML VIAL IVPB SCH (09:28)
[2020-05-19] MEDS: NOREPINEPHRINE BITARTRATE 16,000 MCG in SODIUM CHLORIDE 484 ML IV SCH (11:06)
[2020-05-19] MEDS: DEXMEDETOMIDINE IN 0.9 % NACL 400 MCG/100 ML VIAL IVPB SCH (11:07)
[2020-05-19] MEDS ORDERED: PT OWN MED DRAWER 7, Y5N ONE (16:20)
[2020-05-19] MEDS: ACETAMINOPHEN 1000 MG/100 ML VIAL (NON FORMULARY) IVPB PRN (16:48)
[2020-05-19] MEDS: CASPOFUNGIN ACETATE 50 MG in SODIUM CHLORIDE 250 ML IVPB SCH (18:28)
[2020-05-19] MEDS: CHLORHEXIDINE GLUCONATE 4% CLEANSER FOR DECOLONIZATION TP SCH (22:07)
[2020-05-19] MEDS ORDERED: NOREPINEPHRINE NS PREMIX 16,000 MCG/500 ML BAG IVPB SCH (23:51)
[2020-05-20] MEDS ORDERED: DEXTROSE 5%-WATER 100 ML IVPB ONE ×3 (02:30→16:49)
[2020-05-20] MEDS ORDERED: MEROPENEM 1 GM VIAL (RESTRICTED TO ID) IVPB ONE ×3 (02:30→16:49)
[2020-05-20] MEDS: MEROPENEM 1 GM in DEXTROSE 5%-WATER 100 ML IVPB SCH ×3 (02:34→17:13)
[2020-05-20] MEDS: ACETAMINOPHEN 1000 MG/100 ML VIAL (NON FORMULARY) IVPB PRN ×2 (02:43→16:43)
[2020-05-20] MEDS: HEPARIN NA (PORCINE) 5,000 UNITS/ML 1ML VIAL SQ SCH (06:05)
[2020-05-20] MEDS: INSULIN SLIDING SCALE (NOVOLOG) 1 VIAL SQ SCH ×4 (06:05→22:00)
[2020-05-20] MEDS: VANCOMYCIN 1,000 MG in DEXTROSE 5%-WATER - 250 ML IVPB SCH (06:06)
[2020-05-20 07:35] LABS: POTASSIUM 4.1 mmol/L (3.5-5.1)
[2020-05-20 07:35] LABS: HEMATOCRIT 22.8 % (35.4-49); HEMOGLOBIN 7.6 GM/dL (11.7-16.9); MCH 28.3 pg (25.7-33.7); MCHC 33.3 g/dl (32.0-35.9); MEAN CELL VOLUME 85.1 fl (80-96); MEAN PLT VOLUME 9.2 fl (7.5-11.1); PLATELET COUNT 257 K/MM3 (134-434); RBC 2.68 M/mm3 (4.00-5.60); RDW 14.3 % (11.9-15.9); WHITE BLOOD COUNT 11.3 K/mm3 (4.0-10.0)
[2020-05-20 07:44] LABS: ALBUMIN 1.4 g/dl (3.4-5.0); BLOOD UREA NITROGEN 21.2 mg/dL (7-18); CALCIUM 7.1 mg/dL (8.5-10.1)
[2020-05-20 07:48] LABS: CREATININE 0.8 mg/dL (0.55-1.3)
[2020-05-20 07:49] LABS: BILIRUBIN,TOTAL 0.6 mg/dL (0.2-1); TOT PROT 5.8 g/dl (6.4-8.2)
[2020-05-20] MEDS: PANTOPRAZOLE SODIUM 40 MG VIAL IVPUSH SCH ×2 (09:07→21:59)
[2020-05-20] MEDS: AMIODARONE HCL 200 MG TABLET NGT SCH ×2 (09:07→21:59)
[2020-05-20] MEDS: AMINO ACIDS/PROTEIN HYDROLYS 30 ML LIQUID.PKT PO SCH ×2 (09:08→16:43)
[2020-05-20] MEDS: THIAMINE HCL 200 MG/2 ML VIAL IVPB SCH (09:08)
[2020-05-20] MEDS ORDERED: PT OWN MED DRAWER 7, Y5N ONE ×2 (16:48→16:52)
[2020-05-20] MEDS: CHLORHEXIDINE GLUCONATE 4% CLEANSER FOR DECOLONIZATION TP SCH (22:01)
[2020-05-21] MEDS: ACETAMINOPHEN 1000 MG/100 ML VIAL (NON FORMULARY) IVPB PRN ×2 (00:22→09:09)
[2020-05-21] MEDS: INSULIN SLIDING SCALE (NOVOLOG) 1 VIAL SQ SCH ×4 (06:37→22:54)
[2020-05-21] MEDS ORDERED: MEROPENEM 1 GM VIAL (RESTRICTED TO ID) IVPB ONE ×2 (08:30→16:30)
[2020-05-21] MEDS ORDERED: DEXTROSE 5%-WATER 100 ML IVPB ONE ×2 (08:31→16:30)
[2020-05-21] MEDS: THIAMINE HCL 200 MG/2 ML VIAL IVPB SCH (09:15)
[2020-05-21] MEDS: AMINO ACIDS/PROTEIN HYDROLYS 30 ML LIQUID.PKT PO SCH ×2 (09:15→17:00)
[2020-05-21] MEDS: MEROPENEM 1 GM in DEXTROSE 5%-WATER 100 ML IVPB SCH ×3 (09:15→17:38)
[2020-05-21] MEDS: PANTOPRAZOLE SODIUM 40 MG VIAL IVPUSH SCH ×2 (09:15→21:43)
[2020-05-21 09:53] LABS: HEMATOCRIT 21.7 % (35.4-49); HEMOGLOBIN 7.1 GM/dL (11.7-16.9); MCH 28.4 pg (25.7-33.7); MCHC 32.9 g/dl (32.0-35.9); MEAN CELL VOLUME 86.2 fl (80-96); MEAN PLT VOLUME 9.3 fl (7.5-11.1); PLATELET COUNT 282 K/MM3 (134-434); RBC 2.52 M/mm3 (4.00-5.60); RDW 14.3 % (11.9-15.9)
[2020-05-21 10:11] LABS: POTASSIUM 4.1 mmol/L (3.5-5.1)
[2020-05-21 10:12] LABS: CALCIUM 7.4 mg/dL (8.5-10.1)
[2020-05-21 10:13] LABS: ALBUMIN 1.4 g/dl (3.4-5.0); BLOOD UREA NITROGEN 27.8 mg/dL (7-18); MAGNESIUM 2.1 mg/dL (1.8-2.4)
[2020-05-21 10:16] LABS: PHOSPHOROUS 2.6 mg/dL (2.5-4.9)
[2020-05-21 10:17] LABS: BILIRUBIN,TOTAL 0.5 mg/dL (0.2-1)
[2020-05-21] MEDS: AMIODARONE HCL 200 MG TABLET NGT SCH ×2 (10:35→21:44)
[2020-05-21] MEDS ORDERED: MIDAZOLAM 100 MG/100 ML MG IVPB ONE (12:30)
[2020-05-21] MEDS ORDERED: LOPERAMIDE HCL 1 MG/5 ML UNIT DOSE CUP PO ONE (12:33)
[2020-05-21] MEDS ORDERED: LOPERAMIDE HCL 1 MG/7.5 ML LIQUID PO ONE (13:15)
[2020-05-21] MEDS: BANATROL PLUS POWDER PACKET PO SCH ×2 (13:58→21:43)
[2020-05-21] MEDS ORDERED: PT OWN MED DRAWER 7, Y5N ONE ×2 (16:31→17:49)
[2020-05-21] MEDS: CASPOFUNGIN ACETATE 50 MG in SODIUM CHLORIDE 250 ML IVPB SCH (17:51)
[2020-05-21] MEDS: CHLORHEXIDINE GLUCONATE 4% CLEANSER FOR DECOLONIZATION TP SCH (21:44)
[2020-05-22] MEDS ORDERED: MEROPENEM 1 GM VIAL (RESTRICTED TO ID) IVPB ONE ×2 (01:21→09:53)
[2020-05-22] MEDS ORDERED: DEXTROSE 5%-WATER 100 ML IVPB ONE ×2 (01:21→09:53)
[2020-05-22] MEDS: MEROPENEM 1 GM in DEXTROSE 5%-WATER 100 ML IVPB SCH ×2 (01:32→09:58)
[2020-05-22] MEDS: BANATROL PLUS POWDER PACKET PO SCH ×3 (06:49→21:41)
[2020-05-22] MEDS: INSULIN SLIDING SCALE (NOVOLOG) 1 VIAL SQ SCH ×4 (07:02→21:55)
[2020-05-22 07:04] LABS: MCH 28.4 pg (25.7-33.7); MCHC 32.8 g/dl (32.0-35.9); MEAN CELL VOLUME 86.7 fl (80-96); PLATELET COUNT 251 K/MM3 (134-434); RBC 2.42 M/mm3 (4.00-5.60); RDW 14.5 % (11.9-15.9); WHITE BLOOD COUNT 7.8 K/mm3 (4.0-10.0)
[2020-05-22 07:10] LABS: HEMOGLOBIN 6.9 GM/dL (11.7-16.9)
[2020-05-22 07:21] LABS: POTASSIUM 3.8 mmol/L (3.5-5.1)
[2020-05-22 07:25] LABS: ALBUMIN 1.4 g/dl (3.4-5.0); MAGNESIUM 1.8 mg/dL (1.8-2.4)
[2020-05-22 07:28] LABS: CREATININE 0.8 mg/dL (0.55-1.3); PHOSPHOROUS 3.2 mg/dL (2.5-4.9)
[2020-05-22 07:29] LABS: BILIRUBIN,TOTAL 0.4 mg/dL (0.2-1)
[2020-05-22] MEDS: AMINO ACIDS/PROTEIN HYDROLYS 30 ML LIQUID.PKT PO SCH ×2 (09:57→17:42)
[2020-05-22] MEDS: PANTOPRAZOLE SODIUM 40 MG VIAL IVPUSH SCH ×2 (09:57→21:41)
[2020-05-22] MEDS: AMIODARONE HCL 200 MG TABLET NGT SCH ×2 (09:57→21:41)
[2020-05-22] MEDS: THIAMINE HCL 200 MG/2 ML VIAL IVPB SCH (09:57)
[2020-05-22] MEDS ORDERED: FUROSEMIDE 40 MG/4 ML INJECTABLE VIAL IVPUSH SCH (12:30)
[2020-05-22] MEDS ORDERED: ALBUMIN HUMAN 25% 12.5 GM/50 ML VIAL IVPB SCH (17:59)
[2020-05-22] MEDS ORDERED: FUROSEMIDE 40 MG/4 ML INJECTABLE VIAL IVPUSH ONE (18:00)
[2020-05-22] MEDS: ACETAMINOPHEN 1000 MG/100 ML VIAL (NON FORMULARY) IVPB PRN (19:30)
[2020-05-22] MEDS: CHLORHEXIDINE GLUCONATE 4% CLEANSER FOR DECOLONIZATION TP SCH (21:46)
[2020-05-23] MEDS: CASPOFUNGIN ACETATE 50 MG in SODIUM CHLORIDE 250 ML IVPB SCH ×2 (03:34→18:38)
[2020-05-23] MEDS: BANATROL PLUS POWDER PACKET PO SCH ×3 (06:00→21:42)
[2020-05-23] MEDS: INSULIN SLIDING SCALE (NOVOLOG) 1 VIAL SQ SCH ×4 (07:40→21:53)
[2020-05-23 07:41] LABS: HEMATOCRIT 28.3 % (35.4-49); HEMOGLOBIN 9.6 GM/dL (11.7-16.9); MCHC 33.9 g/dl (32.0-35.9); MEAN CELL VOLUME 85.5 fl (80-96); PLATELET COUNT 239 K/MM3 (134-434); RBC 3.31 M/mm3 (4.00-5.60); RDW 14.5 % (11.9-15.9); WHITE BLOOD COUNT 9.4 K/mm3 (4.0-10.0)
[2020-05-23 08:09] LABS: POTASSIUM 3.3 mmol/L (3.5-5.1)
[2020-05-23 08:13] LABS: ALBUMIN 1.7 g/dl (3.4-5.0); BLOOD UREA NITROGEN 30.8 mg/dL (7-18); CALCIUM 7.1 mg/dL (8.5-10.1); MAGNESIUM 1.8 mg/dL (1.8-2.4)
[2020-05-23 08:16] LABS: CREATININE 0.8 mg/dL (0.55-1.3); PHOSPHOROUS 2.9 mg/dL (2.5-4.9)
[2020-05-23 08:18] LABS: BILIRUBIN,TOTAL 0.5 mg/dL (0.2-1); TOT PROT 6.2 g/dl (6.4-8.2)
[2020-05-23] MEDS ORDERED: POTASSIUM CHLORIDE ORAL LIQUID 20 MEQ/15 ML PO ONE (09:00)
[2020-05-23] MEDS: PANTOPRAZOLE SODIUM 40 MG VIAL IVPUSH SCH ×2 (09:57→21:42)
[2020-05-23] MEDS: THIAMINE HCL 200 MG/2 ML VIAL IVPB SCH (09:57)
[2020-05-23] MEDS: AMIODARONE HCL 200 MG TABLET NGT SCH ×2 (09:58→21:42)
[2020-05-23] MEDS ORDERED: PT OWN MED DRAWER 7, Y5N ONE ×3 (12:52→18:36)
[2020-05-23] MEDS: ENOXAPARIN NA (PORCINE) 40 MG/0.4 ML DISP.SYRIN SQ SCH (14:48)
[2020-05-23] MEDS: ALBUMIN HUMAN 25% 12.5 GM/50 ML VIAL IVPB SCH ×2 (15:16→22:32)
[2020-05-23] MEDS: ACETAMINOPHEN 1000 MG/100 ML VIAL (NON FORMULARY) IVPB PRN (15:25)
[2020-05-23] MEDS: FUROSEMIDE 40 MG/4 ML INJECTABLE VIAL IVPUSH SCH (16:05)
[2020-05-23] MEDS ORDERED: IBUPROFEN 800 MG/8 ML IJ IVPB ONE (20:54)
[2020-05-23] MEDS: CHLORHEXIDINE GLUCONATE 4% CLEANSER FOR DECOLONIZATION TP SCH (21:54)
[2020-05-24] MEDS: BANATROL PLUS POWDER PACKET PO SCH ×3 (05:13→21:22)
[2020-05-24] MEDS: FUROSEMIDE 40 MG/4 ML INJECTABLE VIAL IVPUSH SCH (06:00)
[2020-05-24] MEDS: INSULIN SLIDING SCALE (NOVOLOG) 1 VIAL SQ SCH ×4 (07:13→22:40)
[2020-05-24 07:41] LABS: INR 1.25 (0.83-1.09)
[2020-05-24 07:43] LABS: ACTIVATED PTT 20.5 SECONDS (25.2-36.5)
[2020-05-24 07:51] LABS: POTASSIUM 3.7 mmol/L (3.5-5.1)
[2020-05-24 08:10] LABS: CALCIUM 7.6 mg/dL (8.5-10.1)
[2020-05-24 08:11] LABS: ALBUMIN 2.1 g/dl (3.4-5.0); BLOOD UREA NITROGEN 29.4 mg/dL (7-18); MAGNESIUM 1.9 mg/dL (1.8-2.4)
[2020-05-24 08:14] LABS: CREATININE 0.8 mg/dL (0.55-1.3)
[2020-05-24 08:15] LABS: BILIRUBIN,TOTAL 1.4 mg/dL (0.2-1); TOT PROT 6.6 g/dl (6.4-8.2)
[2020-05-24] MEDS ORDERED: PT OWN MED DRAWER 7, Y5N ONE ×3 (09:10→17:38)
[2020-05-24] MEDS: PANTOPRAZOLE SODIUM 40 MG VIAL IVPUSH SCH ×2 (09:11→22:40)
[2020-05-24] MEDS: ENOXAPARIN NA (PORCINE) 40 MG/0.4 ML DISP.SYRIN SQ SCH ×2 (09:12→10:00)
[2020-05-24] MEDS: THIAMINE HCL 200 MG/2 ML VIAL IVPB SCH (09:12)
[2020-05-24] MEDS: AMIODARONE HCL 200 MG TABLET NGT SCH (09:12)
[2020-05-24] MEDS: ALBUMIN HUMAN 25% 12.5 GM/50 ML VIAL IVPB SCH ×2 (09:13→22:37)
[2020-05-24 12:06] LABS: BASO % 0.3 % (0-2.0); EOS % 1.7 % (0-4.5); HEMATOCRIT 28.9 % (35.4-49); HEMOGLOBIN 9.8 GM/dL (11.7-16.9); MCH 29.1 pg (25.7-33.7); MCHC 33.9 g/dl (32.0-35.9); MEAN PLT VOLUME 8.8 fl (7.5-11.1); PLATELET COUNT 220 K/MM3 (134-434); RBC 3.36 M/mm3 (4.00-5.60); RDW 14.4 % (11.9-15.9); WHITE BLOOD COUNT 10.3 K/mm3 (4.0-10.0)
[2020-05-24] MEDS: ACETAMINOPHEN 1000 MG/100 ML VIAL (NON FORMULARY) IVPB PRN ×2 (12:46→19:49)
[2020-05-24] MEDS ORDERED: PROPOFOL 200 MG/20 ML VIAL IVPUSH ONE (12:51)
[2020-05-24] MEDS ORDERED: ROCURONIUM BROMIDE 50 MG/5 ML VIAL IV ONE (12:52)
[2020-05-24] MEDS ORDERED: ROCURONIUM BROMIDE 100 MG/10 ML VIAL ONE (13:08)
[2020-05-24] MEDS ORDERED: PROPOFOL 1,000,000 MCG/100 ML VIAL ONE (13:09)
[2020-05-24 15:03] LABS: BASO % 0.4 % (0-2.0); EOS % 1.6 % (0-4.5); HEMATOCRIT 28.5 % (35.4-49); HEMOGLOBIN 9.6 GM/dL (11.7-16.9); LYMPH % 10.4 % (8-40); MCH 29.1 pg (25.7-33.7); MCHC 33.8 g/dl (32.0-35.9); MEAN CELL VOLUME 86.1 fl (80-96); MEAN PLT VOLUME 8.6 fl (7.5-11.1); MONO % 5.8 % (3.8-10.2); NEUT % 81.8 % (42.8-82.8); PLATELET COUNT 201 K/MM3 (134-434); RBC 3.31 M/mm3 (4.00-5.60); RDW 14.5 % (11.9-15.9); WHITE BLOOD COUNT 9.2 K/mm3 (4.0-10.0)
[2020-05-24] MEDS ORDERED: HYDROmorphone HCl 2 MG/ML VIAL IVPUSH ONE (15:30)
[2020-05-24] MEDS ORDERED: HYDROmorphone HCl 2 MG/ML VIAL ONE (15:31)
[2020-05-24] MEDS: CASPOFUNGIN ACETATE 50 MG in SODIUM CHLORIDE 250 ML IVPB SCH (18:57)
[2020-05-24] MEDS: CHLORHEXIDINE GLUCONATE 4% CLEANSER FOR DECOLONIZATION TP SCH (21:23)
[2020-05-24] MEDS: METOPROLOL TARTRATE 25 MG TABLET (FP) NGT SCH (23:29)
[2020-05-25] MEDS: BANATROL PLUS POWDER PACKET PO SCH ×3 (05:50→22:02)
[2020-05-25] MEDS: INSULIN SLIDING SCALE (NOVOLOG) 1 VIAL SQ SCH ×4 (06:02→22:02)
[2020-05-25] MEDS ORDERED: PT OWN MED DRAWER 7, Y5N ONE ×4 (07:01→18:10)
[2020-05-25 07:14] LABS: POTASSIUM 3.9 mmol/L (3.5-5.1)
[2020-05-25 07:20] LABS: ALBUMIN 2.4 g/dl (3.4-5.0); BLOOD UREA NITROGEN 31.1 mg/dL (7-18); CALCIUM 7.8 mg/dL (8.5-10.1)
[2020-05-25 07:21] LABS: MAGNESIUM 1.8 mg/dL (1.8-2.4)
[2020-05-25 07:24] LABS: CREATININE 0.9 mg/dL (0.55-1.3); PHOSPHOROUS 3.2 mg/dL (2.5-4.9)
[2020-05-25 07:25] LABS: BILIRUBIN,TOTAL 0.9 mg/dL (0.2-1); TOT PROT 6.6 g/dl (6.4-8.2)
[2020-05-25] MEDS: THIAMINE HCL 200 MG/2 ML VIAL IVPB SCH (09:12)
[2020-05-25] MEDS: FUROSEMIDE 40 MG/4 ML INJECTABLE VIAL IVPUSH SCH (09:13)
[2020-05-25] MEDS: ACETAMINOPHEN 1000 MG/100 ML VIAL (NON FORMULARY) IVPB PRN ×3 (09:13→22:30)
[2020-05-25] MEDS: METOPROLOL TARTRATE 25 MG TABLET (FP) NGT SCH ×2 (09:13→22:02)
[2020-05-25] MEDS: PANTOPRAZOLE SODIUM 40 MG VIAL IVPUSH SCH ×2 (09:13→22:03)
[2020-05-25] MEDS: ENOXAPARIN NA (PORCINE) 40 MG/0.4 ML DISP.SYRIN SQ SCH (09:23)
[2020-05-25] MEDS: CASPOFUNGIN ACETATE 50 MG in SODIUM CHLORIDE 250 ML IVPB SCH (18:13)
[2020-05-25] MEDS: CHLORHEXIDINE GLUCONATE 4% CLEANSER FOR DECOLONIZATION TP SCH (22:02)
[2020-05-26] MEDS: BANATROL PLUS POWDER PACKET PO SCH ×3 (06:17→21:40)
[2020-05-26] MEDS: INSULIN SLIDING SCALE (NOVOLOG) 1 VIAL SQ SCH ×4 (06:18→21:35)
[2020-05-26 06:55] LABS: BASO % 0.5 % (0-2.0); EOS % 2.5 % (0-4.5); HEMATOCRIT 31.2 % (35.4-49); LYMPH % 8.7 % (8-40); MCH 28.8 pg (25.7-33.7); MEAN CELL VOLUME 89.8 fl (80-96); MEAN PLT VOLUME 9.7 fl (7.5-11.1); MONO % 5.6 % (3.8-10.2); NEUT % 82.7 % (42.8-82.8); PLATELET COUNT 90 K/MM3 (134-434); RBC 3.47 M/mm3 (4.00-5.60); RDW 15.7 % (11.9-15.9); WHITE BLOOD COUNT 10.3 K/mm3 (4.0-10.0)
[2020-05-26 07:16] LABS: POTASSIUM 3.4 mmol/L (3.5-5.1)
[2020-05-26 07:24] LABS: CALCIUM 7.7 mg/dL (8.5-10.1)
[2020-05-26 07:25] LABS: BLOOD UREA NITROGEN 31.4 mg/dL (7-18); MAGNESIUM 2.2 mg/dL (1.8-2.4)
[2020-05-26 07:28] LABS: CREATININE 0.8 mg/dL (0.55-1.3); PHOSPHOROUS 3.2 mg/dL (2.5-4.9)
[2020-05-26] MEDS: THIAMINE HCL 200 MG/2 ML VIAL IVPB SCH (10:26)
[2020-05-26] MEDS: FUROSEMIDE 40 MG/4 ML INJECTABLE VIAL IVPUSH SCH (10:26)
[2020-05-26] MEDS: PANTOPRAZOLE SODIUM 40 MG VIAL IVPUSH SCH ×2 (10:26→21:36)
[2020-05-26] MEDS: METOPROLOL TARTRATE 25 MG TABLET (FP) NGT SCH ×2 (10:27→21:35)
[2020-05-26] MEDS: ENOXAPARIN NA (PORCINE) 40 MG/0.4 ML DISP.SYRIN SQ SCH (10:27)
[2020-05-26] MEDS: ACETAMINOPHEN 1000 MG/100 ML VIAL (NON FORMULARY) IVPB PRN (17:57)
[2020-05-26] MEDS ORDERED: PT OWN MED DRAWER 7, Y5N ONE (18:00)
[2020-05-26] MEDS: CASPOFUNGIN ACETATE 50 MG in SODIUM CHLORIDE 250 ML IVPB SCH (18:03)
[2020-05-26] MEDS: CHLORHEXIDINE GLUCONATE 4% CLEANSER FOR DECOLONIZATION TP SCH (21:34)
[2020-05-26] MEDS: POTASSIUM CHLORIDE ORAL LIQUID 20 MEQ/15 ML PO SCH (21:36)
[2020-05-27] MEDS: BANATROL PLUS POWDER PACKET PO SCH ×3 (05:29→22:18)
[2020-05-27] MEDS: INSULIN SLIDING SCALE (NOVOLOG) 1 VIAL SQ SCH ×4 (06:09→22:22)
[2020-05-27 06:57] LABS: BASO % 0.5 % (0-2.0); EOS % 3.5 % (0-4.5); HEMATOCRIT 28.1 % (35.4-49); HEMOGLOBIN 9.4 GM/dL (11.7-16.9); LYMPH % 13.1 % (8-40); MCH 29.2 pg (25.7-33.7); MCHC 33.4 g/dl (32.0-35.9); MEAN CELL VOLUME 87.5 fl (80-96); MEAN PLT VOLUME 9.6 fl (7.5-11.1); MONO % 7.3 % (3.8-10.2); NEUT % 75.6 % (42.8-82.8); PLATELET COUNT 193 K/MM3 (134-434); RBC 3.21 M/mm3 (4.00-5.60); RDW 15.3 % (11.9-15.9); WHITE BLOOD COUNT 8.2 K/mm3 (4.0-10.0)
[2020-05-27 07:32] LABS: POTASSIUM 4.1 mmol/L (3.5-5.1)
[2020-05-27 07:35] LABS: CALCIUM 7.5 mg/dL (8.5-10.1)
[2020-05-27 07:36] LABS: BLOOD UREA NITROGEN 38.7 mg/dL (7-18); MAGNESIUM 2.2 mg/dL (1.8-2.4)
[2020-05-27 07:37] LABS: BILIRUBIN,TOTAL 0.4 mg/dL (0.2-1); TOT PROT 6.7 g/dl (6.4-8.2)
[2020-05-27 07:39] LABS: CREATININE 0.9 mg/dL (0.55-1.3); PHOSPHOROUS 3.1 mg/dL (2.5-4.9)
[2020-05-27] MEDS: METOPROLOL TARTRATE 25 MG TABLET (FP) NGT SCH ×2 (10:13→22:19)
[2020-05-27] MEDS: POTASSIUM CHLORIDE ORAL LIQUID 20 MEQ/15 ML PO SCH ×2 (10:13→22:22)
[2020-05-27] MEDS: ENOXAPARIN NA (PORCINE) 40 MG/0.4 ML DISP.SYRIN SQ SCH (10:13)
[2020-05-27] MEDS: PANTOPRAZOLE SODIUM 40 MG VIAL IVPUSH SCH ×2 (10:13→22:23)
[2020-05-27] MEDS: FUROSEMIDE 40 MG/4 ML INJECTABLE VIAL IVPUSH SCH (10:13)
[2020-05-27] MEDS: THIAMINE HCL 200 MG/2 ML VIAL IVPB SCH (10:13)
[2020-05-27] MEDS: ACETAMINOPHEN 1000 MG/100 ML VIAL (NON FORMULARY) IVPB PRN (12:20)
[2020-05-27] MEDS: CASPOFUNGIN ACETATE 50 MG in SODIUM CHLORIDE 250 ML IVPB SCH (17:00)
[2020-05-27] MEDS ORDERED: PT OWN MED DRAWER 7, Y5N ONE (17:05)
[2020-05-27] MEDS ORDERED: DEXTROSE 5%-WATER 100 ML IVPB ONE ×2 (18:07→23:49)
[2020-05-27] MEDS ORDERED: PIPERACILLIN/TAZOBACTAM 4.5 GM VIAL IVPB ONE ×2 (18:07→23:48)
[2020-05-27] MEDS: PIPERACILLIN/TAZOB 4.5 GM 4.5 GM in DEXTROSE 5%-WATER 100 ML IVPB SCH (18:08)
[2020-05-27] MEDS: CHLORHEXIDINE GLUCONATE 4% CLEANSER FOR DECOLONIZATION TP SCH (22:18)
[2020-05-28] MEDS: PIPERACILLIN/TAZOB 4.5 GM 4.5 GM in DEXTROSE 5%-WATER 100 ML IVPB SCH ×3 (01:17→16:59)
[2020-05-28] MEDS: BANATROL PLUS POWDER PACKET PO SCH ×3 (05:47→21:13)
[2020-05-28] MEDS: INSULIN SLIDING SCALE (NOVOLOG) 1 VIAL SQ SCH ×4 (06:08→21:13)
[2020-05-28 07:10] LABS: BASO % 0.5 % (0-2.0); EOS % 3.3 % (0-4.5); HEMOGLOBIN 8.7 GM/dL (11.7-16.9); LYMPH % 14.9 % (8-40); MCH 28.5 pg (25.7-33.7); MCHC 32.2 g/dl (32.0-35.9); MEAN CELL VOLUME 88.3 fl (80-96); MEAN PLT VOLUME 9.8 fl (7.5-11.1); MONO % 7.5 % (3.8-10.2); NEUT % 73.8 % (42.8-82.8); PLATELET COUNT 199 K/MM3 (134-434); RBC 3.06 M/mm3 (4.00-5.60); RDW 15.2 % (11.9-15.9); WHITE BLOOD COUNT 7.3 K/mm3 (4.0-10.0)
[2020-05-28 07:28] LABS: POTASSIUM 4.5 mmol/L (3.5-5.1)
[2020-05-28 07:31] LABS: CALCIUM 7.4 mg/dL (8.5-10.1)
[2020-05-28 07:32] LABS: BLOOD UREA NITROGEN 35.9 mg/dL (7-18); MAGNESIUM 2.2 mg/dL (1.8-2.4)
[2020-05-28 07:37] LABS: TOT PROT 6.7 g/dl (6.4-8.2)
[2020-05-28] MEDS ORDERED: DEXTROSE 5%-WATER 100 ML IVPB ONE ×3 (09:19→20:44)
[2020-05-28] MEDS ORDERED: PIPERACILLIN/TAZOBACTAM 4.5 GM VIAL IVPB ONE ×3 (09:19→20:44)
[2020-05-28] MEDS: METOPROLOL TARTRATE 25 MG TABLET (FP) NGT SCH ×2 (09:30→21:13)
[2020-05-28] MEDS: FUROSEMIDE 40 MG/4 ML INJECTABLE VIAL IVPUSH SCH (09:30)
[2020-05-28] MEDS: POTASSIUM CHLORIDE ORAL LIQUID 20 MEQ/15 ML PO SCH ×2 (09:30→21:13)
[2020-05-28] MEDS: PANTOPRAZOLE SODIUM 40 MG VIAL IVPUSH SCH ×2 (09:31→21:13)
[2020-05-28] MEDS: THIAMINE HCL 200 MG/2 ML VIAL IVPB SCH (09:31)
[2020-05-28] MEDS ORDERED: PT OWN MED DRAWER 7, Y5N ONE (20:43)
[2020-05-28] MEDS: CASPOFUNGIN ACETATE 50 MG in SODIUM CHLORIDE 250 ML IVPB SCH (21:13)
[2020-05-28] MEDS: CHLORHEXIDINE GLUCONATE 4% CLEANSER FOR DECOLONIZATION TP SCH (21:13)
[2020-05-29] MEDS: PIPERACILLIN/TAZOB 4.5 GM 4.5 GM in DEXTROSE 5%-WATER 100 ML IVPB SCH ×3 (02:05→17:49)
[2020-05-29] MEDS: ACETAMINOPHEN 1000 MG/100 ML VIAL (NON FORMULARY) IVPB PRN ×2 (04:40→23:32)
[2020-05-29] MEDS ORDERED: METOPROLOL TARTRATE 5 MG/5 ML VIAL IVPUSH PRN (04:55)
[2020-05-29] MEDS ORDERED: ACETAMINOPHEN 1000 MG/100 ML VIAL (NON FORMULARY) IVPB PRN (04:55)
[2020-05-29] MEDS ORDERED: OCULAR LUBRICANT OPHTHALMIC OINTMENT 7 GM TUBE OU PRN (04:55)
[2020-05-29] MEDS ORDERED: ALBUTEROL SO4 HFA INHALER IH PRN (04:55)
[2020-05-29] MEDS: BANATROL PLUS POWDER PACKET PO SCH ×3 (05:20→21:30)
[2020-05-29] MEDS: INSULIN SLIDING SCALE (NOVOLOG) 1 VIAL SQ SCH ×4 (06:26→21:37)
[2020-05-29 09:46] LABS: BASO % 0.5 % (0-2.0); EOS % 3.6 % (0-4.5); HEMATOCRIT 26.9 % (35.4-49); HEMOGLOBIN 8.9 GM/dL (11.7-16.9); LYMPH % 15.1 % (8-40); MCH 28.8 pg (25.7-33.7); MEAN CELL VOLUME 87.2 fl (80-96); MEAN PLT VOLUME 10.1 fl (7.5-11.1); MONO % 7.4 % (3.8-10.2); NEUT % 73.4 % (42.8-82.8); PLATELET COUNT 188 K/MM3 (134-434); RBC 3.09 M/mm3 (4.00-5.60); RDW 15.1 % (11.9-15.9); WHITE BLOOD COUNT 7.5 K/mm3 (4.0-10.0)
[2020-05-29] MEDS ORDERED: FUROSEMIDE 40 MG/4 ML INJECTABLE VIAL IVPUSH SCH (10:00)
[2020-05-29 10:10] LABS: POTASSIUM 4.3 mmol/L (3.5-5.1)
[2020-05-29] MEDS ORDERED: PIPERACILLIN/TAZOBACTAM 4.5 GM VIAL IVPB ONE ×2 (10:23→17:07)
[2020-05-29] MEDS ORDERED: DEXTROSE 5%-WATER 100 ML IVPB ONE ×2 (10:23→17:07)
[2020-05-29] MEDS: METOPROLOL TARTRATE 25 MG TABLET (FP) NGT SCH ×2 (10:29→21:28)
[2020-05-29] MEDS: ENOXAPARIN NA (PORCINE) 40 MG/0.4 ML DISP.SYRIN SQ SCH (10:29)
[2020-05-29] MEDS: PANTOPRAZOLE SODIUM 40 MG VIAL IVPUSH SCH ×2 (10:30→21:31)
[2020-05-29 10:48] LABS: ALBUMIN 2.1 g/dl (3.4-5.0); BLOOD UREA NITROGEN 37.7 mg/dL (7-18); CALCIUM 8.1 mg/dL (8.5-10.1); MAGNESIUM 2.4 mg/dL (1.8-2.4)
[2020-05-29 10:51] LABS: CREATININE 1.1 mg/dL (0.55-1.3)
[2020-05-29 10:52] LABS: BILIRUBIN,TOTAL 0.6 mg/dL (0.2-1)
[2020-05-29] MEDS ORDERED: PT OWN MED DRAWER 7, Y5N ONE ×3 (11:22→21:29)
[2020-05-29] MEDS: THIAMINE HCL 200 MG/2 ML VIAL IVPB SCH (11:49)
[2020-05-29] MEDS ORDERED: METOPROLOL TARTRATE 5 MG/5 ML VIAL IVPB PRN (13:09)
[2020-05-29] MEDS ORDERED: ACETAMINOPHEN 650 MG SUPP.RECT PR PRN (17:23)
[2020-05-29] MEDS: INSULIN (LEVEMIR) 100 UNITS/ML UNITS SQ SCH ×2 (17:46→21:26)
[2020-05-29] MEDS: CASPOFUNGIN ACETATE 50 MG in SODIUM CHLORIDE 250 ML IVPB SCH (18:39)
[2020-05-29 20:10] LABS: EPI CELLS 25 /uL (0-25.1); HYALINE CASTS 7 /uL (0-3.1); URINE APPEARANCE CLOUDY; URINE BACTERIA 76 /uL (0-1359); URINE BILIRUBIN NEGATIVE (NEGATIVE); URINE COLOR YELLOW; URINE GLUCOSE (UA) 2+ (NEGATIVE); URINE KETONE NEGATIVE (NEGATIVE); URINE LEUK ESTERASE 1+ (NEGATIVE); URINE NITRITE NEGATIVE (NEGATIVE); URINE PROTEIN 2+ (NEGATIVE); URINE UROBILINOGEN 0.2 mg/dL (0.2-1.0); URINE WBC 773 /uL (0-25.8)
[2020-05-29] MEDS: CHLORHEXIDINE GLUCONATE 4% CLEANSER FOR DECOLONIZATION TP SCH (21:31)
[2020-05-29 23:30] LABS: URINE RBC 874.1 /uL (0-23.9); YEAST RARE (NEGATIVE)
[2020-05-30] MEDS ORDERED: PIPERACILLIN/TAZOBACTAM 4.5 GM VIAL IVPB ONE ×2 (01:55→11:35)
[2020-05-30] MEDS ORDERED: DEXTROSE 5%-WATER 100 ML IVPB ONE ×3 (01:55→14:01)
[2020-05-30] MEDS: PIPERACILLIN/TAZOB 4.5 GM 4.5 GM in DEXTROSE 5%-WATER 100 ML IVPB SCH ×2 (01:58→11:42)
[2020-05-30] MEDS: ACETAMINOPHEN 1000 MG/100 ML VIAL (NON FORMULARY) IVPB PRN ×2 (06:12→16:12)
[2020-05-30] MEDS: BANATROL PLUS POWDER PACKET PO SCH ×3 (06:26→22:55)
[2020-05-30] MEDS: INSULIN (LEVEMIR) 100 UNITS/ML UNITS SQ SCH ×3 (07:56→23:29)
[2020-05-30] MEDS: INSULIN SLIDING SCALE (NOVOLOG) 1 VIAL SQ SCH ×4 (07:57→23:02)
[2020-05-30 09:14] LABS: BASO % 0.6 % (0-2.0); EOS % 2.1 % (0-4.5); HEMATOCRIT 29.6 % (35.4-49); HEMOGLOBIN 9.8 GM/dL (11.7-16.9); LYMPH % 15.3 % (8-40); MCH 28.6 pg (25.7-33.7); MCHC 33.1 g/dl (32.0-35.9); MEAN CELL VOLUME 86.4 fl (80-96); MEAN PLT VOLUME 9.9 fl (7.5-11.1); MONO % 8.4 % (3.8-10.2); NEUT % 73.6 % (42.8-82.8); PLATELET COUNT 242 K/MM3 (134-434); RBC 3.43 M/mm3 (4.00-5.60); WHITE BLOOD COUNT 8.9 K/mm3 (4.0-10.0)
[2020-05-30 09:25] LABS: POTASSIUM 4.7 mmol/L (3.5-5.1)
[2020-05-30 09:27] LABS: ALBUMIN 2.2 g/dl (3.4-5.0); CALCIUM 8.1 mg/dL (8.5-10.1)
[2020-05-30 09:28] LABS: BLOOD UREA NITROGEN 44.4 mg/dL (7-18); MAGNESIUM 2.4 mg/dL (1.8-2.4)
[2020-05-30 09:31] LABS: CREATININE 1.3 mg/dL (0.55-1.3)
[2020-05-30 09:32] LABS: BILIRUBIN,TOTAL 0.6 mg/dL (0.2-1); TOT PROT 7.9 g/dl (6.4-8.2)
[2020-05-30] MEDS ORDERED: FUROSEMIDE 40 MG/5 ML UNIT-DOSE CUP PO SCH (10:00)
[2020-05-30] MEDS: METOPROLOL TARTRATE 25 MG TABLET (FP) NGT SCH ×3 (11:42→23:23)
[2020-05-30] MEDS: ENOXAPARIN NA (PORCINE) 40 MG/0.4 ML DISP.SYRIN SQ SCH (11:42)
[2020-05-30] MEDS: PANTOPRAZOLE SODIUM 40 MG VIAL IVPUSH SCH ×2 (11:43→22:56)
[2020-05-30] MEDS: LACTOBACILLUS ACIDOPHILUS 1 TABLET PO SCH (11:43)
[2020-05-30] MEDS ORDERED: PT OWN MED DRAWER 7, Y5N ONE (11:49)
[2020-05-30] MEDS ORDERED: INSULIN (NOVOLOG) ASPART 100 UNITS/ML 10ML VIAL SQ ONE (12:51)
[2020-05-30] MEDS ORDERED: VANCOMYCIN 1 GM in D5W (PRE-DOCKED) 1,000 MG/250 ML IVPB SCH (13:15)
[2020-05-30] MEDS ORDERED: SODIUM CHLORIDE 1,000 ML IV SCH (13:15)
[2020-05-30] MEDS ORDERED: MEROPENEM 1 GM in DEXTROSE 5%-WATER 100 ML IVPB SCH (13:15)
[2020-05-30] MEDS ORDERED: MEROPENEM 1 GM VIAL (RESTRICTED TO ID) IVPB ONE (14:01)
[2020-05-30] MEDS: THIAMINE HCL 200 MG/2 ML VIAL IVPB SCH (14:42)
[2020-05-30] MEDS: MEROPENEM 1 GM in DEXTROSE 5%-WATER 100 ML IVPB SCH ×2 (16:41→17:28)
[2020-05-30] MEDS: VANCOMYCIN 1 GM in D5W (PRE-DOCKED) 1,000 MG/250 ML IVPB SCH (18:08)
[2020-05-30] MEDS ORDERED: SODIUM CHLORIDE 500 ML IV STA (19:09)
[2020-05-30] MEDS: CASPOFUNGIN ACETATE 50 MG in SODIUM CHLORIDE 250 ML IVPB SCH (21:09)
[2020-05-30] MEDS: CHLORHEXIDINE GLUCONATE 4% CLEANSER FOR DECOLONIZATION TP SCH (22:55)
[2020-05-30] MEDS ORDERED: SODIUM CHLORIDE 1,000 ML IV STA (23:18)
[2020-05-31] MEDS ORDERED: DEXTROSE 5%-WATER 100 ML IVPB ONE ×3 (01:07→17:59)
[2020-05-31] MEDS ORDERED: MEROPENEM 1 GM VIAL (RESTRICTED TO ID) IVPB ONE ×3 (01:07→17:58)
[2020-05-31] MEDS: MEROPENEM 1 GM in DEXTROSE 5%-WATER 100 ML IVPB SCH ×3 (01:10→19:03)
[2020-05-31] MEDS: SODIUM CHLORIDE 1,000 ML IV SCH ×2 (02:29→23:42)
[2020-05-31] MEDS ORDERED: ACETAMINOPHEN 1000 MG/100 ML VIAL (NON FORMULARY) IVPB ONE (02:45)
[2020-05-31] MEDS ORDERED: IBUPROFEN 800 MG/8 ML IJ IVPB ONE (05:30)
[2020-05-31] MEDS: BANATROL PLUS POWDER PACKET PO SCH ×3 (05:41→22:12)
[2020-05-31] MEDS: INSULIN SLIDING SCALE (NOVOLOG) 1 VIAL SQ SCH ×4 (06:02→22:56)
[2020-05-31] MEDS: INSULIN (LEVEMIR) 100 UNITS/ML UNITS SQ SCH ×2 (06:03→22:57)
[2020-05-31] MEDS ORDERED: PT OWN MED DRAWER 7, Y5N ONE ×5 (09:30→22:11)
[2020-05-31] MEDS: METOPROLOL TARTRATE 25 MG TABLET (FP) NGT SCH ×3 (09:41→22:56)
[2020-05-31] MEDS: PANTOPRAZOLE SODIUM 40 MG VIAL IVPUSH SCH ×2 (09:43→22:12)
[2020-05-31] MEDS: LACTOBACILLUS ACIDOPHILUS 1 TABLET PO SCH (09:43)
[2020-05-31] MEDS: ENOXAPARIN NA (PORCINE) 40 MG/0.4 ML DISP.SYRIN SQ SCH (09:45)
[2020-05-31 10:08] LABS: BASO % 0.5 % (0-2.0); EOS % 2.7 % (0-4.5); HEMATOCRIT 25.9 % (35.4-49); HEMOGLOBIN 8.4 GM/dL (11.7-16.9); LYMPH % 13.6 % (8-40); MCH 28.3 pg (25.7-33.7); MCHC 32.3 g/dl (32.0-35.9); MEAN CELL VOLUME 87.6 fl (80-96); MEAN PLT VOLUME 10.2 fl (7.5-11.1); MONO % 6.6 % (3.8-10.2); NEUT % 76.6 % (42.8-82.8); PLATELET COUNT 232 K/MM3 (134-434); RBC 2.96 M/mm3 (4.00-5.60); RDW 15.1 % (11.9-15.9); WHITE BLOOD COUNT 9.2 K/mm3 (4.0-10.0)
[2020-05-31 10:43] LABS: CALCIUM 7.7 mg/dL (8.5-10.1)
[2020-05-31 10:44] LABS: ALBUMIN 2.1 g/dl (3.4-5.0); MAGNESIUM 2.5 mg/dL (1.8-2.4)
[2020-05-31 10:46] LABS: CREATININE 1.2 mg/dL (0.55-1.3)
[2020-05-31 10:47] LABS: PHOSPHOROUS 3.7 mg/dL (2.5-4.9); TOT PROT 7.2 g/dl (6.4-8.2)
[2020-05-31 11:03] LABS: BILIRUBIN,TOTAL 0.4 mg/dL (0.2-1)
[2020-05-31] MEDS: THIAMINE HCL 200 MG/2 ML VIAL IVPB SCH (13:54)
[2020-05-31] MEDS: methylPREDNISolone NA SUCC 40 MG/1 ML VIAL IVPUSH SCH ×3 (13:54→23:08)
[2020-05-31] MEDS: VANCOMYCIN 1 GM in D5W (PRE-DOCKED) 1,000 MG/250 ML IVPB SCH (15:06)
[2020-05-31] MEDS: ALBUTEROL SO4 2.5/IPRATROPIUM 0.5 INH SOL 3 ML VIAL.NEB. NEB SCH ×2 (16:06→20:10)
[2020-05-31] MEDS ORDERED: ACETAMINOPHEN 1000 MG/100 ML VIAL (NON FORMULARY) IVPB PRN (17:47)
[2020-05-31] MEDS: CASPOFUNGIN ACETATE 50 MG in SODIUM CHLORIDE 250 ML IVPB SCH (20:40)
[2020-05-31] MEDS: CHLORHEXIDINE GLUCONATE 4% CLEANSER FOR DECOLONIZATION TP SCH (22:13)
[2020-06-01] MEDS ORDERED: ACETAMINOPHEN 1000 MG/100 ML VIAL (NON FORMULARY) IVPB PRN (00:42)
[2020-06-01] MEDS ORDERED: MEROPENEM 1 GM VIAL (RESTRICTED TO ID) IVPB ONE ×3 (00:52→17:01)
[2020-06-01] MEDS ORDERED: DEXTROSE 5%-WATER 100 ML IVPB ONE ×3 (00:52→17:02)
[2020-06-01] MEDS: MEROPENEM 1 GM in DEXTROSE 5%-WATER 100 ML IVPB SCH ×3 (01:00→17:34)
[2020-06-01] MEDS: SODIUM CHLORIDE 1,000 ML IV SCH ×2 (02:58→14:08)
[2020-06-01] MEDS: ALBUTEROL SO4 2.5/IPRATROPIUM 0.5 INH SOL 3 ML VIAL.NEB. NEB SCH ×6 (04:00→20:25)
[2020-06-01] MEDS: methylPREDNISolone NA SUCC 40 MG/1 ML VIAL IVPUSH SCH ×4 (05:19→23:38)
[2020-06-01] MEDS: BANATROL PLUS POWDER PACKET PO SCH ×3 (05:19→21:58)
[2020-06-01] MEDS: INSULIN (LEVEMIR) 100 UNITS/ML UNITS SQ SCH ×2 (06:01→21:18)
[2020-06-01] MEDS: INSULIN SLIDING SCALE (NOVOLOG) 1 VIAL SQ SCH ×4 (06:02→21:16)
[2020-06-01] MEDS: LACTOBACILLUS ACIDOPHILUS 1 TABLET PO SCH (10:08)
[2020-06-01] MEDS: METOPROLOL TARTRATE 25 MG TABLET (FP) NGT SCH ×2 (10:08→21:11)
[2020-06-01] MEDS: PANTOPRAZOLE SODIUM 40 MG VIAL IVPUSH SCH ×2 (10:09→21:11)
[2020-06-01] MEDS: ENOXAPARIN NA (PORCINE) 40 MG/0.4 ML DISP.SYRIN SQ SCH (10:09)
[2020-06-01] MEDS ORDERED: PT OWN MED DRAWER 7, Y5N ONE ×2 (11:05→21:08)
[2020-06-01] MEDS: THIAMINE HCL 200 MG/2 ML VIAL IVPB SCH (14:10)
[2020-06-01] MEDS: VANCOMYCIN 1 GM in D5W (PRE-DOCKED) 1,000 MG/250 ML IVPB SCH (14:28)
[2020-06-01] MEDS: CASPOFUNGIN ACETATE 50 MG in SODIUM CHLORIDE 250 ML IVPB SCH (19:00)
[2020-06-01] MEDS: ENOXAPARIN NA (PORCINE) 80 MG/0.8 ML DISP.SYRIN SQ SCH (21:10)
[2020-06-01] MEDS: CHLORHEXIDINE GLUCONATE 4% CLEANSER FOR DECOLONIZATION TP SCH (21:15)
[2020-06-02] MEDS: ALBUTEROL SO4 2.5/IPRATROPIUM 0.5 INH SOL 3 ML VIAL.NEB. NEB SCH ×6 (00:09→20:10)
[2020-06-02] MEDS ORDERED: MEROPENEM 1 GM VIAL (RESTRICTED TO ID) IVPB ONE ×3 (02:21→17:02)
[2020-06-02] MEDS ORDERED: DEXTROSE 5%-WATER 100 ML IVPB ONE ×3 (02:21→17:02)
[2020-06-02] MEDS: MEROPENEM 1 GM in DEXTROSE 5%-WATER 100 ML IVPB SCH ×3 (02:26→18:15)
[2020-06-02] MEDS: SODIUM CHLORIDE 1,000 ML IV SCH ×3 (03:28→23:30)
[2020-06-02] MEDS: ACETAMINOPHEN 1000 MG/100 ML VIAL (NON FORMULARY) IVPB PRN ×3 (05:32→19:24)
[2020-06-02] MEDS: BANATROL PLUS POWDER PACKET PO SCH ×3 (05:40→21:45)
[2020-06-02] MEDS: methylPREDNISolone NA SUCC 40 MG/1 ML VIAL IVPUSH SCH (06:09)
[2020-06-02] MEDS: INSULIN (LEVEMIR) 100 UNITS/ML UNITS SQ SCH ×2 (06:10→21:48)
[2020-06-02] MEDS: INSULIN SLIDING SCALE (NOVOLOG) 1 VIAL SQ SCH ×4 (06:11→21:47)
[2020-06-02] MEDS: ENOXAPARIN NA (PORCINE) 80 MG/0.8 ML DISP.SYRIN SQ SCH ×2 (10:34→22:25)
[2020-06-02] MEDS: PANTOPRAZOLE SODIUM 40 MG VIAL IVPUSH SCH (10:51)
[2020-06-02] MEDS: METOPROLOL TARTRATE 25 MG TABLET (FP) NGT SCH ×2 (10:51→21:45)
[2020-06-02] MEDS: LACTOBACILLUS ACIDOPHILUS 1 TABLET PO SCH (10:51)
[2020-06-02] MEDS: THIAMINE HCL 200 MG/2 ML VIAL IVPB SCH (10:54)
[2020-06-02 11:42] LABS: BASO % 0.2 % (0-2.0); HEMATOCRIT 25.9 % (35.4-49); HEMOGLOBIN 8.5 GM/dL (11.7-16.9); LYMPH % 4.2 % (8-40); MCHC 32.9 g/dl (32.0-35.9); MEAN CELL VOLUME 87.9 fl (80-96); MEAN PLT VOLUME 10.9 fl (7.5-11.1); MONO % 3.9 % (3.8-10.2); NEUT % 91.7 % (42.8-82.8); PLATELET COUNT 111 K/MM3 (134-434); POTASSIUM 4.3 mmol/L (3.5-5.1); RBC 2.95 M/mm3 (4.00-5.60); WHITE BLOOD COUNT 6.9 K/mm3 (4.0-10.0)
[2020-06-02 11:44] LABS: BLOOD UREA NITROGEN 41.1 mg/dL (7-18)
[2020-06-02 11:45] LABS: ALBUMIN 2.2 g/dl (3.4-5.0)
[2020-06-02 11:47] LABS: CREATININE 0.8 mg/dL (0.55-1.3)
[2020-06-02 11:49] LABS: BILIRUBIN,TOTAL 0.3 mg/dL (0.2-1)
[2020-06-02] MEDS: VANCOMYCIN 1 GM in D5W (PRE-DOCKED) 1,000 MG/250 ML IVPB SCH (12:09)
[2020-06-02 12:11] LABS: ANISOCYTOSIS 1+; MACROCYTOSIS 0; PLATELET ESTIMATE DECREASED
[2020-06-02] MEDS ORDERED: PT OWN MED DRAWER 7, Y5N ONE (12:52)
[2020-06-02] MEDS: PANTOPRAZOLE SODIUM 80 MG in SODIUM CHLORIDE 100 ML IVPB SCH ×2 (13:31→23:23)
[2020-06-02] MEDS: CASPOFUNGIN ACETATE 50 MG in SODIUM CHLORIDE 250 ML IVPB SCH (19:44)
[2020-06-02] MEDS: CHLORHEXIDINE GLUCONATE 4% CLEANSER FOR DECOLONIZATION TP SCH (21:48)
[2020-06-03] MEDS: ALBUTEROL SO4 2.5/IPRATROPIUM 0.5 INH SOL 3 ML VIAL.NEB. NEB SCH ×8 (00:55→23:59)
[2020-06-03] MEDS ORDERED: DEXTROSE 5%-WATER 100 ML IVPB ONE ×3 (03:03→17:22)
[2020-06-03] MEDS ORDERED: MEROPENEM 1 GM VIAL (RESTRICTED TO ID) IVPB ONE ×3 (03:03→17:22)
[2020-06-03] MEDS: MEROPENEM 1 GM in DEXTROSE 5%-WATER 100 ML IVPB SCH ×3 (03:05→17:57)
[2020-06-03] MEDS: SODIUM CHLORIDE 1,000 ML IV SCH ×2 (03:06→10:50)
[2020-06-03] MEDS: INSULIN SLIDING SCALE (NOVOLOG) 1 VIAL SQ SCH ×4 (06:27→21:59)
[2020-06-03] MEDS: INSULIN (LEVEMIR) 100 UNITS/ML UNITS SQ SCH ×2 (06:30→21:58)
[2020-06-03] MEDS: BANATROL PLUS POWDER PACKET PO SCH ×3 (06:37→21:59)
[2020-06-03 09:46] LABS: HEMATOCRIT 27.1 % (35.4-49); HEMOGLOBIN 8.9 GM/dL (11.7-16.9); LYMPH % 7.2 % (8-40); MCH 28.7 pg (25.7-33.7); MCHC 32.8 g/dl (32.0-35.9); MEAN CELL VOLUME 87.6 fl (80-96); MEAN PLT VOLUME 9.4 fl (7.5-11.1); MONO % 6.3 % (3.8-10.2); NEUT % 86.5 % (42.8-82.8); PLATELET COUNT 258 K/MM3 (134-434); RDW 14.9 % (11.9-15.9); WHITE BLOOD COUNT 9.2 K/mm3 (4.0-10.0)
[2020-06-03 09:51] LABS: INR 1.35 (0.83-1.09); PROTHROMBIN TIME (PATIENT) 16.2 SEC (9.7-13.0)
[2020-06-03 09:59] LABS: POTASSIUM 4.2 mmol/L (3.5-5.1)
[2020-06-03 10:18] LABS: ALBUMIN 2.2 g/dl (3.4-5.0); BLOOD UREA NITROGEN 35.8 mg/dL (7-18); CALCIUM 8.1 mg/dL (8.5-10.1)
[2020-06-03 10:21] LABS: CREATININE 0.7 mg/dL (0.55-1.3)
[2020-06-03 10:24] LABS: BILIRUBIN,TOTAL 0.4 mg/dL (0.2-1); TOT PROT 6.8 g/dl (6.4-8.2)
[2020-06-03] MEDS ORDERED: PT OWN MED DRAWER 7, Y5N ONE ×5 (10:30→22:45)
[2020-06-03] MEDS: PANTOPRAZOLE SODIUM 80 MG in SODIUM CHLORIDE 100 ML IVPB SCH ×2 (10:48→19:38)
[2020-06-03] MEDS: LACTOBACILLUS ACIDOPHILUS 1 TABLET PO SCH (10:49)
[2020-06-03] MEDS: METOPROLOL TARTRATE 25 MG TABLET (FP) NGT SCH ×2 (10:49→21:58)
[2020-06-03] MEDS: ENOXAPARIN NA (PORCINE) 80 MG/0.8 ML DISP.SYRIN SQ SCH ×2 (10:49→21:57)
[2020-06-03] MEDS: THIAMINE HCL 200 MG/2 ML VIAL IVPB SCH (12:21)
[2020-06-03] MEDS ORDERED: SODIUM CHLORIDE 0.45% 1,000 ML IV SCH (13:00)
[2020-06-03] MEDS: VANCOMYCIN 1 GM in D5W (PRE-DOCKED) 1,000 MG/250 ML IVPB SCH (13:41)
[2020-06-03] MEDS ORDERED: IRON SUCROSE INJECTION 200 MG in SODIUM CHLORIDE 90 ML IVPB ONE (16:59)
[2020-06-03] MEDS: CASPOFUNGIN ACETATE 50 MG in SODIUM CHLORIDE 250 ML IVPB SCH (18:53)
[2020-06-03] MEDS: CHLORHEXIDINE GLUCONATE 4% CLEANSER FOR DECOLONIZATION TP SCH (21:58)
[2020-06-04] MEDS ORDERED: DEXTROSE 5%-WATER 100 ML IVPB ONE ×3 (01:31→17:27)
[2020-06-04] MEDS ORDERED: MEROPENEM 1 GM VIAL (RESTRICTED TO ID) IVPB ONE ×3 (01:31→17:27)
[2020-06-04] MEDS: MEROPENEM 1 GM in DEXTROSE 5%-WATER 100 ML IVPB SCH ×3 (01:36→17:31)
[2020-06-04] MEDS ORDERED: PT OWN MED DRAWER 7, Y5N ONE (03:29)
[2020-06-04] MEDS: ALBUTEROL SO4 2.5/IPRATROPIUM 0.5 INH SOL 3 ML VIAL.NEB. NEB SCH ×5 (04:13→21:47)
[2020-06-04] MEDS: PANTOPRAZOLE SODIUM 80 MG in SODIUM CHLORIDE 100 ML IVPB SCH (05:43)
[2020-06-04] MEDS: BANATROL PLUS POWDER PACKET PO SCH ×3 (05:43→21:53)
[2020-06-04] MEDS: INSULIN (LEVEMIR) 100 UNITS/ML UNITS SQ SCH ×2 (06:37→21:55)
[2020-06-04] MEDS: INSULIN SLIDING SCALE (NOVOLOG) 1 VIAL SQ SCH ×4 (06:38→21:54)
[2020-06-04 08:59] LABS: HEMATOCRIT 27.1 % (35.4-49); HEMOGLOBIN 8.9 GM/dL (11.7-16.9); MCH 28.3 pg (25.7-33.7); MCHC 32.8 g/dl (32.0-35.9); MEAN CELL VOLUME 86.3 fl (80-96); MEAN PLT VOLUME 9.1 fl (7.5-11.1); PLATELET COUNT 262 K/MM3 (134-434); RBC 3.14 M/mm3 (4.00-5.60); RDW 15.3 % (11.9-15.9); WHITE BLOOD COUNT 9.5 K/mm3 (4.0-10.0)
[2020-06-04] MEDS: LACTOBACILLUS ACIDOPHILUS 1 TABLET PO SCH (10:37)
[2020-06-04] MEDS: METOPROLOL TARTRATE 25 MG TABLET (FP) NGT SCH ×2 (10:38→21:52)
[2020-06-04] MEDS: ENOXAPARIN NA (PORCINE) 80 MG/0.8 ML DISP.SYRIN SQ SCH ×2 (10:43→21:52)
[2020-06-04] MEDS: THIAMINE HCL 200 MG/2 ML VIAL IVPB SCH (11:00)
[2020-06-04] MEDS: VANCOMYCIN 1 GM in D5W (PRE-DOCKED) 1,000 MG/250 ML IVPB SCH (15:01)
[2020-06-04] MEDS: PANTOPRAZOLE SODIUM 40 MG VIAL IVPUSH SCH (15:02)
[2020-06-04 19:08] LABS: HEP B CORE AB, TOT Negative (Negative)
[2020-06-04] MEDS: CASPOFUNGIN ACETATE 50 MG in SODIUM CHLORIDE 250 ML IVPB SCH (19:35)
[2020-06-04] MEDS: CHLORHEXIDINE GLUCONATE 4% CLEANSER FOR DECOLONIZATION TP SCH (21:55)
[2020-06-05] MEDS: ALBUTEROL SO4 2.5/IPRATROPIUM 0.5 INH SOL 3 ML VIAL.NEB. NEB SCH ×4 (00:10→12:37)
[2020-06-05] MEDS ORDERED: MEROPENEM 1 GM VIAL (RESTRICTED TO ID) IVPB ONE ×3 (01:26→17:27)
[2020-06-05] MEDS ORDERED: DEXTROSE 5%-WATER 100 ML IVPB ONE ×3 (01:27→17:28)
[2020-06-05] MEDS: MEROPENEM 1 GM in DEXTROSE 5%-WATER 100 ML IVPB SCH ×3 (01:35→17:26)
[2020-06-05] MEDS: BANATROL PLUS POWDER PACKET PO SCH ×3 (05:47→23:01)
[2020-06-05] MEDS: INSULIN (LEVEMIR) 100 UNITS/ML UNITS SQ SCH ×2 (06:00→23:11)
[2020-06-05] MEDS: INSULIN SLIDING SCALE (NOVOLOG) 1 VIAL SQ SCH ×4 (06:00→23:02)
[2020-06-05 10:12] LABS: BASO % 0.1 % (0-2.0); EOS % 0.6 % (0-4.5); HEMATOCRIT 27.7 % (35.4-49); HEMOGLOBIN 9.2 GM/dL (11.7-16.9); LYMPH % 7.2 % (8-40); MCH 28.8 pg (25.7-33.7); MCHC 33.3 g/dl (32.0-35.9); MEAN CELL VOLUME 86.3 fl (80-96); MEAN PLT VOLUME 9.5 fl (7.5-11.1); MONO % 5.1 % (3.8-10.2); PLATELET COUNT 242 K/MM3 (134-434); RBC 3.21 M/mm3 (4.00-5.60); RDW 15.2 % (11.9-15.9); WHITE BLOOD COUNT 9.3 K/mm3 (4.0-10.0)
[2020-06-05 10:30] LABS: POTASSIUM 3.7 mmol/L (3.5-5.1)
[2020-06-05 10:46] LABS: CALCIUM 7.7 mg/dL (8.5-10.1)
[2020-06-05 10:47] LABS: BLOOD UREA NITROGEN 22.1 mg/dL (7-18)
[2020-06-05 10:50] LABS: CREATININE 0.6 mg/dL (0.55-1.3)
[2020-06-05 10:51] LABS: BILIRUBIN,TOTAL 0.6 mg/dL (0.2-1); TOT PROT 6.2 g/dl (6.4-8.2)
[2020-06-05] MEDS: METOPROLOL TARTRATE 25 MG TABLET (FP) NGT SCH ×2 (11:27→23:02)
[2020-06-05] MEDS: LACTOBACILLUS ACIDOPHILUS 1 TABLET PO SCH (11:27)
[2020-06-05] MEDS: ENOXAPARIN NA (PORCINE) 80 MG/0.8 ML DISP.SYRIN SQ SCH ×2 (11:28→23:02)
[2020-06-05] MEDS: PANTOPRAZOLE SODIUM 40 MG VIAL IVPUSH SCH (11:28)
[2020-06-05] MEDS ORDERED: FUROSEMIDE 40 MG/5 ML UNIT-DOSE CUP PO ONE (13:00)
[2020-06-05] MEDS: THIAMINE HCL 200 MG/2 ML VIAL IVPB SCH ×2 (13:14→17:24)
[2020-06-05] MEDS: VANCOMYCIN 1 GM in D5W (PRE-DOCKED) 1,000 MG/250 ML IVPB SCH (18:36)
[2020-06-05] MEDS ORDERED: PT OWN MED DRAWER 7, Y5N ONE (22:36)
[2020-06-06 01:20] LABS: EPI CELLS 14 /uL (0-25.1); HYALINE CASTS 1 /uL (0-3.1); PH,URINE 5.5 (5.0-8.0); URINE APPEARANCE CLEAR; URINE BACTERIA 37 /uL (0-1359); URINE BILIRUBIN NEGATIVE (NEGATIVE); URINE COLOR YELLOW; URINE GLUCOSE (UA) 2+ (NEGATIVE); URINE KETONE NEGATIVE (NEGATIVE); URINE LEUK ESTERASE TRACE (NEGATIVE); URINE NITRITE NEGATIVE (NEGATIVE); URINE PROTEIN NEGATIVE (NEGATIVE); URINE RBC 11 /uL (0-23.9); URINE UROBILINOGEN 0.2 mg/dL (0.2-1.0); URINE WBC 163 /uL (0-25.8)
[2020-06-06] MEDS ORDERED: DEXTROSE 5%-WATER 100 ML IVPB ONE ×3 (03:07→18:02)
[2020-06-06] MEDS ORDERED: MEROPENEM 1 GM VIAL (RESTRICTED TO ID) IVPB ONE ×3 (03:07→18:01)
[2020-06-06] MEDS: MEROPENEM 1 GM in DEXTROSE 5%-WATER 100 ML IVPB SCH ×3 (03:08→18:11)
[2020-06-06] MEDS ORDERED: ACETAMINOPHEN 1000 MG/100 ML VIAL (NON FORMULARY) IVPB ONE (03:43)
[2020-06-06] MEDS: BANATROL PLUS POWDER PACKET PO SCH ×3 (05:53→21:17)
[2020-06-06] MEDS: INSULIN SLIDING SCALE (NOVOLOG) 1 VIAL SQ SCH ×4 (06:01→21:20)
[2020-06-06] MEDS: INSULIN (LEVEMIR) 100 UNITS/ML UNITS SQ SCH ×2 (06:01→21:21)
[2020-06-06] MEDS: METOPROLOL TARTRATE 25 MG TABLET (FP) NGT SCH ×2 (09:35→21:18)
[2020-06-06] MEDS: ENOXAPARIN NA (PORCINE) 80 MG/0.8 ML DISP.SYRIN SQ SCH ×2 (09:35→21:18)
[2020-06-06] MEDS: PANTOPRAZOLE SODIUM 40 MG VIAL IVPUSH SCH (09:35)
[2020-06-06] MEDS: LACTOBACILLUS ACIDOPHILUS 1 TABLET PO SCH (09:35)
[2020-06-06 09:52] LABS: BASO % 0.2 % (0-2.0); EOS % 0.7 % (0-4.5); HEMATOCRIT 26.6 % (35.4-49); HEMOGLOBIN 8.9 GM/dL (11.7-16.9); LYMPH % 8.6 % (8-40); MCH 29.3 pg (25.7-33.7); MCHC 33.5 g/dl (32.0-35.9); MEAN CELL VOLUME 87.6 fl (80-96); MEAN PLT VOLUME 9.7 fl (7.5-11.1); MONO % 6.5 % (3.8-10.2); PLATELET COUNT 250 K/MM3 (134-434); RBC 3.04 M/mm3 (4.00-5.60); RDW 15.2 % (11.9-15.9); WHITE BLOOD COUNT 9.8 K/mm3 (4.0-10.0)
[2020-06-06 10:07] LABS: POTASSIUM 3.4 mmol/L (3.5-5.1)
[2020-06-06 10:56] LABS: CALCIUM 7.7 mg/dL (8.5-10.1)
[2020-06-06 10:57] LABS: BLOOD UREA NITROGEN 22.9 mg/dL (7-18); CREATININE 0.5 mg/dL (0.55-1.3)
[2020-06-06 10:59] LABS: BILIRUBIN,TOTAL 0.4 mg/dL (0.2-1); TOT PROT 6.1 g/dl (6.4-8.2)
[2020-06-06] MEDS ORDERED: INSULIN (LEVEMIR) 100 UNITS/ML UNITS SQ ONE (12:45)
[2020-06-06] MEDS ORDERED: POTASSIUM CHLORIDE ORAL LIQUID 20 MEQ/15 ML PO ONE (12:45)
[2020-06-06] MEDS: THIAMINE HCL 200 MG/2 ML VIAL IVPB SCH (13:07)
[2020-06-06] MEDS: CASPOFUNGIN ACETATE 50 MG in SODIUM CHLORIDE 250 ML IVPB SCH (16:04)
[2020-06-06] MEDS: VANCOMYCIN 1 GM in D5W (PRE-DOCKED) 1,000 MG/250 ML IVPB SCH (17:12)
[2020-06-07] MEDS ORDERED: MEROPENEM 1 GM VIAL (RESTRICTED TO ID) IVPB ONE ×3 (01:15→17:33)
[2020-06-07] MEDS ORDERED: DEXTROSE 5%-WATER 100 ML IVPB ONE ×3 (01:15→17:33)
[2020-06-07] MEDS: MEROPENEM 1 GM in DEXTROSE 5%-WATER 100 ML IVPB SCH ×3 (01:39→18:13)
[2020-06-07] MEDS ORDERED: ACETAMINOPHEN 1000 MG/100 ML VIAL (NON FORMULARY) IVPB PRN (05:16)
[2020-06-07] MEDS ORDERED: ACETAMINOPHEN 325 MG TABLET (FP) PO ONE (05:18)
[2020-06-07] MEDS: BANATROL PLUS POWDER PACKET PO SCH ×3 (05:39→22:11)
[2020-06-07] MEDS: INSULIN SLIDING SCALE (NOVOLOG) 1 VIAL SQ SCH ×4 (06:07→22:51)
[2020-06-07] MEDS: INSULIN (LEVEMIR) 100 UNITS/ML UNITS SQ SCH ×2 (06:08→22:50)
[2020-06-07 08:54] LABS: BASO % 0.3 % (0-2.0); EOS % 0.8 % (0-4.5); HEMATOCRIT 26.2 % (35.4-49); HEMOGLOBIN 8.8 GM/dL (11.7-16.9); LYMPH % 10.1 % (8-40); MCH 29.5 pg (25.7-33.7); MCHC 33.6 g/dl (32.0-35.9); MEAN CELL VOLUME 87.8 fl (80-96); MEAN PLT VOLUME 9.7 fl (7.5-11.1); MONO % 7.6 % (3.8-10.2); NEUT % 81.2 % (42.8-82.8); PLATELET COUNT 247 K/MM3 (134-434); RBC 2.99 M/mm3 (4.00-5.60); RDW 15.8 % (11.9-15.9); WHITE BLOOD COUNT 9.8 K/mm3 (4.0-10.0)
[2020-06-07 09:07] LABS: POTASSIUM 3.9 mmol/L (3.5-5.1)
[2020-06-07 09:21] LABS: BLOOD UREA NITROGEN 23.3 mg/dL (7-18); CALCIUM 7.5 mg/dL (8.5-10.1)
[2020-06-07 09:22] LABS: BILIRUBIN,TOTAL 0.4 mg/dL (0.2-1)
[2020-06-07 09:24] LABS: CREATININE 0.5 mg/dL (0.55-1.3); PHOSPHOROUS 1.7 mg/dL (2.5-4.9)
[2020-06-07] MEDS: LACTOBACILLUS ACIDOPHILUS 1 TABLET PO SCH (11:14)
[2020-06-07] MEDS: METOPROLOL TARTRATE 25 MG TABLET (FP) NGT SCH ×2 (11:14→22:11)
[2020-06-07] MEDS: ACETAMINOPHEN 650 MG/20.3 ML ORAL SOLUTION (CUPS) NGT PRN ×2 (11:15→20:32)
[2020-06-07] MEDS: PANTOPRAZOLE SODIUM 40 MG VIAL IVPUSH SCH (11:15)
[2020-06-07] MEDS: THIAMINE HCL 200 MG/2 ML VIAL IVPB SCH (11:17)
[2020-06-07] MEDS: ENOXAPARIN NA (PORCINE) 80 MG/0.8 ML DISP.SYRIN SQ SCH ×2 (11:17→22:11)
[2020-06-07] MEDS: VANCOMYCIN 1 GM in D5W (PRE-DOCKED) 1,000 MG/250 ML IVPB SCH (14:54)
[2020-06-07] MEDS: CASPOFUNGIN ACETATE 50 MG in SODIUM CHLORIDE 250 ML IVPB SCH ×2 (16:09→20:01)
[2020-06-07] MEDS ORDERED: PT OWN MED DRAWER 7, Y5N ONE ×2 (19:46→22:07)
[2020-06-07] MEDS: NAPH,MB-DB/K PH,MBDB POWDER PACKET PO SCH (22:11)
[2020-06-08] MEDS ORDERED: MEROPENEM 1 GM VIAL (RESTRICTED TO ID) IVPB ONE ×3 (00:43→17:40)
[2020-06-08] MEDS ORDERED: DEXTROSE 5%-WATER 100 ML IVPB ONE ×3 (00:43→17:41)
[2020-06-08] MEDS: MEROPENEM 1 GM in DEXTROSE 5%-WATER 100 ML IVPB SCH ×3 (01:29→18:06)
[2020-06-08] MEDS: BANATROL PLUS POWDER PACKET PO SCH ×3 (05:10→21:55)
[2020-06-08] MEDS: INSULIN SLIDING SCALE (NOVOLOG) 1 VIAL SQ SCH ×4 (06:03→21:55)
[2020-06-08] MEDS: INSULIN (LEVEMIR) 100 UNITS/ML UNITS SQ SCH ×2 (06:03→21:55)
[2020-06-08 09:08] LABS: BASO % 0.4 % (0-2.0); EOS % 0.7 % (0-4.5); HEMATOCRIT 25.5 % (35.4-49); HEMOGLOBIN 8.6 GM/dL (11.7-16.9); LYMPH % 10.7 % (8-40); MCH 29.2 pg (25.7-33.7); MCHC 33.7 g/dl (32.0-35.9); MEAN CELL VOLUME 86.9 fl (80-96); MEAN PLT VOLUME 9.5 fl (7.5-11.1); MONO % 8.3 % (3.8-10.2); NEUT % 79.9 % (42.8-82.8); PLATELET COUNT 258 K/MM3 (134-434); RBC 2.93 M/mm3 (4.00-5.60); RDW 15.9 % (11.9-15.9); WHITE BLOOD COUNT 9.3 K/mm3 (4.0-10.0)
[2020-06-08 10:19] LABS: BLOOD UREA NITROGEN 23.7 mg/dL (7-18); CALCIUM 7.9 mg/dL (8.5-10.1)
[2020-06-08 10:21] LABS: CREATININE 0.4 mg/dL (0.55-1.3)
[2020-06-08 10:22] LABS: PHOSPHOROUS 2.3 mg/dL (2.5-4.9)
[2020-06-08 10:24] LABS: TOT PROT 5.9 g/dl (6.4-8.2)
[2020-06-08 10:25] LABS: BILIRUBIN,TOTAL 0.3 mg/dL (0.2-1)
[2020-06-08] MEDS: NAPH,MB-DB/K PH,MBDB POWDER PACKET PO SCH (11:18)
[2020-06-08] MEDS: PANTOPRAZOLE SODIUM 40 MG VIAL IVPUSH SCH (11:18)
[2020-06-08] MEDS: METOPROLOL TARTRATE 25 MG TABLET (FP) NGT SCH ×2 (11:18→21:55)
[2020-06-08] MEDS: LACTOBACILLUS ACIDOPHILUS 1 TABLET PO SCH (11:18)
[2020-06-08] MEDS: ENOXAPARIN NA (PORCINE) 80 MG/0.8 ML DISP.SYRIN SQ SCH ×2 (11:19→21:56)
[2020-06-08] MEDS: THIAMINE HCL 200 MG/2 ML VIAL IVPB SCH (11:20)
[2020-06-08 12:25] LABS: ANISOCYTOSIS 0; HELMET CELLS 0; HOWELL-JOLLY BODIES 0; MACROCYTOSIS 0; OVALOCYTE 0; PLATELET ESTIMATE NORMAL; ROULEAU 0; SICKELED CELLS 0; TARGET CELLS 0; TEAR DROP CELLS 0; TOXIC GRANULATION 0
[2020-06-08] MEDS ORDERED: NAPH,MB-DB/K PH,MBDB POWDER PACKET PO ONE (13:33)
[2020-06-08] MEDS ORDERED: PT OWN MED DRAWER 7, Y5N ONE ×2 (14:27→21:43)
[2020-06-08] MEDS: CASPOFUNGIN ACETATE 50 MG in SODIUM CHLORIDE 250 ML IVPB SCH (14:32)
[2020-06-09] MEDS ORDERED: DEXTROSE 5%-WATER 100 ML IVPB ONE ×3 (00:59→16:52)
[2020-06-09] MEDS ORDERED: MEROPENEM 1 GM VIAL (RESTRICTED TO ID) IVPB ONE ×3 (00:59→16:51)
[2020-06-09] MEDS: MEROPENEM 1 GM in DEXTROSE 5%-WATER 100 ML IVPB SCH ×3 (01:38→17:04)
[2020-06-09] MEDS: BANATROL PLUS POWDER PACKET PO SCH ×3 (05:07→21:19)
[2020-06-09] MEDS: INSULIN (LEVEMIR) 100 UNITS/ML UNITS SQ SCH ×2 (06:00→21:19)
[2020-06-09] MEDS: INSULIN SLIDING SCALE (NOVOLOG) 1 VIAL SQ SCH ×4 (06:01→21:19)
[2020-06-09 08:31] LABS: HEMATOCRIT 25.8 % (35.4-49); HEMOGLOBIN 8.5 GM/dL (11.7-16.9); MCHC 32.9 g/dl (32.0-35.9); MEAN CELL VOLUME 88.2 fl (80-96); MEAN PLT VOLUME 9.8 fl (7.5-11.1); PLATELET COUNT 252 K/MM3 (134-434); RBC 2.92 M/mm3 (4.00-5.60); RDW 15.8 % (11.9-15.9); WHITE BLOOD COUNT 9.3 K/mm3 (4.0-10.0)
[2020-06-09 08:49] LABS: POTASSIUM 4.2 mmol/L (3.5-5.1)
[2020-06-09 08:50] LABS: CALCIUM 7.4 mg/dL (8.5-10.1); MAGNESIUM 1.9 mg/dL (1.8-2.4)
[2020-06-09 08:54] LABS: CREATININE 0.3 mg/dL (0.55-1.3); PHOSPHOROUS 2.3 mg/dL (2.5-4.9)
[2020-06-09 08:55] LABS: BILIRUBIN,TOTAL 0.4 mg/dL (0.2-1); TOT PROT 5.9 g/dl (6.4-8.2)
[2020-06-09] MEDS: ENOXAPARIN NA (PORCINE) 80 MG/0.8 ML DISP.SYRIN SQ SCH ×2 (09:43→21:19)
[2020-06-09] MEDS: METOPROLOL TARTRATE 25 MG TABLET (FP) NGT SCH ×2 (09:44→21:19)
[2020-06-09] MEDS: LACTOBACILLUS ACIDOPHILUS 1 TABLET PO SCH (09:44)
[2020-06-09] MEDS: PANTOPRAZOLE SODIUM 40 MG VIAL IVPUSH SCH (09:44)
[2020-06-09] MEDS: THIAMINE HCL 200 MG/2 ML VIAL IVPB SCH (10:53)
[2020-06-09] MEDS: TRIPLE LUMEN FLUSH 4 ML ML IVPUSH PRN ×3 (11:05→18:21)
[2020-06-09] MEDS ORDERED: PT OWN MED DRAWER 7, Y5N ONE ×2 (12:17→21:11)
[2020-06-09] MEDS ORDERED: NAPH,MB-DB/K PH,MBDB POWDER PACKET PO ONE (12:42)
[2020-06-09] MEDS: CASPOFUNGIN ACETATE 50 MG in SODIUM CHLORIDE 250 ML IVPB SCH (13:25)
[2020-06-10] MEDS ORDERED: DEXTROSE 5%-WATER 100 ML IVPB ONE ×3 (01:15→19:01)
[2020-06-10] MEDS ORDERED: MEROPENEM 1 GM VIAL (RESTRICTED TO ID) IVPB ONE ×3 (01:15→19:00)
[2020-06-10] MEDS: MEROPENEM 1 GM in DEXTROSE 5%-WATER 100 ML IVPB SCH ×3 (01:21→19:24)
[2020-06-10] MEDS: INSULIN (LEVEMIR) 100 UNITS/ML UNITS SQ SCH ×2 (06:06→21:20)
[2020-06-10] MEDS: BANATROL PLUS POWDER PACKET PO SCH ×3 (06:06→21:17)
[2020-06-10] MEDS: INSULIN SLIDING SCALE (NOVOLOG) 1 VIAL SQ SCH ×4 (06:07→21:20)
[2020-06-10 09:56] LABS: HEMATOCRIT 27.7 % (35.4-49); HEMOGLOBIN 9.2 GM/dL (11.7-16.9); MCH 28.8 pg (25.7-33.7); MEAN CELL VOLUME 87.4 fl (80-96); MEAN PLT VOLUME 9.6 fl (7.5-11.1); PLATELET COUNT 289 K/MM3 (134-434); RBC 3.18 M/mm3 (4.00-5.60); RDW 16.3 % (11.9-15.9); WHITE BLOOD COUNT 10.4 K/mm3 (4.0-10.0)
[2020-06-10 10:09] LABS: POTASSIUM 3.8 mmol/L (3.5-5.1)
[2020-06-10 10:12] LABS: ALBUMIN 2.2 g/dl (3.4-5.0)
[2020-06-10 10:16] LABS: BLOOD UREA NITROGEN 22.1 mg/dL (7-18); CALCIUM 8.1 mg/dL (8.5-10.1)
[2020-06-10 10:17] LABS: MAGNESIUM 2.2 mg/dL (1.8-2.4)
[2020-06-10 10:19] LABS: BILIRUBIN,TOTAL 0.4 mg/dL (0.2-1); CREATININE 0.3 mg/dL (0.55-1.3)
[2020-06-10 10:20] LABS: PHOSPHOROUS 2.8 mg/dL (2.5-4.9)
[2020-06-10 10:22] LABS: TOT PROT 6.2 g/dl (6.4-8.2)
[2020-06-10] MEDS: ENOXAPARIN NA (PORCINE) 80 MG/0.8 ML DISP.SYRIN SQ SCH ×2 (10:37→21:16)
[2020-06-10] MEDS: THIAMINE HCL 200 MG/2 ML VIAL IVPB SCH (10:38)
[2020-06-10] MEDS: PANTOPRAZOLE SODIUM 40 MG VIAL IVPUSH SCH (10:38)
[2020-06-10] MEDS ORDERED: PT OWN MED DRAWER 7, Y5N ONE ×2 (15:01→21:17)
[2020-06-10] MEDS: CASPOFUNGIN ACETATE 50 MG in SODIUM CHLORIDE 250 ML IVPB SCH (15:03)
[2020-06-10] MEDS ORDERED: MINERAL OIL/PETROLATUM,WHITE 3.5 GM TUBE ONE (16:02)
[2020-06-10] MEDS ORDERED: PROPOFOL 20 ML ONE (16:03)
[2020-06-10] MEDS ORDERED: SUCCINYLCHOLINE CHLORIDE 200 MG/10 ML SYRINGE ONE (16:03)
[2020-06-10] MEDS ORDERED: MIDAZOLAM HCL 2 MG/2 ML SINGLE DOSE VIAL ONE (16:03)
[2020-06-10] MEDS ORDERED: ONDANSETRON 4 MG/2 ML VIAL IVPUSH PRN ×2 (16:33→17:14)
[2020-06-10] MEDS ORDERED: LACTATED RINGERS SOLUTION 1,000 ML IV SCH ×2 (16:45→17:14)
[2020-06-10] MEDS ORDERED: METOPROLOL TARTRATE 5 MG/5 ML VIAL IVPB PRN (17:14)
[2020-06-10] MEDS ORDERED: ALBUTEROL SO4 HFA INHALER IH PRN (17:14)
[2020-06-10] MEDS ORDERED: OCULAR LUBRICANT OPHTHALMIC OINTMENT 7 GM TUBE OU PRN (17:14)
[2020-06-10] MEDS: METOPROLOL TARTRATE 25 MG TABLET (FP) NGT SCH ×2 (17:33→21:15)
[2020-06-10] MEDS: LACTOBACILLUS ACIDOPHILUS 1 TABLET PO SCH (17:33)
[2020-06-10 21:56] LABS: EPI CELLS >36 /uL (0-25.1); HYALINE CASTS 20 /uL (0-3.1); PH,URINE 6.5 (5.0-8.0); URINE APPEARANCE TURBID; URINE BACTERIA 230 /uL (0-1359); URINE BILIRUBIN NEGATIVE (NEGATIVE); URINE COLOR RED; URINE GLUCOSE (UA) NEGATIVE (NEGATIVE); URINE KETONE NEGATIVE (NEGATIVE); URINE LEUK ESTERASE 3+ (NEGATIVE); URINE NITRITE NEGATIVE (NEGATIVE); URINE PROTEIN 2+ (NEGATIVE); URINE UROBILINOGEN 0.2 mg/dL (0.2-1.0); URINE WBC 9724 /uL (0-25.8)
[2020-06-10 22:20] LABS: URINE RBC 5269.2 /uL (0-23.9)
[2020-06-11] MEDS ORDERED: ACETAMINOPHEN 1000 MG/100 ML VIAL (NON FORMULARY) IVPB PRN ×2 (00:03→13:13)
[2020-06-11] MEDS ORDERED: SIMETHICONE 40 MG/0.6 ML BOTTLE NGT PRN (00:03)
[2020-06-11] MEDS ORDERED: SODIUM CHLORIDE 1,000 ML IV SCH (02:30)
[2020-06-11] MEDS ORDERED: MEROPENEM 1 GM VIAL (RESTRICTED TO ID) IVPB ONE (03:30)
[2020-06-11] MEDS ORDERED: DEXTROSE 5%-WATER 100 ML IVPB ONE ×2 (03:30→18:34)
[2020-06-11] MEDS: INSULIN (LEVEMIR) 100 UNITS/ML UNITS SQ SCH ×2 (06:38→23:14)
[2020-06-11] MEDS: INSULIN SLIDING SCALE (NOVOLOG) 1 VIAL SQ SCH ×4 (06:38→23:15)
[2020-06-11] MEDS: MEROPENEM 1 GM in DEXTROSE 5%-WATER 100 ML IVPB SCH ×2 (07:00→10:58)
[2020-06-11] MEDS: BANATROL PLUS POWDER PACKET PO SCH ×3 (07:35→23:14)
[2020-06-11 09:37] LABS: BASO % 0.3 % (0-2.0); EOS % 0.3 % (0-4.5); HEMATOCRIT 25.8 % (35.4-49); HEMOGLOBIN 8.6 GM/dL (11.7-16.9); LYMPH % 10.6 % (8-40); MCH 28.9 pg (25.7-33.7); MCHC 33.3 g/dl (32.0-35.9); MEAN CELL VOLUME 86.8 fl (80-96); MEAN PLT VOLUME 9.4 fl (7.5-11.1); MONO % 6.6 % (3.8-10.2); NEUT % 82.2 % (42.8-82.8); PLATELET COUNT 261 K/MM3 (134-434); RBC 2.97 M/mm3 (4.00-5.60); RDW 15.8 % (11.9-15.9); WHITE BLOOD COUNT 10.7 K/mm3 (4.0-10.0)
[2020-06-11 09:54] LABS: BLOOD UREA NITROGEN 18.5 mg/dL (7-18)
[2020-06-11 09:57] LABS: CREATININE 0.3 mg/dL (0.55-1.3); TOT PROT 5.9 g/dl (6.4-8.2)
[2020-06-11 09:58] LABS: BILIRUBIN,TOTAL 0.6 mg/dL (0.2-1)
[2020-06-11] MEDS: ENOXAPARIN NA (PORCINE) 80 MG/0.8 ML DISP.SYRIN SQ SCH ×2 (10:43→23:22)
[2020-06-11] MEDS: PANTOPRAZOLE SODIUM 40 MG VIAL IVPUSH SCH (10:43)
[2020-06-11] MEDS: THIAMINE HCL 200 MG/2 ML VIAL IVPB SCH (10:44)
[2020-06-11] MEDS: METOPROLOL TARTRATE 25 MG TABLET (FP) NGT SCH ×2 (10:58→23:21)
[2020-06-11] MEDS: LACTOBACILLUS ACIDOPHILUS 1 TABLET PO SCH (10:58)
[2020-06-11] MEDS: TRIPLE LUMEN FLUSH 4 ML ML IVPUSH PRN (13:33)
[2020-06-11] MEDS ORDERED: POTASSIUM CHLORIDE ORAL LIQUID 20 MEQ/15 ML PO ONE (13:35)
[2020-06-11] MEDS: SODIUM CHLORIDE 0.45%/POT 20 MEQ/1,000 ML INFUS.BAG IV SCH (14:05)
[2020-06-11] MEDS: KCL 10 MEQ IVPB 10 MEQ/100 ML INFUS.BAG IVPB SCH ×3 (14:06→16:04)
[2020-06-11] MEDS: CASPOFUNGIN ACETATE 50 MG in SODIUM CHLORIDE 250 ML IVPB SCH (17:34)
[2020-06-11] MEDS ORDERED: CEFTRIAXONE 2 GM-D5W BAG 2 GM/50 ML BAG IVPB SCH (17:45)
[2020-06-11] MEDS: CEFTRIAXONE 2 GM in DEXTROSE 5%-WATER 2 GM/100 ML BAG IVPB SCH (18:53)
[2020-06-11] MEDS ORDERED: ACETAMINOPHEN 1000 MG/100 ML VIAL (NON FORMULARY) IVPB ONE (21:38)
[2020-06-12] MEDS ORDERED: morphine CARPU-JECT 4 MG/1 ML DISP.SYRIN IVPUSH ONE (02:08)
[2020-06-12] MEDS ORDERED: LORazepam 2 MG/ML SDV VIAL IVPUSH ONE (02:10)
[2020-06-12] MEDS: BANATROL PLUS POWDER PACKET PO SCH ×3 (05:44→21:13)
[2020-06-12] MEDS: INSULIN (LEVEMIR) 100 UNITS/ML UNITS SQ SCH ×2 (06:21→21:17)
[2020-06-12] MEDS: INSULIN SLIDING SCALE (NOVOLOG) 1 VIAL SQ SCH ×4 (06:22→21:16)
[2020-06-12] MEDS: SODIUM CHLORIDE 0.45%/POT 20 MEQ/1,000 ML INFUS.BAG IV SCH ×2 (06:36→14:48)
[2020-06-12] MEDS ORDERED: DEXTROSE 5%-WATER 100 ML IVPB ONE (09:51)
[2020-06-12] MEDS: PANTOPRAZOLE SODIUM 40 MG VIAL IVPUSH SCH (10:16)
[2020-06-12] MEDS: ENOXAPARIN NA (PORCINE) 80 MG/0.8 ML DISP.SYRIN SQ SCH ×2 (10:16→21:14)
[2020-06-12] MEDS: TRIPLE LUMEN FLUSH 4 ML ML IVPUSH PRN (10:18)
[2020-06-12 10:26] LABS: BASO % 0.5 % (0-2.0); EOS % 0.6 % (0-4.5); HEMATOCRIT 25.4 % (35.4-49); HEMOGLOBIN 8.5 GM/dL (11.7-16.9); MCH 29.1 pg (25.7-33.7); MCHC 33.3 g/dl (32.0-35.9); MEAN CELL VOLUME 87.4 fl (80-96); MEAN PLT VOLUME 9.6 fl (7.5-11.1); MONO % 6.7 % (3.8-10.2); NEUT % 82.2 % (42.8-82.8); PLATELET COUNT 267 K/MM3 (134-434); RBC 2.91 M/mm3 (4.00-5.60); RDW 16.4 % (11.9-15.9); WHITE BLOOD COUNT 10.1 K/mm3 (4.0-10.0)
[2020-06-12] MEDS: METOPROLOL TARTRATE 25 MG TABLET (FP) NGT SCH ×2 (10:31→21:12)
[2020-06-12] MEDS: THIAMINE HCL 200 MG/2 ML VIAL IVPB SCH (10:31)
[2020-06-12] MEDS: LACTOBACILLUS ACIDOPHILUS 1 TABLET PO SCH (10:31)
[2020-06-12 10:52] LABS: POTASSIUM 3.2 mmol/L (3.5-5.1)
[2020-06-12 10:54] LABS: ALBUMIN 2.2 g/dl (3.4-5.0); BLOOD UREA NITROGEN 16.7 mg/dL (7-18); CALCIUM 8.1 mg/dL (8.5-10.1)
[2020-06-12 10:57] LABS: CREATININE 0.3 mg/dL (0.55-1.3)
[2020-06-12 10:58] LABS: PHOSPHOROUS 2.7 mg/dL (2.5-4.9)
[2020-06-12 10:59] LABS: BILIRUBIN,TOTAL 0.4 mg/dL (0.2-1); TOT PROT 6.1 g/dl (6.4-8.2)
[2020-06-12] MEDS: CEFTRIAXONE 2 GM in DEXTROSE 5%-WATER 2 GM/100 ML BAG IVPB SCH (11:40)
[2020-06-12] MEDS ORDERED: IRON SUCROSE INJECTION 200 MG in SODIUM CHLORIDE 90 ML IVPB ONE (12:00)
[2020-06-12] MEDS ORDERED: POTASSIUM CHLORIDE ORAL LIQUID 20 MEQ/15 ML PO ONE (12:19)
[2020-06-12] MEDS: KCL 10 MEQ IVPB 10 MEQ/100 ML INFUS.BAG IVPB SCH ×3 (13:14→15:45)
[2020-06-12] MEDS ORDERED: KCL 10 MEQ IVPB 10 MEQ/100 ML INFUS.BAG IVPB SCH (15:30)
[2020-06-12] MEDS ORDERED: ACETAMINOPHEN 1000 MG/100 ML VIAL (NON FORMULARY) IVPB ONE (18:26)
[2020-06-12] MEDS: CASPOFUNGIN ACETATE 50 MG in SODIUM CHLORIDE 250 ML IVPB SCH (20:37)
[2020-06-12] MEDS ORDERED: PT OWN MED DRAWER 7, Y5N ONE (20:55)
[2020-06-13] MEDS: SODIUM CHLORIDE 0.45%/POT 20 MEQ/1,000 ML INFUS.BAG IV SCH ×2 (02:23→19:36)
[2020-06-13] MEDS: BANATROL PLUS POWDER PACKET PO SCH ×3 (06:26→21:15)
[2020-06-13] MEDS: INSULIN (LEVEMIR) 100 UNITS/ML UNITS SQ SCH ×2 (06:32→21:11)
[2020-06-13] MEDS: INSULIN SLIDING SCALE (NOVOLOG) 1 VIAL SQ SCH ×4 (06:32→21:12)
[2020-06-13 09:55] LABS: BASO % 0.3 % (0-2.0); EOS % 0.4 % (0-4.5); HEMATOCRIT 24.9 % (35.4-49); HEMOGLOBIN 8.3 GM/dL (11.7-16.9); LYMPH % 7.2 % (8-40); MCHC 33.5 g/dl (32.0-35.9); MEAN CELL VOLUME 86.8 fl (80-96); MEAN PLT VOLUME 8.9 fl (7.5-11.1); MONO % 6.7 % (3.8-10.2); NEUT % 85.4 % (42.8-82.8); PLATELET COUNT 266 K/MM3 (134-434); RBC 2.87 M/mm3 (4.00-5.60); RDW 16.1 % (11.9-15.9); WHITE BLOOD COUNT 10.7 K/mm3 (4.0-10.0)
[2020-06-13 09:57] LABS: POTASSIUM 3.3 mmol/L (3.5-5.1)
[2020-06-13 10:00] LABS: ALBUMIN 2.1 g/dl (3.4-5.0); BLOOD UREA NITROGEN 10.5 mg/dL (7-18)
[2020-06-13 10:01] LABS: CALCIUM 7.9 mg/dL (8.5-10.1); MAGNESIUM 1.8 mg/dL (1.8-2.4)
[2020-06-13 10:04] LABS: PHOSPHOROUS 2.8 mg/dL (2.5-4.9)
[2020-06-13 10:05] LABS: CREATININE 0.2 mg/dL (0.55-1.3)
[2020-06-13 10:06] LABS: BILIRUBIN,TOTAL 0.5 mg/dL (0.2-1); TOT PROT 5.9 g/dl (6.4-8.2)
[2020-06-13] MEDS ORDERED: DEXTROSE 5%-WATER 100 ML IVPB ONE (11:39)
[2020-06-13] MEDS: PANTOPRAZOLE SODIUM 40 MG VIAL IVPUSH SCH (11:48)
[2020-06-13] MEDS: ENOXAPARIN NA (PORCINE) 80 MG/0.8 ML DISP.SYRIN SQ SCH ×2 (11:48→21:12)
[2020-06-13] MEDS: CEFTRIAXONE 2 GM in DEXTROSE 5%-WATER 2 GM/100 ML BAG IVPB SCH (11:49)
[2020-06-13] MEDS: THIAMINE HCL 200 MG/2 ML VIAL IVPB SCH (11:49)
[2020-06-13] MEDS: METOPROLOL TARTRATE 25 MG TABLET (FP) NGT SCH ×2 (11:49→21:15)
[2020-06-13] MEDS: LACTOBACILLUS ACIDOPHILUS 1 TABLET PO SCH (11:49)
[2020-06-13] MEDS: KCL 10 MEQ IVPB 10 MEQ/100 ML INFUS.BAG IVPB SCH ×3 (13:50→19:35)
[2020-06-13] MEDS: CASPOFUNGIN ACETATE 50 MG in SODIUM CHLORIDE 250 ML IVPB SCH (14:57)
[2020-06-13] MEDS: D5-1/2NS+20 MEQ KCL - 20 MEQ/1,000 ML INFUS.BAG IV SCH (17:08)
[2020-06-14] MEDS: ACETAMINOPHEN 650 MG/20.3 ML ORAL SOLUTION (CUPS) NGT PRN ×2 (02:40→21:21)
[2020-06-14] MEDS ORDERED: PT OWN MED DRAWER 7, Y5N ONE ×4 (05:13→21:09)
[2020-06-14] MEDS: BANATROL PLUS POWDER PACKET PO SCH ×3 (05:31→21:18)
[2020-06-14] MEDS: D5-1/2NS+20 MEQ KCL - 20 MEQ/1,000 ML INFUS.BAG IV SCH ×3 (05:47→21:52)
[2020-06-14] MEDS: INSULIN (LEVEMIR) 100 UNITS/ML UNITS SQ SCH ×2 (06:30→21:25)
[2020-06-14] MEDS: INSULIN SLIDING SCALE (NOVOLOG) 1 VIAL SQ SCH ×4 (06:33→21:32)
[2020-06-14 08:35] LABS: BASO % 0.3 % (0-2.0); EOS % 0.7 % (0-4.5); HEMOGLOBIN 8.1 GM/dL (11.7-16.9); LYMPH % 10.2 % (8-40); MCH 29.3 pg (25.7-33.7); MCHC 33.8 g/dl (32.0-35.9); MEAN CELL VOLUME 86.6 fl (80-96); MEAN PLT VOLUME 8.8 fl (7.5-11.1); MONO % 7.4 % (3.8-10.2); NEUT % 81.4 % (42.8-82.8); PLATELET COUNT 246 K/MM3 (134-434); RBC 2.77 M/mm3 (4.00-5.60); RDW 15.9 % (11.9-15.9); WHITE BLOOD COUNT 8.5 K/mm3 (4.0-10.0)
[2020-06-14 08:59] LABS: POTASSIUM 3.3 mmol/L (3.5-5.1)
[2020-06-14 09:10] LABS: ALBUMIN 2.1 g/dl (3.4-5.0); CALCIUM 7.8 mg/dL (8.5-10.1)
[2020-06-14 09:11] LABS: BLOOD UREA NITROGEN 7.2 mg/dL (7-18); MAGNESIUM 1.7 mg/dL (1.8-2.4)
[2020-06-14 09:13] LABS: BILIRUBIN,TOTAL 0.4 mg/dL (0.2-1)
[2020-06-14 09:14] LABS: CREATININE 0.3 mg/dL (0.55-1.3); PHOSPHOROUS 3.1 mg/dL (2.5-4.9)
[2020-06-14] MEDS ORDERED: DEXTROSE 5%-WATER 100 ML IVPB ONE (10:39)
[2020-06-14] MEDS: THIAMINE HCL 200 MG/2 ML VIAL IVPB SCH (10:41)
[2020-06-14] MEDS: METOPROLOL TARTRATE 25 MG TABLET (FP) NGT SCH ×2 (10:41→21:25)
[2020-06-14] MEDS: CEFTRIAXONE 2 GM in DEXTROSE 5%-WATER 2 GM/100 ML BAG IVPB SCH (10:41)
[2020-06-14] MEDS: PANTOPRAZOLE SODIUM 40 MG VIAL IVPUSH SCH (10:42)
[2020-06-14] MEDS: MULTIVIT-MINERALS ORAL LIQUID NGT SCH (10:42)
[2020-06-14] MEDS: LACTOBACILLUS ACIDOPHILUS 1 TABLET PO SCH (10:42)
[2020-06-14] MEDS: ENOXAPARIN NA (PORCINE) 80 MG/0.8 ML DISP.SYRIN SQ SCH ×2 (10:42→21:26)
[2020-06-14] MEDS: CASPOFUNGIN ACETATE 50 MG in SODIUM CHLORIDE 250 ML IVPB SCH (14:46)
[2020-06-14] MEDS ORDERED: POTASSIUM CHLORIDE ORAL LIQUID 20 MEQ/15 ML PO ONE (17:14)
[2020-06-14] MEDS: KCL 10 MEQ IVPB 10 MEQ/100 ML INFUS.BAG IVPB SCH ×2 (18:02→19:43)
[2020-06-15] MEDS ORDERED: PT OWN MED DRAWER 7, Y5N ONE ×3 (06:23→23:00)
[2020-06-15] MEDS: BANATROL PLUS POWDER PACKET PO SCH ×3 (06:24→23:07)
[2020-06-15] MEDS: INSULIN (LEVEMIR) 100 UNITS/ML UNITS SQ SCH ×2 (06:30→23:54)
[2020-06-15] MEDS: INSULIN SLIDING SCALE (NOVOLOG) 1 VIAL SQ SCH ×4 (06:31→23:54)
[2020-06-15] MEDS ORDERED: INSULIN (NOVOLOG) ASPART 100 UNITS/ML 10ML VIAL ONE (11:51)
[2020-06-15] MEDS ORDERED: DEXTROSE 5%-WATER 100 ML IVPB ONE (11:52)
[2020-06-15] MEDS: CEFTRIAXONE 2 GM in DEXTROSE 5%-WATER 2 GM/100 ML BAG IVPB SCH (12:06)
[2020-06-15] MEDS: LACTOBACILLUS ACIDOPHILUS 1 TABLET PO SCH (12:07)
[2020-06-15] MEDS: PANTOPRAZOLE SODIUM 40 MG VIAL IVPUSH SCH (12:07)
[2020-06-15] MEDS: ENOXAPARIN NA (PORCINE) 80 MG/0.8 ML DISP.SYRIN SQ SCH ×2 (12:07→23:05)
[2020-06-15] MEDS: METOPROLOL TARTRATE 25 MG TABLET (FP) NGT SCH ×2 (12:07→23:05)
[2020-06-15] MEDS: THIAMINE HCL 200 MG/2 ML VIAL IVPB SCH (12:08)
[2020-06-15] MEDS: MULTIVIT-MINERALS ORAL LIQUID NGT SCH (12:08)
[2020-06-15] MEDS: D5-1/2NS+20 MEQ KCL - 20 MEQ/1,000 ML INFUS.BAG IV SCH ×2 (12:11→16:54)
[2020-06-15] MEDS: CASPOFUNGIN ACETATE 50 MG in SODIUM CHLORIDE 250 ML IVPB SCH (14:21)
[2020-06-16] MEDS: BANATROL PLUS POWDER PACKET PO SCH ×4 (06:40→22:59)
[2020-06-16] MEDS: INSULIN SLIDING SCALE (NOVOLOG) 1 VIAL SQ SCH ×4 (06:42→23:11)
[2020-06-16 08:50] LABS: POTASSIUM 3.3 mmol/L (3.5-5.1)
[2020-06-16 08:52] LABS: CALCIUM 8.1 mg/dL (8.5-10.1)
[2020-06-16 08:53] LABS: ALBUMIN 2.2 g/dl (3.4-5.0); BLOOD UREA NITROGEN 6.8 mg/dL (7-18); MAGNESIUM 1.8 mg/dL (1.8-2.4)
[2020-06-16 08:56] LABS: CREATININE 0.3 mg/dL (0.55-1.3)
[2020-06-16 08:58] LABS: BILIRUBIN,TOTAL 0.2 mg/dL (0.2-1); TOT PROT 6.1 g/dl (6.4-8.2)
[2020-06-16] MEDS ORDERED: PT OWN MED DRAWER 7, Y5N ONE ×2 (11:00→13:07)
[2020-06-16] MEDS ORDERED: DEXTROSE 5%-WATER 100 ML IVPB ONE (11:00)
[2020-06-16] MEDS ORDERED: POTASSIUM CHLORIDE ORAL LIQUID 20 MEQ/15 ML PO ONE ×2 (11:00→15:00)
[2020-06-16] MEDS: PANTOPRAZOLE SODIUM 40 MG VIAL IVPUSH SCH (11:01)
[2020-06-16] MEDS: METOPROLOL TARTRATE 25 MG TABLET (FP) NGT SCH ×2 (11:01→22:57)
[2020-06-16] MEDS: LACTOBACILLUS ACIDOPHILUS 1 TABLET PO SCH (11:01)
[2020-06-16] MEDS: CEFTRIAXONE 2 GM in DEXTROSE 5%-WATER 2 GM/100 ML BAG IVPB SCH (11:01)
[2020-06-16] MEDS: THIAMINE HCL 200 MG/2 ML VIAL IVPB SCH (11:01)
[2020-06-16] MEDS: ENOXAPARIN NA (PORCINE) 80 MG/0.8 ML DISP.SYRIN SQ SCH ×2 (11:01→22:57)
[2020-06-16] MEDS: MULTIVIT-MINERALS ORAL LIQUID NGT SCH (11:02)
[2020-06-16] MEDS: INSULIN (LEVEMIR) 100 UNITS/ML UNITS SQ SCH ×2 (11:06→23:11)
[2020-06-16] MEDS: ACETAMINOPHEN 650 MG/20.3 ML ORAL SOLUTION (CUPS) NGT PRN (12:33)
[2020-06-16] MEDS: CASPOFUNGIN ACETATE 50 MG in SODIUM CHLORIDE 250 ML IVPB SCH (13:12)
[2020-06-16] MEDS: MORPHINE SULFATE 2 MG/ML VIAL IVPUSH PRN ×2 (15:13→22:57)
[2020-06-17] MEDS ORDERED: MELATONIN 5 MG TABLETS PO ONE (00:48)
[2020-06-17] MEDS: BANATROL PLUS POWDER PACKET PO SCH ×2 (05:11→14:03)
[2020-06-17] MEDS: INSULIN SLIDING SCALE (NOVOLOG) 1 VIAL SQ SCH ×4 (06:00→22:29)
[2020-06-17] MEDS: INSULIN (LEVEMIR) 100 UNITS/ML UNITS SQ SCH ×2 (06:47→22:31)
[2020-06-17] MEDS ORDERED: PT OWN MED DRAWER 7, Y5N ONE ×3 (09:57→14:43)
[2020-06-17] MEDS ORDERED: DEXTROSE 5%-WATER 100 ML IVPB ONE (09:57)
[2020-06-17] MEDS: METOPROLOL TARTRATE 25 MG TABLET (FP) NGT SCH ×2 (10:11→22:29)
[2020-06-17] MEDS: LACTOBACILLUS ACIDOPHILUS 1 TABLET PO SCH (10:11)
[2020-06-17] MEDS: MULTIVIT-MINERALS ORAL LIQUID NGT SCH (10:12)
[2020-06-17] MEDS: CEFTRIAXONE 2 GM in DEXTROSE 5%-WATER 2 GM/100 ML BAG IVPB SCH (10:12)
[2020-06-17] MEDS: PANTOPRAZOLE SODIUM 40 MG VIAL IVPUSH SCH (10:12)
[2020-06-17] MEDS: ENOXAPARIN NA (PORCINE) 80 MG/0.8 ML DISP.SYRIN SQ SCH ×2 (10:12→22:31)
[2020-06-17] MEDS: THIAMINE HCL 200 MG/2 ML VIAL IVPB SCH (10:17)
[2020-06-17] MEDS: ACETAMINOPHEN 650 MG/20.3 ML ORAL SOLUTION (CUPS) NGT PRN (12:50)
[2020-06-17] MEDS: CASPOFUNGIN ACETATE 50 MG in SODIUM CHLORIDE 250 ML IVPB SCH (15:04)
[2020-06-17 16:47] LABS: BASO % 0.6 % (0-2.0); EOS % 1.2 % (0-4.5); HEMATOCRIT 25.6 % (35.4-49); HEMOGLOBIN 8.6 GM/dL (11.7-16.9); LYMPH % 14.2 % (8-40); MCH 29.1 pg (25.7-33.7); MCHC 33.6 g/dl (32.0-35.9); MEAN CELL VOLUME 86.4 fl (80-96); MEAN PLT VOLUME 8.5 fl (7.5-11.1); MONO % 7.2 % (3.8-10.2); NEUT % 76.8 % (42.8-82.8); PLATELET COUNT 261 K/MM3 (134-434); RBC 2.96 M/mm3 (4.00-5.60); RDW 16.3 % (11.9-15.9); WHITE BLOOD COUNT 7.4 K/mm3 (4.0-10.0)
[2020-06-17 17:39] LABS: POTASSIUM 3.6 mmol/L (3.5-5.1)
[2020-06-17 17:41] LABS: CALCIUM 8.1 mg/dL (8.5-10.1)
[2020-06-17 17:42] LABS: ALBUMIN 2.2 g/dl (3.4-5.0); BLOOD UREA NITROGEN 7.8 mg/dL (7-18)
[2020-06-17 17:45] LABS: CREATININE 0.4 mg/dL (0.55-1.3)
[2020-06-17 17:46] LABS: BILIRUBIN,TOTAL 0.2 mg/dL (0.2-1)
[2020-06-17] MEDS: AMINO ACIDS/PROTEIN HYDROLYS 30 ML LIQUID.PKT PO SCH (17:49)
[2020-06-17 17:51] LABS: TOT PROT 6.3 g/dl (6.4-8.2)
[2020-06-17 18:17] LABS: ERYTHROCYTE SEDIMENTATION RATE 88 mm/hr (0-20)
[2020-06-17] MEDS: MELATONIN 5 MG TABLETS PO PRN (22:29)
[2020-06-17] MEDS: MORPHINE SULFATE 2 MG/ML VIAL IVPUSH PRN (22:35)
[2020-06-18] MEDS: ACETAMINOPHEN 650 MG/20.3 ML ORAL SOLUTION (CUPS) NGT PRN ×2 (01:40→09:07)
[2020-06-18] MEDS: INSULIN SLIDING SCALE (NOVOLOG) 1 VIAL SQ SCH ×4 (06:06→22:56)
[2020-06-18] MEDS: INSULIN (LEVEMIR) 100 UNITS/ML UNITS SQ SCH ×2 (06:06→22:53)
[2020-06-18] MEDS ORDERED: DEXTROSE 5%-WATER 100 ML IVPB ONE ×2 (08:54→09:05)
[2020-06-18] MEDS ORDERED: PT OWN MED DRAWER 7, Y5N ONE ×2 (08:55→11:21)
[2020-06-18] MEDS: CEFTRIAXONE 2 GM in DEXTROSE 5%-WATER 2 GM/100 ML BAG IVPB SCH (09:05)
[2020-06-18] MEDS: ENOXAPARIN NA (PORCINE) 80 MG/0.8 ML DISP.SYRIN SQ SCH ×2 (09:06→22:52)
[2020-06-18] MEDS: THIAMINE HCL 200 MG/2 ML VIAL IVPB SCH (09:07)
[2020-06-18] MEDS: PANTOPRAZOLE SODIUM 40 MG VIAL IVPUSH SCH (09:07)
[2020-06-18] MEDS: LACTOBACILLUS ACIDOPHILUS 1 TABLET PO SCH (09:07)
[2020-06-18] MEDS: METOPROLOL TARTRATE 25 MG TABLET (FP) NGT SCH ×2 (09:07→22:52)
[2020-06-18] MEDS: AMINO ACIDS/PROTEIN HYDROLYS 30 ML LIQUID.PKT PO SCH ×2 (09:07→17:21)
[2020-06-18 09:48] LABS: POTASSIUM 3.3 mmol/L (3.5-5.1)
[2020-06-18 09:49] LABS: BLOOD UREA NITROGEN 9.1 mg/dL (7-18)
[2020-06-18 09:50] LABS: ALBUMIN 2.3 g/dl (3.4-5.0); CALCIUM 8.3 mg/dL (8.5-10.1); MAGNESIUM 1.7 mg/dL (1.8-2.4)
[2020-06-18 09:54] LABS: CREATININE 0.3 mg/dL (0.55-1.3)
[2020-06-18 09:55] LABS: BILIRUBIN,TOTAL 0.3 mg/dL (0.2-1); TOT PROT 6.2 g/dl (6.4-8.2)
[2020-06-18] MEDS ORDERED: INSULIN (NOVOLOG) ASPART 100 UNITS/ML 10ML VIAL ONE ×2 (11:21→19:35)
[2020-06-18] MEDS: MORPHINE SULFATE 2 MG/ML VIAL IVPUSH PRN (11:53)
[2020-06-18] MEDS: MULTIVIT-MINERALS ORAL LIQUID NGT SCH (12:24)
[2020-06-18] MEDS: POLYETHYLENE GLYCOL 3350 119 GM BTL PO SCH (12:24)
[2020-06-18] MEDS: DOCUSATE NA 100 MG/10 ML UNIT-DOSE CUPS PO SCH ×2 (12:24→22:52)
[2020-06-18] MEDS ORDERED: D5-1/2NS+10 MEQ KCL - 10 MEQ/1,000 ML INFUS.BAG IV SCH (14:30)
[2020-06-18] MEDS: CASPOFUNGIN ACETATE 50 MG in SODIUM CHLORIDE 250 ML IVPB SCH (15:03)
[2020-06-18] MEDS ORDERED: MAGNESIUM SULF 50% (8.12 MEQ/2 ML-1 GM VIAL) IVPB ONE (17:11)
[2020-06-18] MEDS: KCL 10 MEQ IVPB 10 MEQ/100 ML INFUS.BAG IVPB SCH ×3 (17:23→22:54)
[2020-06-18] MEDS ORDERED: ACETAMINOPHEN 1000 MG/100 ML VIAL (NON FORMULARY) IVPB PRN (21:35)
[2020-06-18] MEDS: MELATONIN 5 MG TABLETS PO PRN (22:52)
[2020-06-18 22:57] LABS: EPI CELLS 2 /uL (0-25.1); HYALINE CASTS 13 /uL (0-3.1); URINE APPEARANCE TURBID; URINE BILIRUBIN NEGATIVE (NEGATIVE); URINE COLOR RED; URINE GLUCOSE (UA) NEGATIVE (NEGATIVE); URINE KETONE NEGATIVE (NEGATIVE); URINE LEUK ESTERASE 2+ (NEGATIVE); URINE NITRITE POSITIVE (NEGATIVE); URINE PROTEIN 1+ (NEGATIVE); URINE UROBILINOGEN 0.2 mg/dL (0.2-1.0); URINE WBC 620 /uL (0-25.8)
[2020-06-19 00:16] LABS: URINE BACTERIA 0 /uL (0-1359); URINE CRYSTALS NONE SEEN /hpf; URINE RBC 47146.2 /uL (0-23.9)
[2020-06-19 00:17] LABS: YEAST NONE SEEN (NEGATIVE)
[2020-06-19] MEDS: MORPHINE SULFATE 2 MG/ML VIAL IVPUSH PRN ×2 (00:56→23:11)
[2020-06-19] MEDS ORDERED: MAGNESIUM SULF 50% (8.12 MEQ/2 ML-1 GM VIAL) IVPB ONE (01:15)
[2020-06-19] MEDS ORDERED: DEXTROSE 50%-WATER - 25 GM/50 ML VIAL IVPUSH PRN (06:25)
[2020-06-19] MEDS ORDERED: DEXTROSE 50%-WATER - 25 GM/50 ML VIAL ONE (06:27)
[2020-06-19] MEDS: INSULIN (LEVEMIR) 100 UNITS/ML UNITS SQ SCH ×2 (06:28→22:51)
[2020-06-19] MEDS: INSULIN SLIDING SCALE (NOVOLOG) 1 VIAL SQ SCH ×4 (06:28→22:38)
[2020-06-19] MEDS ORDERED: ACETAMINOPHEN 1000 MG/100 ML VIAL (NON FORMULARY) IVPB ONE (06:52)
[2020-06-19 08:44] LABS: BASO % 0.9 % (0-2.0); EOS % 0.6 % (0-4.5); HEMATOCRIT 26.4 % (35.4-49); HEMOGLOBIN 8.8 GM/dL (11.7-16.9); LYMPH % 9.7 % (8-40); MCH 28.8 pg (25.7-33.7); MCHC 33.2 g/dl (32.0-35.9); MEAN CELL VOLUME 86.8 fl (80-96); MEAN PLT VOLUME 8.9 fl (7.5-11.1); MONO % 8.7 % (3.8-10.2); NEUT % 80.1 % (42.8-82.8); PLATELET COUNT 252 K/MM3 (134-434); RBC 3.04 M/mm3 (4.00-5.60); RDW 16.5 % (11.9-15.9); WHITE BLOOD COUNT 10.4 K/mm3 (4.0-10.0)
[2020-06-19 09:28] LABS: ALBUMIN 2.4 g/dl (3.4-5.0); BLOOD UREA NITROGEN 10.4 mg/dL (7-18)
[2020-06-19 09:31] LABS: CREATININE 0.2 mg/dL (0.55-1.3)
[2020-06-19 09:33] LABS: BILIRUBIN,TOTAL 0.7 mg/dL (0.2-1); TOT PROT 6.3 g/dl (6.4-8.2)
[2020-06-19 09:36] LABS: POTASSIUM 3.5 mmol/L (3.5-5.1)
[2020-06-19] MEDS ORDERED: PANTOPRAZOLE 40 MG TABLET PO SCH (10:00)
[2020-06-19] MEDS ORDERED: PT OWN MED DRAWER 7, Y5N ONE (10:44)
[2020-06-19] MEDS ORDERED: DEXTROSE 5%-WATER 100 ML IVPB ONE (10:45)
[2020-06-19] MEDS: AMINO ACIDS/PROTEIN HYDROLYS 30 ML LIQUID.PKT PO SCH (11:21)
[2020-06-19] MEDS: LACTOBACILLUS ACIDOPHILUS 1 TABLET PO SCH (11:22)
[2020-06-19] MEDS: DOCUSATE NA 100 MG/10 ML UNIT-DOSE CUPS PO SCH (11:23)
[2020-06-19] MEDS: METOPROLOL TARTRATE 25 MG TABLET (FP) NGT SCH ×2 (11:24→22:33)
[2020-06-19] MEDS: ENOXAPARIN NA (PORCINE) 80 MG/0.8 ML DISP.SYRIN SQ SCH ×2 (11:24→22:33)
[2020-06-19] MEDS: CEFTRIAXONE 2 GM in DEXTROSE 5%-WATER 2 GM/100 ML BAG IVPB SCH (11:26)
[2020-06-19] MEDS: POLYETHYLENE GLYCOL 3350 119 GM BTL PO SCH (11:33)
[2020-06-19] MEDS: THIAMINE HCL 200 MG/2 ML VIAL IVPB SCH (12:42)
[2020-06-19] MEDS: MULTIVIT-MINERALS ORAL LIQUID NGT SCH (12:46)
[2020-06-19] MEDS ORDERED: MULTIVIT-MINERALS ORAL LIQUID PO SCH (13:00)
[2020-06-19] MEDS ORDERED: PANTOPRAZOLE SOD 40 MG SUSPENSION PACKET NR SCH (13:39)
[2020-06-19] MEDS: CASPOFUNGIN ACETATE 50 MG in SODIUM CHLORIDE 250 ML IVPB SCH (15:54)
[2020-06-19] MEDS: AMINO ACIDS/PROTEIN HYDROLYS 30 ML LIQUID.PKT NGT SCH (18:20)
[2020-06-19] MEDS: DOCUSATE NA 100 MG/10 ML UNIT-DOSE CUPS NGT SCH (22:33)
[2020-06-20] MEDS: INSULIN SLIDING SCALE (NOVOLOG) 1 VIAL SQ SCH ×4 (06:28→21:05)
[2020-06-20] MEDS: INSULIN (LEVEMIR) 100 UNITS/ML UNITS SQ SCH (06:29)
[2020-06-20] MEDS ORDERED: DEXTROSE 5%-WATER 100 ML IVPB ONE (11:09)
[2020-06-20] MEDS ORDERED: PT OWN MED DRAWER 7, Y5N ONE (11:10)
[2020-06-20 11:13] LABS: BASO % 0.5 % (0-2.0); EOS % 0.8 % (0-4.5); HEMATOCRIT 24.5 % (35.4-49); HEMOGLOBIN 8.2 GM/dL (11.7-16.9); LYMPH % 11.2 % (8-40); MCH 28.9 pg (25.7-33.7); MCHC 33.3 g/dl (32.0-35.9); MEAN PLT VOLUME 8.8 fl (7.5-11.1); MONO % 9.2 % (3.8-10.2); NEUT % 78.3 % (42.8-82.8); PLATELET COUNT 210 K/MM3 (134-434); RBC 2.82 M/mm3 (4.00-5.60); RDW 16.4 % (11.9-15.9)
[2020-06-20] MEDS: CEFTRIAXONE 2 GM in DEXTROSE 5%-WATER 2 GM/100 ML BAG IVPB SCH (11:37)
[2020-06-20] MEDS: ENOXAPARIN NA (PORCINE) 80 MG/0.8 ML DISP.SYRIN SQ SCH (11:37)
[2020-06-20] MEDS: METOPROLOL TARTRATE 25 MG TABLET (FP) NGT SCH (11:38)
[2020-06-20] MEDS: THIAMINE HCL 100 MG TABLET (FP) NGT SCH (11:38)
[2020-06-20] MEDS: DOCUSATE NA 100 MG/10 ML UNIT-DOSE CUPS NGT SCH ×2 (11:38→22:01)
[2020-06-20] MEDS: MULTIVIT-MINERALS ORAL LIQUID NGT SCH (11:38)
[2020-06-20 11:39] LABS: POTASSIUM 3.1 mmol/L (3.5-5.1)
[2020-06-20] MEDS: LACTOBACILLUS ACIDOPHILUS 1 TABLET NGT SCH (11:39)
[2020-06-20] MEDS: POLYETHYLENE GLYCOL 3350 119 GM BTL NGT SCH (11:40)
[2020-06-20 11:41] LABS: CALCIUM 7.9 mg/dL (8.5-10.1)
[2020-06-20] MEDS: AMINO ACIDS/PROTEIN HYDROLYS 30 ML LIQUID.PKT NGT SCH ×2 (11:44→17:34)
[2020-06-20 11:45] LABS: CREATININE 0.3 mg/dL (0.55-1.3)
[2020-06-20] MEDS: CASPOFUNGIN ACETATE 50 MG in SODIUM CHLORIDE 250 ML IVPB SCH (14:41)
[2020-06-20] MEDS ORDERED: POTASSIUM CHLORIDE ORAL LIQUID 20 MEQ/15 ML PO ONE (16:02)
[2020-06-20] MEDS: KCL 10 MEQ IVPB 10 MEQ/100 ML INFUS.BAG IVPB SCH ×2 (17:30→23:37)
[2020-06-20] MEDS ORDERED: SODIUM CHLORIDE 1,000 ML IV SCH ×2 (18:15)
[2020-06-20] MEDS: ACETAMINOPHEN 1000 MG/100 ML VIAL (NON FORMULARY) IVPB PRN (20:16)
[2020-06-20] MEDS ORDERED: KCL 10 MEQ IVPB 10 MEQ/100 ML INFUS.BAG IVPB SCH (23:45)
[2020-06-21] MEDS: INSULIN SLIDING SCALE (NOVOLOG) 1 VIAL SQ SCH ×4 (06:40→23:29)
[2020-06-21] MEDS: AMINO ACIDS/PROTEIN HYDROLYS 30 ML LIQUID.PKT NGT SCH (08:02)
[2020-06-21] MEDS: POLYETHYLENE GLYCOL 3350 119 GM BTL NGT SCH (09:56)
[2020-06-21] MEDS: DOCUSATE NA 100 MG/10 ML UNIT-DOSE CUPS NGT SCH ×2 (09:56→23:20)
[2020-06-21] MEDS: MULTIVIT-MINERALS ORAL LIQUID NGT SCH (09:56)
[2020-06-21] MEDS: LACTOBACILLUS ACIDOPHILUS 1 TABLET NGT SCH (09:56)
[2020-06-21] MEDS: PANTOPRAZOLE SODIUM 40 MG VIAL IVPUSH SCH (09:56)
[2020-06-21] MEDS: THIAMINE HCL 100 MG TABLET (FP) NGT SCH (09:56)
[2020-06-21 11:36] LABS: HEMATOCRIT 24.2 % (35.4-49); HEMOGLOBIN 8.3 GM/dL (11.7-16.9); MCH 29.8 pg (25.7-33.7); MCHC 34.4 g/dl (32.0-35.9); MEAN CELL VOLUME 86.6 fl (80-96); MEAN PLT VOLUME 8.5 fl (7.5-11.1); PLATELET COUNT 214 K/MM3 (134-434); RBC 2.79 M/mm3 (4.00-5.60); RDW 16.1 % (11.9-15.9); WHITE BLOOD COUNT 6.7 K/mm3 (4.0-10.0)
[2020-06-21 11:47] LABS: INR 1.24 (0.83-1.09); PROTHROMBIN TIME (PATIENT) 15.2 SEC (9.7-13.0)
[2020-06-21 11:49] LABS: ACTIVATED PTT 37.8 SECONDS (25.2-36.5)
[2020-06-21 11:59] LABS: CALCIUM 7.9 mg/dL (8.5-10.1)
[2020-06-21 12:00] LABS: ALBUMIN 2.2 g/dl (3.4-5.0); BLOOD UREA NITROGEN 9.4 mg/dL (7-18); MAGNESIUM 1.7 mg/dL (1.8-2.4)
[2020-06-21 12:03] LABS: CREATININE 0.2 mg/dL (0.55-1.3)
[2020-06-21 12:05] LABS: BILIRUBIN,TOTAL 0.4 mg/dL (0.2-1)
[2020-06-21 13:26] VITALS: BMI 25.7
[2020-06-21] MEDS: KCL 10 MEQ IVPB 10 MEQ/100 ML INFUS.BAG IVPB SCH ×3 (14:33→20:04)
[2020-06-21] MEDS ORDERED: MAGNESIUM SULF 50% (8.12 MEQ/2 ML-1 GM VIAL) IVPB ONE (14:48)
[2020-06-21] MEDS: POTASSIUM CHLORIDE 40 MEQ in AMINO ACIDS 4.25%/D5W 1,000 ML IV SCH (17:27)
[2020-06-21] MEDS: ACETAMINOPHEN 1000 MG/100 ML VIAL (NON FORMULARY) IVPB PRN (18:00)
[2020-06-21] MEDS ORDERED: DEXTROSE 5%-WATER 100 ML IVPB ONE (19:56)
[2020-06-21] MEDS ORDERED: PIPERACILLIN/TAZOBACTAM 4.5 GM VIAL IVPB ONE (19:56)
[2020-06-21] MEDS: PIPERACILLIN/TAZOB 4.5 GM 4.5 GM in DEXTROSE 5%-WATER 100 ML IVPB SCH (23:19)
[2020-06-21] MEDS: ENOXAPARIN NA (PORCINE) 80 MG/0.8 ML DISP.SYRIN SQ SCH (23:30)
[2020-06-22] MEDS ORDERED: DEXTROSE 5%-WATER 100 ML IVPB ONE ×3 (02:28→16:40)
[2020-06-22] MEDS ORDERED: PIPERACILLIN/TAZOBACTAM 4.5 GM VIAL IVPB ONE ×3 (02:28→16:40)
[2020-06-22] MEDS: PIPERACILLIN/TAZOB 4.5 GM 4.5 GM in DEXTROSE 5%-WATER 100 ML IVPB SCH ×3 (02:52→17:04)
[2020-06-22] MEDS: MORPHINE SULFATE 2 MG/ML VIAL IVPUSH PRN ×2 (02:54→21:43)
[2020-06-22] MEDS: POTASSIUM CHLORIDE 40 MEQ in AMINO ACIDS 4.25%/D5W 1,000 ML IV SCH ×3 (06:18→19:51)
[2020-06-22] MEDS: INSULIN SLIDING SCALE (NOVOLOG) 1 VIAL SQ SCH ×4 (06:31→21:43)
[2020-06-22 08:48] LABS: HEMATOCRIT 25.2 % (35.4-49); HEMOGLOBIN 8.6 GM/dL (11.7-16.9); MCH 29.4 pg (25.7-33.7); MEAN CELL VOLUME 86.3 fl (80-96); MEAN PLT VOLUME 8.2 fl (7.5-11.1); PLATELET COUNT 241 K/MM3 (134-434); RBC 2.92 M/mm3 (4.00-5.60); RDW 15.8 % (11.9-15.9); WHITE BLOOD COUNT 5.6 K/mm3 (4.0-10.0)
[2020-06-22 09:05] LABS: POTASSIUM 3.5 mmol/L (3.5-5.1)
[2020-06-22 09:10] LABS: CALCIUM 8.3 mg/dL (8.5-10.1)
[2020-06-22 09:11] LABS: ALBUMIN 2.3 g/dl (3.4-5.0); BLOOD UREA NITROGEN 11.8 mg/dL (7-18)
[2020-06-22 09:14] LABS: CREATININE 0.3 mg/dL (0.55-1.3); PHOSPHOROUS 2.6 mg/dL (2.5-4.9)
[2020-06-22 09:15] LABS: BILIRUBIN,TOTAL 0.5 mg/dL (0.2-1); TOT PROT 6.4 g/dl (6.4-8.2)
[2020-06-22] MEDS: LACTOBACILLUS ACIDOPHILUS 1 TABLET NGT SCH (10:30)
[2020-06-22] MEDS: THIAMINE HCL 100 MG TABLET (FP) NGT SCH (10:31)
[2020-06-22] MEDS: POLYETHYLENE GLYCOL 3350 119 GM BTL NGT SCH (10:31)
[2020-06-22] MEDS: MULTIVIT-MINERALS ORAL LIQUID NGT SCH (10:31)
[2020-06-22] MEDS: DOCUSATE NA 100 MG/10 ML UNIT-DOSE CUPS NGT SCH ×2 (10:31→21:43)
[2020-06-22] MEDS: ENOXAPARIN NA (PORCINE) 80 MG/0.8 ML DISP.SYRIN SQ SCH ×2 (10:33→21:43)
[2020-06-22] MEDS: PANTOPRAZOLE SODIUM 40 MG VIAL IVPUSH SCH (10:35)
[2020-06-23] MEDS ORDERED: ACETAMINOPHEN 1000 MG/100 ML VIAL (NON FORMULARY) IVPB ONE (00:15)
[2020-06-23] MEDS ORDERED: DEXTROSE 5%-WATER 100 ML IVPB ONE ×3 (02:13→16:35)
[2020-06-23] MEDS ORDERED: PIPERACILLIN/TAZOBACTAM 4.5 GM VIAL IVPB ONE ×3 (02:13→16:35)
[2020-06-23] MEDS: PIPERACILLIN/TAZOB 4.5 GM 4.5 GM in DEXTROSE 5%-WATER 100 ML IVPB SCH ×3 (03:02→17:07)
[2020-06-23] MEDS: POTASSIUM CHLORIDE 40 MEQ in AMINO ACIDS 4.25%/D5W 1,000 ML IV SCH ×3 (03:10→22:56)
[2020-06-23] MEDS: INSULIN SLIDING SCALE (NOVOLOG) 1 VIAL SQ SCH ×4 (06:10→22:17)
[2020-06-23] MEDS: MORPHINE SULFATE 2 MG/ML VIAL IVPUSH PRN ×3 (08:11→21:11)
[2020-06-23] MEDS: ENOXAPARIN NA (PORCINE) 80 MG/0.8 ML DISP.SYRIN SQ SCH (10:11)
[2020-06-23 10:15] LABS: HEMOGLOBIN 9.5 GM/dL (11.7-16.9); MCH 29.2 pg (25.7-33.7); MCHC 33.9 g/dl (32.0-35.9); MEAN CELL VOLUME 86.3 fl (80-96); PLATELET COUNT 200 K/MM3 (134-434); RBC 3.24 M/mm3 (4.00-5.60); RDW 15.4 % (11.9-15.9); WHITE BLOOD COUNT 6.3 K/mm3 (4.0-10.0)
[2020-06-23] MEDS: LACTOBACILLUS ACIDOPHILUS 1 TABLET NGT SCH (10:20)
[2020-06-23] MEDS: DOCUSATE NA 100 MG/10 ML UNIT-DOSE CUPS NGT SCH ×2 (10:21→21:06)
[2020-06-23] MEDS: POLYETHYLENE GLYCOL 3350 119 GM BTL NGT SCH (10:21)
[2020-06-23] MEDS: THIAMINE HCL 100 MG TABLET (FP) NGT SCH (10:21)
[2020-06-23] MEDS: MULTIVIT-MINERALS ORAL LIQUID NGT SCH (10:21)
[2020-06-23 10:44] LABS: POTASSIUM 4.4 mmol/L (3.5-5.1)
[2020-06-23 10:45] LABS: CALCIUM 7.5 mg/dL (8.5-10.1)
[2020-06-23 10:46] LABS: BLOOD UREA NITROGEN 10.4 mg/dL (7-18); MAGNESIUM 1.6 mg/dL (1.8-2.4)
[2020-06-23 10:49] LABS: CREATININE 0.2 mg/dL (0.55-1.3); PHOSPHOROUS 2.5 mg/dL (2.5-4.9)
[2020-06-23] MEDS: PANTOPRAZOLE SODIUM 40 MG VIAL IVPUSH SCH (10:53)
[2020-06-23] MEDS ORDERED: MAGNESIUM SULF 50% (8.12 MEQ/2 ML-1 GM VIAL) IVPB ONE (11:00)
[2020-06-23] MEDS ORDERED: LIDOCAINE VISCOUS 2% ORAL/TOP 100 ML BOTTLE MM ONE (21:24)
[2020-06-23] MEDS ORDERED: OXYMETAZOLINE 0.05% NASAL SOLUTION 15 ML BOTTLE NS ONE (21:25)
[2020-06-23] MEDS ORDERED: LIDOCAINE HCL 2% JELLY (5 ML/TUBE) MM ONE (21:30)
[2020-06-24] MEDS: POTASSIUM CHLORIDE 40 MEQ in AMINO ACIDS 4.25%/D5W 1,000 ML IV SCH ×2 (00:19→15:44)
[2020-06-24] MEDS ORDERED: PIPERACILLIN/TAZOBACTAM 4.5 GM VIAL IVPB ONE ×3 (02:29→17:06)
[2020-06-24] MEDS ORDERED: DEXTROSE 5%-WATER 100 ML IVPB ONE ×3 (02:29→17:06)
[2020-06-24] MEDS: PIPERACILLIN/TAZOB 4.5 GM 4.5 GM in DEXTROSE 5%-WATER 100 ML IVPB SCH ×3 (02:36→17:21)
[2020-06-24] MEDS: INSULIN SLIDING SCALE (NOVOLOG) 1 VIAL SQ SCH ×4 (08:21→22:20)
[2020-06-24] MEDS ORDERED: PT OWN MED DRAWER 7, Y5N ONE (09:28)
[2020-06-24] MEDS: LACTOBACILLUS ACIDOPHILUS 1 TABLET NGT SCH (11:26)
[2020-06-24] MEDS: MULTIVIT-MINERALS ORAL LIQUID NGT SCH (11:27)
[2020-06-24] MEDS: THIAMINE HCL 100 MG TABLET (FP) NGT SCH (11:27)
[2020-06-24] MEDS: POLYETHYLENE GLYCOL 3350 119 GM BTL NGT SCH (11:27)
[2020-06-24] MEDS: DOCUSATE NA 100 MG/10 ML UNIT-DOSE CUPS NGT SCH ×2 (11:27→22:20)
[2020-06-24] MEDS: PANTOPRAZOLE SODIUM 40 MG VIAL IVPUSH SCH (11:29)
[2020-06-24] MEDS: MORPHINE SULFATE 2 MG/ML VIAL IVPUSH PRN ×3 (11:31→22:43)
[2020-06-24 12:24] LABS: HEMATOCRIT 28.7 % (35.4-49); HEMOGLOBIN 9.8 GM/dL (11.7-16.9); MCH 29.3 pg (25.7-33.7); MCHC 34.1 g/dl (32.0-35.9); MEAN CELL VOLUME 85.9 fl (80-96); MEAN PLT VOLUME 7.6 fl (7.5-11.1); PLATELET COUNT 301 K/MM3 (134-434); RBC 3.34 M/mm3 (4.00-5.60); RDW 15.6 % (11.9-15.9); WHITE BLOOD COUNT 6.7 K/mm3 (4.0-10.0)
[2020-06-24 12:33] LABS: INR 1.4 (0.83-1.09); PROTHROMBIN TIME (PATIENT) 16.8 SEC (9.7-13.0)
[2020-06-24 12:36] LABS: ACTIVATED PTT 33.1 SECONDS (25.2-36.5)
[2020-06-24 12:44] LABS: POTASSIUM 3.9 mmol/L (3.5-5.1)
[2020-06-24 12:48] LABS: ALBUMIN 2.7 g/dl (3.4-5.0); BLOOD UREA NITROGEN 11.2 mg/dL (7-18); MAGNESIUM 1.8 mg/dL (1.8-2.4)
[2020-06-24 12:51] LABS: CREATININE 0.3 mg/dL (0.55-1.3); PHOSPHOROUS 2.7 mg/dL (2.5-4.9)
[2020-06-24 12:53] LABS: BILIRUBIN,TOTAL 0.3 mg/dL (0.2-1); TOT PROT 7.3 g/dl (6.4-8.2)
[2020-06-24 12:55] LABS: CALCIUM 8.9 mg/dL (8.5-10.1)
[2020-06-24] MEDS ORDERED: HEPARIN NA (PORCINE) 5,000 UNITS/ML 1ML VIAL IVPUSH PRN (14:20)
[2020-06-24] MEDS: HEPARIN SOD,PORK IN 0.45% NACL 25,000 UNITS/500 ML INFUS.BAG IVPB SCH (15:46)
[2020-06-24] MEDS: METOPROLOL TARTRATE 25 MG TABLET (FP) NGT SCH (22:20)
[2020-06-24] MEDS: INSULIN (LEVEMIR) 100 UNITS/ML UNITS SQ SCH (22:22)
[2020-06-25] MEDS ORDERED: PIPERACILLIN/TAZOBACTAM 4.5 GM VIAL IVPB ONE ×3 (00:09→19:36)
[2020-06-25] MEDS ORDERED: DEXTROSE 5%-WATER 100 ML IVPB ONE ×3 (00:09→19:36)
[2020-06-25] MEDS: HEPARIN NA (PORCINE) 5,000 UNITS/ML 1ML VIAL IVPUSH PRN ×2 (00:16→10:13)
[2020-06-25] MEDS: PIPERACILLIN/TAZOB 4.5 GM 4.5 GM in DEXTROSE 5%-WATER 100 ML IVPB SCH ×3 (01:31→19:43)
[2020-06-25] MEDS: MORPHINE SULFATE 2 MG/ML VIAL IVPUSH PRN ×4 (04:30→21:14)
[2020-06-25] MEDS: POTASSIUM CHLORIDE 40 MEQ in AMINO ACIDS 4.25%/D5W 1,000 ML IV SCH ×2 (06:23→18:49)
[2020-06-25] MEDS: INSULIN SLIDING SCALE (NOVOLOG) 1 VIAL SQ SCH ×4 (06:24→21:25)
[2020-06-25] MEDS: INSULIN (LEVEMIR) 100 UNITS/ML UNITS SQ SCH ×2 (06:24→21:25)
[2020-06-25] MEDS: POLYETHYLENE GLYCOL 3350 119 GM BTL NGT SCH (10:11)
[2020-06-25] MEDS: MULTIVIT-MINERALS ORAL LIQUID NGT SCH (10:11)
[2020-06-25] MEDS: METOPROLOL TARTRATE 25 MG TABLET (FP) NGT SCH ×2 (10:11→21:13)
[2020-06-25] MEDS: LACTOBACILLUS ACIDOPHILUS 1 TABLET NGT SCH (10:11)
[2020-06-25] MEDS: DOCUSATE NA 100 MG/10 ML UNIT-DOSE CUPS NGT SCH ×2 (10:11→21:13)
[2020-06-25] MEDS: THIAMINE HCL 100 MG TABLET (FP) NGT SCH (10:12)
[2020-06-25] MEDS: PANTOPRAZOLE SODIUM 40 MG VIAL IVPUSH SCH (10:14)
[2020-06-25] MEDS ORDERED: PT OWN MED DRAWER 7, Y5N ONE (14:12)
[2020-06-25] MEDS ORDERED: PHYTONADIONE 10 MG/1 ML AMP IVPB ONE (14:33)
[2020-06-25] MEDS: HEPARIN SOD,PORK IN 0.45% NACL 25,000 UNITS/500 ML INFUS.BAG IVPB SCH (18:41)
[2020-06-26] MEDS ORDERED: DEXTROSE 5%-WATER 100 ML IVPB ONE ×3 (01:18→18:07)
[2020-06-26] MEDS ORDERED: PIPERACILLIN/TAZOBACTAM 4.5 GM VIAL IVPB ONE ×3 (01:18→18:07)
[2020-06-26] MEDS: PIPERACILLIN/TAZOB 4.5 GM 4.5 GM in DEXTROSE 5%-WATER 100 ML IVPB SCH ×3 (01:30→18:55)
[2020-06-26] MEDS: MORPHINE SULFATE 2 MG/ML VIAL IVPUSH PRN ×5 (01:31→22:19)
[2020-06-26] MEDS: INSULIN SLIDING SCALE (NOVOLOG) 1 VIAL SQ SCH ×4 (06:22→22:20)
[2020-06-26] MEDS: INSULIN (LEVEMIR) 100 UNITS/ML UNITS SQ SCH ×2 (06:22→22:20)
[2020-06-26] MEDS: POTASSIUM CHLORIDE 40 MEQ in AMINO ACIDS 4.25%/D5W 1,000 ML IV SCH ×3 (06:51→22:21)
[2020-06-26] MEDS ORDERED: PT OWN MED DRAWER 7, Y5N ONE ×2 (08:00→20:58)
[2020-06-26 08:48] LABS: INR 1.33 (0.83-1.09)
[2020-06-26 09:28] LABS: HEMATOCRIT 27.5 % (35.4-49); HEMOGLOBIN 9.3 GM/dL (11.7-16.9); MCH 29.2 pg (25.7-33.7); MCHC 33.8 g/dl (32.0-35.9); MEAN CELL VOLUME 86.6 fl (80-96); MEAN PLT VOLUME 8.8 fl (7.5-11.1); PLATELET COUNT 257 K/MM3 (134-434); RBC 3.17 M/mm3 (4.00-5.60); RDW 15.8 % (11.9-15.9)
[2020-06-26] MEDS: LACTOBACILLUS ACIDOPHILUS 1 TABLET NGT SCH (10:06)
[2020-06-26] MEDS: DOCUSATE NA 100 MG/10 ML UNIT-DOSE CUPS NGT SCH ×2 (10:07→22:21)
[2020-06-26] MEDS: METOPROLOL TARTRATE 25 MG TABLET (FP) NGT SCH ×2 (10:07→22:21)
[2020-06-26] MEDS: MULTIVIT-MINERALS ORAL LIQUID NGT SCH (10:07)
[2020-06-26] MEDS: POLYETHYLENE GLYCOL 3350 119 GM BTL NGT SCH (10:07)
[2020-06-26] MEDS: THIAMINE HCL 100 MG TABLET (FP) NGT SCH (10:07)
[2020-06-26 10:40] LABS: ALBUMIN 2.8 g/dl (3.4-5.0); BILIRUBIN,TOTAL 0.3 mg/dL (0.2-1); BLOOD UREA NITROGEN 11.2 mg/dL (7-18); CALCIUM 9.2 mg/dL (8.5-10.1); CREATININE 0.4 mg/dL (0.55-1.3); POTASSIUM 3.4 mmol/L (3.5-5.1); TOT PROT 7.3 g/dl (6.4-8.2)
[2020-06-26] MEDS: PANTOPRAZOLE SODIUM 40 MG VIAL IVPUSH SCH (10:51)
[2020-06-26] MEDS ORDERED: PHYTONADIONE 10 MG/1 ML AMP IVPB ONE (11:30)
[2020-06-26] MEDS: HEPARIN NA (PORCINE) 5,000 UNITS/ML 1ML VIAL IVPUSH PRN (13:48)
[2020-06-26] MEDS: KCL 10 MEQ IVPB 10 MEQ/100 ML INFUS.BAG IVPB SCH ×2 (15:40→17:22)
[2020-06-26] MEDS: HEPARIN SOD,PORK IN 0.45% NACL 25,000 UNITS/500 ML INFUS.BAG IVPB SCH (18:25)
[2020-06-27] MEDS ORDERED: PIPERACILLIN/TAZOBACTAM 4.5 GM VIAL IVPB ONE ×3 (01:20→18:00)
[2020-06-27] MEDS ORDERED: DEXTROSE 5%-WATER 100 ML IVPB ONE ×3 (01:20→18:01)
[2020-06-27] MEDS: PIPERACILLIN/TAZOB 4.5 GM 4.5 GM in DEXTROSE 5%-WATER 100 ML IVPB SCH ×3 (01:21→18:03)
[2020-06-27] MEDS: MORPHINE SULFATE 2 MG/ML VIAL IVPUSH PRN ×5 (03:17→20:26)
[2020-06-27] MEDS: INSULIN SLIDING SCALE (NOVOLOG) 1 VIAL SQ SCH ×4 (06:06→21:51)
[2020-06-27] MEDS: INSULIN (LEVEMIR) 100 UNITS/ML UNITS SQ SCH ×2 (06:06→21:51)
[2020-06-27] MEDS ORDERED: PT OWN MED DRAWER 7, Y5N ONE (06:43)
[2020-06-27 09:33] LABS: HEMATOCRIT 27.8 % (35.4-49); HEMOGLOBIN 9.6 GM/dL (11.7-16.9); MCH 29.7 pg (25.7-33.7); MCHC 34.4 g/dl (32.0-35.9); MEAN CELL VOLUME 86.1 fl (80-96); MEAN PLT VOLUME 8.1 fl (7.5-11.1); PLATELET COUNT 306 K/MM3 (134-434); RBC 3.23 M/mm3 (4.00-5.60); RDW 15.8 % (11.9-15.9); WHITE BLOOD COUNT 6.6 K/mm3 (4.0-10.0)
[2020-06-27 09:40] LABS: INR 1.24 (0.83-1.09); PROTHROMBIN TIME (PATIENT) 15.1 SEC (9.7-13.0)
[2020-06-27 09:58] LABS: POTASSIUM 4.1 mmol/L (3.5-5.1)
[2020-06-27] MEDS: PANTOPRAZOLE SODIUM 40 MG VIAL IVPUSH SCH (10:09)
[2020-06-27] MEDS: LACTOBACILLUS ACIDOPHILUS 1 TABLET NGT SCH (10:13)
[2020-06-27 10:14] LABS: CALCIUM 9.2 mg/dL (8.5-10.1)
[2020-06-27] MEDS: POLYETHYLENE GLYCOL 3350 119 GM BTL NGT SCH (10:14)
[2020-06-27] MEDS: METOPROLOL TARTRATE 25 MG TABLET (FP) NGT SCH ×2 (10:14→21:52)
[2020-06-27] MEDS: MULTIVIT-MINERALS ORAL LIQUID NGT SCH (10:14)
[2020-06-27] MEDS: DOCUSATE NA 100 MG/10 ML UNIT-DOSE CUPS NGT SCH ×2 (10:14→21:50)
[2020-06-27] MEDS: THIAMINE HCL 100 MG TABLET (FP) NGT SCH (10:14)
[2020-06-27 10:15] LABS: BLOOD UREA NITROGEN 10.8 mg/dL (7-18); MAGNESIUM 1.7 mg/dL (1.8-2.4)
[2020-06-27 10:16] LABS: BILIRUBIN,TOTAL 0.4 mg/dL (0.2-1)
[2020-06-27 10:18] LABS: CREATININE 0.3 mg/dL (0.55-1.3); TOT PROT 7.4 g/dl (6.4-8.2)
[2020-06-27] MEDS: HEPARIN NA (PORCINE) 5,000 UNITS/ML 1ML VIAL IVPUSH PRN (10:39)
[2020-06-27] MEDS ORDERED: MAGNESIUM SULF 50% (8.12 MEQ/2 ML-1 GM VIAL) IVPB ONE (12:00)
[2020-06-27] MEDS ORDERED: MAGNESIUM SULF 50% (8.12 MEQ/2 ML-1 GM VIAL) ONE (12:35)
[2020-06-27] MEDS: POTASSIUM CHLORIDE 40 MEQ in AMINO ACIDS 4.25%/D5W 1,000 ML IV SCH (12:47)
[2020-06-27] MEDS: HEPARIN SOD,PORK IN 0.45% NACL 25,000 UNITS/500 ML INFUS.BAG IVPB SCH (15:55)
[2020-06-28] MEDS ORDERED: PIPERACILLIN/TAZOBACTAM 4.5 GM VIAL IVPB ONE ×3 (00:33→17:01)
[2020-06-28] MEDS ORDERED: DEXTROSE 5%-WATER 100 ML IVPB ONE ×3 (00:34→17:01)
[2020-06-28] MEDS: MORPHINE SULFATE 2 MG/ML VIAL IVPUSH PRN ×5 (00:50→20:54)
[2020-06-28] MEDS: PIPERACILLIN/TAZOB 4.5 GM 4.5 GM in DEXTROSE 5%-WATER 100 ML IVPB SCH ×3 (00:59→17:07)
[2020-06-28] MEDS: POTASSIUM CHLORIDE 40 MEQ in AMINO ACIDS 4.25%/D5W 1,000 ML IV SCH ×2 (02:18→18:06)
[2020-06-28] MEDS: INSULIN SLIDING SCALE (NOVOLOG) 1 VIAL SQ SCH ×4 (06:24→21:19)
[2020-06-28] MEDS: INSULIN (LEVEMIR) 100 UNITS/ML UNITS SQ SCH ×2 (06:24→21:18)
[2020-06-28 08:41] LABS: HEMATOCRIT 29.2 % (35.4-49); HEMOGLOBIN 9.8 GM/dL (11.7-16.9); MCH 29.5 pg (25.7-33.7); MCHC 33.6 g/dl (32.0-35.9); MEAN PLT VOLUME 8.1 fl (7.5-11.1); PLATELET COUNT 293 K/MM3 (134-434); RBC 3.32 M/mm3 (4.00-5.60); RDW 16.1 % (11.9-15.9); WHITE BLOOD COUNT 5.8 K/mm3 (4.0-10.0)
[2020-06-28 08:49] LABS: INR 1.18 (0.83-1.09); PROTHROMBIN TIME (PATIENT) 14.2 SEC (9.7-13.0)
[2020-06-28 08:52] LABS: ACTIVATED PTT 36.8 SECONDS (25.2-36.5)
[2020-06-28 09:04] LABS: POTASSIUM 3.8 mmol/L (3.5-5.1)
[2020-06-28 09:07] LABS: ALBUMIN 3.3 g/dl (3.4-5.0); BLOOD UREA NITROGEN 12.9 mg/dL (7-18); MAGNESIUM 1.8 mg/dL (1.8-2.4)
[2020-06-28 09:10] LABS: CREATININE 0.3 mg/dL (0.55-1.3)
[2020-06-28 09:12] LABS: BILIRUBIN,TOTAL 0.4 mg/dL (0.2-1); TOT PROT 7.5 g/dl (6.4-8.2)
[2020-06-28] MEDS: PANTOPRAZOLE SODIUM 40 MG VIAL IVPUSH SCH (10:46)
[2020-06-28] MEDS: LACTOBACILLUS ACIDOPHILUS 1 TABLET NGT SCH (10:51)
[2020-06-28] MEDS: DOCUSATE NA 100 MG/10 ML UNIT-DOSE CUPS NGT SCH (10:51)
[2020-06-28] MEDS: METOPROLOL TARTRATE 25 MG TABLET (FP) NGT SCH (10:51)
[2020-06-28] MEDS: POLYETHYLENE GLYCOL 3350 119 GM BTL NGT SCH (10:51)
[2020-06-28] MEDS: MULTIVIT-MINERALS ORAL LIQUID NGT SCH (10:51)
[2020-06-28] MEDS: THIAMINE HCL 100 MG TABLET (FP) NGT SCH (10:52)
[2020-06-28] MEDS: ACETAMINOPHEN 650 MG/20.3 ML ORAL SOLUTION (CUPS) NGT PRN (19:44)
[2020-06-28] MEDS: MELATONIN 5 MG TABLETS NR PRN (21:19)
[2020-06-28] MEDS: METOPROLOL TARTRATE 25 MG TABLET (FP) GT SCH (21:20)
[2020-06-28 22:55] LABS: HEMATOCRIT 28.1 % (35.4-49); HEMOGLOBIN 9.2 GM/dL (11.7-16.9); MCH 28.7 pg (25.7-33.7); MCHC 32.6 g/dl (32.0-35.9); MEAN PLT VOLUME 8.2 fl (7.5-11.1); PLATELET COUNT 269 K/MM3 (134-434); RDW 16.3 % (11.9-15.9); WHITE BLOOD COUNT 8.7 K/mm3 (4.0-10.0)
[2020-06-29] MEDS ORDERED: DEXTROSE 5%-WATER 100 ML IVPB ONE ×4 (01:01→23:10)
[2020-06-29] MEDS ORDERED: PIPERACILLIN/TAZOBACTAM 4.5 GM VIAL IVPB ONE ×4 (01:01→23:10)
[2020-06-29] MEDS: MORPHINE SULFATE 2 MG/ML VIAL IVPUSH PRN ×6 (01:06→23:57)
[2020-06-29] MEDS: PIPERACILLIN/TAZOB 4.5 GM 4.5 GM in DEXTROSE 5%-WATER 100 ML IVPB SCH ×3 (01:07→18:36)
[2020-06-29] MEDS: ACETAMINOPHEN 650 MG/20.3 ML ORAL SOLUTION (CUPS) NGT PRN (04:00)
[2020-06-29] MEDS: INSULIN (LEVEMIR) 100 UNITS/ML UNITS SQ SCH ×2 (06:06→21:01)
[2020-06-29] MEDS: INSULIN SLIDING SCALE (NOVOLOG) 1 VIAL SQ SCH ×4 (06:06→21:01)
[2020-06-29] MEDS ORDERED: PT OWN MED DRAWER 7, Y5N ONE ×2 (09:50→17:40)
[2020-06-29] MEDS: METOPROLOL TARTRATE 25 MG TABLET (FP) GT SCH ×2 (09:58→21:01)
[2020-06-29] MEDS: FAMOTIDINE 40 MG/5 ML ORAL SUSPENSION PEG SCH (09:58)
[2020-06-29] MEDS: THIAMINE HCL 100 MG TABLET (FP) NGT SCH (09:58)
[2020-06-29] MEDS: MULTIVIT-MINERALS ORAL LIQUID NGT SCH (09:59)
[2020-06-29] MEDS: LACTOBACILLUS ACIDOPHILUS 1 TABLET NGT SCH (09:59)
[2020-06-29] MEDS: POLYETHYLENE GLYCOL 3350 119 GM BTL GT SCH (10:01)
[2020-06-29 11:24] LABS: HEMATOCRIT 29.6 % (35.4-49); HEMOGLOBIN 9.9 GM/dL (11.7-16.9); MCH 29.3 pg (25.7-33.7); MCHC 33.5 g/dl (32.0-35.9); MEAN CELL VOLUME 87.5 fl (80-96); MEAN PLT VOLUME 8.5 fl (7.5-11.1); PLATELET COUNT 283 K/MM3 (134-434); RBC 3.38 M/mm3 (4.00-5.60); RDW 16.7 % (11.9-15.9)
[2020-06-29 11:52] LABS: POTASSIUM 3.9 mmol/L (3.5-5.1)
[2020-06-29 11:58] LABS: ALBUMIN 3.2 g/dl (3.4-5.0); BLOOD UREA NITROGEN 13.6 mg/dL (7-18)
[2020-06-29 12:01] LABS: CREATININE 0.4 mg/dL (0.55-1.3)
[2020-06-29 12:03] LABS: BILIRUBIN,TOTAL 0.3 mg/dL (0.2-1); TOT PROT 7.5 g/dl (6.4-8.2)
[2020-06-29] MEDS: COLLAGENASE CLOSTRIDIUM HIST. 30 GRAMS TUBE TP SCH (18:36)
[2020-06-29] MEDS ORDERED: INSULIN (NOVOLOG) ASPART 100 UNITS/ML 10ML VIAL ONE (20:30)
[2020-06-30] MEDS: PIPERACILLIN/TAZOB 4.5 GM 4.5 GM in DEXTROSE 5%-WATER 100 ML IVPB SCH ×3 (01:30→18:11)
[2020-06-30] MEDS: MORPHINE SULFATE 2 MG/ML VIAL IVPUSH PRN ×4 (04:35→20:14)
[2020-06-30] MEDS: INSULIN (LEVEMIR) 100 UNITS/ML UNITS SQ SCH ×2 (06:02→22:27)
[2020-06-30] MEDS: INSULIN SLIDING SCALE (NOVOLOG) 1 VIAL SQ SCH ×4 (06:05→22:27)
[2020-06-30 08:22] LABS: BASO % 0.4 % (0-2.0); EOS % 0.5 % (0-4.5); HEMATOCRIT 29.7 % (35.4-49); HEMOGLOBIN 10.1 GM/dL (11.7-16.9); LYMPH % 13.3 % (8-40); MCH 29.6 pg (25.7-33.7); MEAN PLT VOLUME 8.3 fl (7.5-11.1); NEUT % 76.8 % (42.8-82.8); PLATELET COUNT 278 K/MM3 (134-434); RBC 3.41 M/mm3 (4.00-5.60); RDW 16.9 % (11.9-15.9); WHITE BLOOD COUNT 10.2 K/mm3 (4.0-10.0)
[2020-06-30 08:38] LABS: POTASSIUM 3.8 mmol/L (3.5-5.1)
[2020-06-30 08:40] LABS: ALBUMIN 3.1 g/dl (3.4-5.0); BLOOD UREA NITROGEN 12.3 mg/dL (7-18); CALCIUM 9.1 mg/dL (8.5-10.1)
[2020-06-30 08:43] LABS: CREATININE 0.4 mg/dL (0.55-1.3)
[2020-06-30 08:45] LABS: BILIRUBIN,TOTAL 0.3 mg/dL (0.2-1); TOT PROT 7.3 g/dl (6.4-8.2)
[2020-06-30] MEDS ORDERED: PIPERACILLIN/TAZOBACTAM 4.5 GM VIAL IVPB ONE ×2 (10:19→18:00)
[2020-06-30] MEDS ORDERED: DEXTROSE 5%-WATER 100 ML IVPB ONE ×2 (10:20→18:01)
[2020-06-30] MEDS: FAMOTIDINE 40 MG/5 ML ORAL SUSPENSION PEG SCH (10:23)
[2020-06-30] MEDS: LACTOBACILLUS ACIDOPHILUS 1 TABLET NGT SCH (10:23)
[2020-06-30] MEDS: METOPROLOL TARTRATE 25 MG TABLET (FP) GT SCH ×2 (10:23→22:27)
[2020-06-30] MEDS: THIAMINE HCL 100 MG TABLET (FP) NGT SCH (10:24)
[2020-06-30] MEDS: MULTIVIT-MINERALS ORAL LIQUID NGT SCH (10:24)
[2020-06-30] MEDS: POLYETHYLENE GLYCOL 3350 119 GM BTL GT SCH (10:24)
[2020-06-30] MEDS: COLLAGENASE CLOSTRIDIUM HIST. 30 GRAMS TUBE TP SCH (10:25)
[2020-07-01] MEDS: MORPHINE SULFATE 2 MG/ML VIAL IVPUSH PRN ×6 (00:10→22:16)
[2020-07-01] MEDS ORDERED: PIPERACILLIN/TAZOBACTAM 4.5 GM VIAL IVPB ONE ×3 (00:58→17:42)
[2020-07-01] MEDS ORDERED: DEXTROSE 5%-WATER 100 ML IVPB ONE ×3 (00:59→17:42)
[2020-07-01] MEDS: PIPERACILLIN/TAZOB 4.5 GM 4.5 GM in DEXTROSE 5%-WATER 100 ML IVPB SCH ×3 (02:05→18:04)
[2020-07-01] MEDS: INSULIN (LEVEMIR) 100 UNITS/ML UNITS SQ SCH ×2 (06:48→22:13)
[2020-07-01] MEDS: INSULIN SLIDING SCALE (NOVOLOG) 1 VIAL SQ SCH ×4 (06:48→22:15)
[2020-07-01] MEDS ORDERED: PT OWN MED DRAWER 7, Y5N ONE ×2 (09:20→13:54)
[2020-07-01] MEDS: THIAMINE HCL 100 MG TABLET (FP) NGT SCH (09:41)
[2020-07-01] MEDS: LACTOBACILLUS ACIDOPHILUS 1 TABLET NGT SCH (09:42)
[2020-07-01] MEDS: METOPROLOL TARTRATE 25 MG TABLET (FP) GT SCH ×2 (09:42→22:13)
[2020-07-01] MEDS: MULTIVIT-MINERALS ORAL LIQUID NGT SCH (09:43)
[2020-07-01] MEDS: POLYETHYLENE GLYCOL 3350 119 GM BTL GT SCH (09:43)
[2020-07-01] MEDS: FAMOTIDINE 40 MG/5 ML ORAL SUSPENSION PEG SCH (10:41)
[2020-07-01] MEDS ORDERED: INSULIN (NOVOLOG) ASPART 100 UNITS/ML 10ML VIAL ONE ×2 (11:51→17:56)
[2020-07-01] MEDS: COLLAGENASE CLOSTRIDIUM HIST. 30 GRAMS TUBE TP SCH (15:34)
[2020-07-01] MEDS ORDERED: INSULIN (LEVEMIR) 100 UNITS/ML UNITS SQ ONE (21:10)
[2020-07-01] MEDS: APIXABAN 5 MG TABLET PEG SCH (22:13)
[2020-07-02] MEDS ORDERED: DEXTROSE 5%-WATER 100 ML IVPB ONE ×2 (01:52→08:56)
[2020-07-02] MEDS ORDERED: PIPERACILLIN/TAZOBACTAM 4.5 GM VIAL IVPB ONE ×2 (01:52→08:56)
[2020-07-02] MEDS: MORPHINE SULFATE 2 MG/ML VIAL IVPUSH PRN ×6 (02:08→22:07)
[2020-07-02] MEDS: PIPERACILLIN/TAZOB 4.5 GM 4.5 GM in DEXTROSE 5%-WATER 100 ML IVPB SCH ×2 (02:09→09:41)
[2020-07-02] MEDS: INSULIN SLIDING SCALE (NOVOLOG) 1 VIAL SQ SCH ×4 (06:10→22:09)
[2020-07-02] MEDS: INSULIN (LEVEMIR) 100 UNITS/ML UNITS SQ SCH ×2 (06:10→22:08)
[2020-07-02 09:11] LABS: HEMATOCRIT 31.9 % (35.4-49); HEMOGLOBIN 10.7 GM/dL (11.7-16.9); MCH 29.7 pg (25.7-33.7); MCHC 33.6 g/dl (32.0-35.9); MEAN CELL VOLUME 88.4 fl (80-96); MEAN PLT VOLUME 8.6 fl (7.5-11.1); PLATELET COUNT 305 K/MM3 (134-434); RBC 3.61 M/mm3 (4.00-5.60); RDW 16.7 % (11.9-15.9); WHITE BLOOD COUNT 7.3 K/mm3 (4.0-10.0)
[2020-07-02 09:22] LABS: POTASSIUM 4.4 mmol/L (3.5-5.1)
[2020-07-02 09:26] LABS: CALCIUM 9.6 mg/dL (8.5-10.1)
[2020-07-02 09:27] LABS: ALBUMIN 3.1 g/dl (3.4-5.0)
[2020-07-02 09:28] LABS: BLOOD UREA NITROGEN 14.1 mg/dL (7-18)
[2020-07-02 09:30] LABS: CREATININE 0.4 mg/dL (0.55-1.3); PHOSPHOROUS 4.5 mg/dL (2.5-4.9)
[2020-07-02 09:31] LABS: BILIRUBIN,TOTAL 0.3 mg/dL (0.2-1); TOT PROT 7.5 g/dl (6.4-8.2)
[2020-07-02] MEDS: APIXABAN 5 MG TABLET PEG SCH ×2 (09:41→22:07)
[2020-07-02] MEDS: METOPROLOL TARTRATE 25 MG TABLET (FP) GT SCH ×2 (09:42→22:09)
[2020-07-02] MEDS: LACTOBACILLUS ACIDOPHILUS 1 TABLET NGT SCH (09:42)
[2020-07-02] MEDS: THIAMINE HCL 100 MG TABLET (FP) NGT SCH (09:42)
[2020-07-02] MEDS: MULTIVIT-MINERALS ORAL LIQUID NGT SCH (09:43)
[2020-07-02] MEDS: FAMOTIDINE 40 MG/5 ML ORAL SUSPENSION PEG SCH (09:43)
[2020-07-02] MEDS: POLYETHYLENE GLYCOL 3350 119 GM BTL GT SCH (09:47)
[2020-07-02] MEDS: COLLAGENASE CLOSTRIDIUM HIST. 30 GRAMS TUBE TP SCH (14:00)
[2020-07-02] MEDS: MELATONIN 5 MG TABLETS NR PRN (22:09)
[2020-07-03] MEDS: MORPHINE SULFATE 2 MG/ML VIAL IVPUSH PRN ×2 (02:02→06:04)
[2020-07-03] MEDS: INSULIN SLIDING SCALE (NOVOLOG) 1 VIAL SQ SCH ×3 (06:01→16:52)
[2020-07-03] MEDS: INSULIN (LEVEMIR) 100 UNITS/ML UNITS SQ SCH (06:02)
[2020-07-03] MEDS ORDERED: PT OWN MED DRAWER 7, Y5N ONE (10:34)
[2020-07-03] MEDS: APIXABAN 5 MG TABLET PEG SCH (10:55)
[2020-07-03] MEDS: METOPROLOL TARTRATE 25 MG TABLET (FP) GT SCH (10:55)
[2020-07-03] MEDS: THIAMINE HCL 100 MG TABLET (FP) NGT SCH (10:56)
[2020-07-03] MEDS: FAMOTIDINE 40 MG/5 ML ORAL SUSPENSION PEG SCH (10:56)
[2020-07-03] MEDS: LACTOBACILLUS ACIDOPHILUS 1 TABLET NGT SCH (10:57)
[2020-07-03] MEDS: MULTIVIT-MINERALS ORAL LIQUID NGT SCH (10:57)
[2020-07-03] MEDS: POLYETHYLENE GLYCOL 3350 119 GM BTL GT SCH (10:58)
[2020-07-03] MEDS: COLLAGENASE CLOSTRIDIUM HIST. 30 GRAMS TUBE TP SCH (10:58)
[2020-07-03] MEDS ORDERED: oxyCODONE HCL 5 MG TABLET GT PRN (12:08)
[2020-07-03 15:38] VITALS: BP 129/70; PULSE 93; TEMP 98.5
[2020-07-03] MEDS ORDERED: PNEUMOC 13-VAL CONJ-DIP CRM/PF 0.5 ML DISP.SYRIN IM ONE (15:46)
[2020-07-03] MEDS ORDERED: FLU VACCINE (FLULAVAL) PF 60 MCG/0.5 ML SYRINGE 2020-2021 IM ONE (15:50)
[2020-07-03] MEDS ORDERED: PNEUMOCOCCAL 23 VACCINE 0.5 ML VIAL IM ONE (16:15)
[2020-07-03] MEDS ORDERED: QUEtiapine FUMARATE 50 MG TABLET PO SCH (22:00)
[2020-07-04] MEDS ORDERED: DOCUSATE SODIUM 100 MG CAPSULE (FP) PO SCH (10:00)
== END 2020-07-03 19:30 | DRG 4 ==
LOC: JER 15:22 → JERBED 05-06 00:03 → JICU 05-06 01:53 → J5S 05-29 04:29
PROVIDERS: ADMIT Internal Medicine Pulmonary Disease; ATTEND Internal Medicine
PROC: 5A1955Z Respiratory Ventilation, Greater than 96 Consecutive Hours (ICD-10-PCS; 2020-05-07)
PROC: 0CHY7BZ Insertion of Airway into Mouth and Throat, Via Natural or Artificial Opening (ICD-10-PCS; 2020-05-07)
PROC: 5A12012 Performance of Cardiac Output, Single, Manual (ICD-10-PCS; 2020-05-07)
PROC: 30233R1 Transfusion of Nonautologous Platelets into Peripheral Vein, Percutaneous Approach (ICD-10-PCS; 2020-05-07)
PROC: 0W9B30Z Drainage of Left Pleural Cavity with Drainage Device, Percutaneous Approach (ICD-10-PCS; 2020-05-12)
PROC: 0W9930Z Drainage of Right Pleural Cavity with Drainage Device, Percutaneous Approach (ICD-10-PCS; 2020-05-12)
PROC: 05H533Z Insertion of Infusion Device into Right Subclavian Vein, Percutaneous Approach (ICD-10-PCS; 2020-05-12)
PROC: B546ZZA Ultrasonography of Right Subclavian Vein, Guidance (ICD-10-PCS; 2020-05-12)
PROC: 0BC38ZZ Extirpation of Matter from Right Main Bronchus, Via Natural or Artificial Opening Endoscopic (ICD-10-PCS; 2020-05-16)
PROC: 30233N1 Transfusion of Nonautologous Red Blood Cells into Peripheral Vein, Percutaneous Approach (ICD-10-PCS; 2020-05-22)
PROC: 0BJ08ZZ Inspection of Tracheobronchial Tree, Via Natural or Artificial Opening Endoscopic (ICD-10-PCS; 2020-05-24)
PROC: 0B113F4 Bypass Trachea to Cutaneous with Tracheostomy Device, Percutaneous Approach (ICD-10-PCS; principal; 2020-05-24 13:00)
PROC: 0B21XFZ Change Tracheostomy Device in Trachea, External Approach (ICD-10-PCS; 2020-05-30)
PROC: 0T768DZ Dilation of Right Ureter with Intraluminal Device, Via Natural or Artificial Opening Endoscopic (ICD-10-PCS; 2020-06-10)
PROC: 0DH673Z Insertion of Infusion Device into Stomach, Via Natural or Artificial Opening (ICD-10-PCS; 2020-06-28)
PROC: 30233L1 Transfusion of Nonautologous Fresh Plasma into Peripheral Vein, Percutaneous Approach (ICD-10-PCS; 2020-06-28)
PROC: 30233K1 Transfusion of Nonautologous Frozen Plasma into Peripheral Vein, Percutaneous Approach (ICD-10-PCS; 2020-06-28)
DX: A41.59 Other Gram-negative sepsis (principal); E66.9 Obesity, unspecified; Z68.36 Body mass index [BMI] 36.0-36.9, adult; N39.0 Urinary tract infection, site not specified; F10.230 Alcohol dependence with withdrawal, uncomplicated; F11.20 Opioid dependence, uncomplicated; J93.9 Pneumothorax, unspecified; I46.9 Cardiac arrest, cause unspecified; J80 Acute respiratory distress syndrome; L89.153 Pressure ulcer of sacral region, stage 3; N17.9 Acute kidney failure, unspecified; D69.6 Thrombocytopenia, unspecified; I21.3 ST elevation (STEMI) myocardial infarction of unspecified site; E87.2 Acidosis; R65.21 Severe sepsis with septic shock; R57.1 Hypovolemic shock; J69.0 Pneumonitis due to inhalation of food and vomit; D64.9 Anemia, unspecified; R13.10 Dysphagia, unspecified; R74.01 Elevation of levels of liver transaminase levels; I26.99 Other pulmonary embolism without acute cor pulmonale; K56.7 Ileus, unspecified; E87.6 Hypokalemia; E11.40 Type 2 diabetes mellitus with diabetic neuropathy, unspecified; E11.65 Type 2 diabetes mellitus with hyperglycemia; D72.829 Elevated white blood cell count, unspecified; R00.0 Tachycardia, unspecified; I82.621 Acute embolism and thrombosis of deep veins of right upper extremity; E87.0 Hyperosmolality and hypernatremia; D68.9 Coagulation defect, unspecified; N15.1 Renal and perinephric abscess; N10 Acute pyelonephritis
CPT/HCPCS: 31500; 36415; 36430; 36600; 70450-TC; 71045-TC-FY; 71250-TC; 71260-TC; 71275-TC; 72128-TC; 72131-TC; 74018-TC-FY; 74174-TC; 74176-TC; 74177-TC; 74230-TC-FY; 76000-TC-FY; 76705-TC; 76775-TC; 80048; 80053; 80307; 81003; 82010; 82105; 82140; 82272; 82550; 82553; 82565; 82728; 82803; 82947; 82962; 83010; 83036; 83516; 83540; 83550; 83605; 83615; 83735; 83930; 84100; 84300; 84439; 84443; 84484; 84540; 85025; 85027; 85045; 85362; 85379; 85384; 85610; 85651; 85730; 86140; 86704; 86705; 86706; 86707; 86769; 86803; 86850; 86900; 86901; 86922; 87040; 87070; 87077; 87086; 87106; 87186; 87205; 87324; 87389; 87449; 87491; 87591; 87661; 87804; 90732; 92611-GN; 93005; 93010; 93306-TC; 93970-TC; 94002; 94640; 94760; 97116-GP; 97162-GP; 99291; C9803; G0009; G0480; J0131; J0282; J0637; J1644; J1756; J3480; P9017; P9034; P9038; P9047; P9058; Q2036; Q9967; U0003